=== PATIENT | female | born 1950 | race Two or more races ===

== ENCOUNTER 2020-02-16 11:05 | Outpatient (REF) | payer MEDICARE, OTHER, SELFPAY ==
[2020-02-16 12:22] LABS: Cholesterol 129 mg/dL; HDL Cholesterol 44 mg/dL; LDL Cholesterol Calculated 75 mg/dl; Triglycerides 51 mg/dL
[2020-02-16 18:19] LABS: Anion Gap 14 (12-20); Blood Urea Nitrogen 13 mg/dL (9-16); Calcium 8.8 mg/dL (8.4-10.2); Carbon Dioxide 26 mmol/L (22-29); Chloride 103 mmol/L (96-108); Estimated Glomerular Filt Rate > 60; Glucose Fasting 101 mg/dL (60-99); Potassium 4.7 mmol/l (3.3-5.1); Sodium 138 mmol/L (135-145)
[2020-02-21 11:37] LABS: Vitamin D 25-OH, D2 <4 ng/mL; Vitamin D 25-OH, D3 38 ng/mL; Vitamin D 25-OH, Total 38 ng/mL (30-100)
== END 2020-02-16 11:06 | disposition home or self-care (01) ==
LOC: HO.LAB 11:05
PROVIDERS: PCP Internal Medicine; Visit Provider Nurse Practitioner Family
DX: E78.00 Pure hypercholesterolemia, unspecified (principal); Z00.00 Encounter for general adult medical examination without abnormal findings
CPT/HCPCS: 80048; 80061; 82306

== ENCOUNTER 2020-05-14 16:14 | Outpatient (REF) | payer MEDICARE, OTHER, SELFPAY ==
[2020-05-14 16:40] LABS: MANUAL DIFF FLAG NO
[2020-05-14 16:53] LABS: Basophils Percent Auto 0.5 % (0-2); Eosinophils Percent Auto 0.6 % (0-4); Hematocrit 40.8 % (37-47); Hemoglobin 12.7 g/dl (12.0-16.0); Imm Gran Abs Auto 0.02 X10*3/uL (0.00-0.03); Imm Gran Pct Auto 0.3 % (0.0-0.4); Lymphocytes Absolute Auto 1.6 X10*3/uL (1.2-4.9); Lymphocytes Percent Auto 25.7 % (20-40); Mean Corpuscular HGB Conc 31.1 g/dl (31.0-35.0); Mean Corpuscular Hemoglobin 22.5 pg (27.0-33.0); Mean Corpuscular Volume 72.2 fL (80-98); Monocytes Absolute Auto 0.4 X10*3/uL (0.1-1.2); Monocytes Percent Auto 6.2 % (2-11); Neutrophils Absolute Auto 4.2 X10*3/uL (2.0-8.3); Neutrophils Percent Auto 66.7 % (45-73); Platelet Count 287 X10*3/uL (160-400); Red Blood Count 5.65 X10*6/uL (4.20-5.50); Red Cell Distribution Width 15.8 % (11.0-16.0); White Blood Count 6.3 X10*3/uL (4.8-10.8)
[2020-05-14 17:11] LABS: Anion Gap 14 (12-20); Blood Urea Nitrogen 20 mg/dL (9-16); Calcium 9.3 mg/dL (8.4-10.2); Carbon Dioxide 26 mmol/L (22-29); Chloride 107 mmol/L (96-108); Estimated Glomerular Filt Rate > 60; Glucose Fasting 87 mg/dL (60-99); Potassium 4.7 mmol/l (3.3-5.1); Sodium 142 mmol/L (135-145)
== END 2020-05-14 16:15 | disposition home or self-care (01) ==
LOC: HO.LAB 16:14
PROVIDERS: Nurse Practitioner Family; PCP Internal Medicine; Visit Provider Internal Medicine
DX: Z00.00 Encounter for general adult medical examination without abnormal findings (principal); R04.0 Epistaxis
CPT/HCPCS: 36415; 80048; 85025

== ENCOUNTER 2020-09-26 08:02 | Outpatient (REF) | payer MEDICARE, OTHER, SELFPAY ==
--- NOTE | 2020-09-26 08:27 | ECG_ITS ---
Test Reason : HYPERLIPIDEMIA Blood Pressure : / mmHG Vent. Rate : 063 BPM Atrial Rate : 063 BPM P-R Int : 134 ms QRS Dur : 076 ms QT Int : 408 ms P-R-T Axes : 059 010 048 degrees QTc Int : 417 ms Normal sinus rhythm Normal ECG When compared with ECG of 30-DEC-2019 10:43, No significant change was found Referred By: Melania Reynoso Electronically Signed By:NHI POLO MD
[2020-09-26 08:46] LABS: MANUAL DIFF FLAG NO
[2020-09-26 08:50] LABS: Basophils Percent Auto 0.5 % (0-2); Eosinophils Percent Auto 0.5 % (0-4); Hematocrit 43.2 % (37-47); Hemoglobin 13.5 g/dl (12.0-16.0); Imm Gran Abs Auto 0.01 X10*3/uL (0.00-0.03); Imm Gran Pct Auto 0.2 % (0.0-0.4); Lymphocytes Absolute Auto 1.6 X10*3/uL (1.2-4.9); Lymphocytes Percent Auto 36.9 % (20-40); Mean Corpuscular HGB Conc 31.3 g/dl (31.0-35.0); Mean Corpuscular Hemoglobin 22.5 pg (27.0-33.0); Monocytes Absolute Auto 0.4 X10*3/uL (0.1-1.2); Monocytes Percent Auto 8.1 % (2-11); Neutrophils Absolute Auto 2.3 X10*3/uL (2.0-8.3); Neutrophils Percent Auto 53.8 % (45-73); Platelet Count 276 X10*3/uL (160-400); Red Cell Distribution Width 18.1 % (11.0-16.0); White Blood Count 4.3 X10*3/uL (4.8-10.8)
[2020-09-26 09:12] LABS: Alanine Aminotransferase 36 U/L (0-31); Albumin Level 4.3 g/dL (3.5-5.0); Alkaline Phosphatase 84 U/L (39-117); Anion Gap 12 (12-20); Aspartate Amino Transferase 24 U/L (5-31); Bilirubin Total 1.3 mg/dL (0.0-1.0); Blood Urea Nitrogen 17 mg/dL (9-16); Calcium 9.4 mg/dL (8.4-10.2); Carbon Dioxide 25 mmol/L (22-29); Chloride 110 mmol/L (96-108); Cholesterol 140 mg/dL; Estimated Glomerular Filt Rate > 60; Glucose Fasting 103 mg/dL (60-99); HDL Cholesterol 52 mg/dL; LDL Cholesterol Calculated 75 mg/dl; Potassium 4.4 mmol/L (3.3-5.1); Sodium 143 mmol/L (135-145); Triglycerides 66 mg/dL
[2020-09-30 14:17] LABS: Vitamin D 25-OH, D2 <4 ng/mL; Vitamin D 25-OH, D3 46 ng/mL; Vitamin D 25-OH, Total 46 ng/mL (30-100)
== END 2020-09-26 08:03 | disposition home or self-care (01) ==
LOC: HO.LAB 08:02
PROVIDERS: PCP Internal Medicine; Visit Provider Internal Medicine
DX: E78.5 Hyperlipidemia, unspecified (principal); R07.9 Chest pain, unspecified; R04.0 Epistaxis; D64.9 Anemia, unspecified; E55.9 Vitamin D deficiency, unspecified; M81.0 Age-related osteoporosis without current pathological fracture
CPT/HCPCS: 36415; 80053; 80061; 82306; 85025; 93005

== ENCOUNTER 2020-11-15 09:52 | Outpatient (REF) | payer MEDICARE, OTHER, SELFPAY ==
--- NOTE | ~2020-11-15 | MM_ITS ---
EXAMINATION: MM SCREENING DIGITAL BREAST TOMOSYNTHESIS, BILATERAL CLINICAL INFORMATION: Screening. Asymptomatic. History reduction mammoplasty 2010. The lifetime risk of breast cancer based on the Tyrer-Cuzick Model is 7%. COMPARISON: Mammography: 11/09/2019, 01/16/2019, 01/12/2018 TECHNIQUE: Digital breast tomosynthesis is performed in both the craniocaudal and mediolateral oblique views along with computer-aided detection (CAD). Synthesized 2D images are generated from the tomosynthesis. FINDINGS: There are scattered areas of fibroglandular density (ACR BI-RADS breast composition Category b). Parenchymal pattern is similar to prior studies. There is stable scarring and scattered clips consistent with the reduction mammoplasty. Biopsy clip marker again noted posterior 12:00 left breast. Neither breast shows interval mass or developing density or interval architectural abnormality. There are no abnormal calcifications. The axilla and skin contours are unremarkable. No significant changes. MM/MM tomosynthesis screening BI IMPRESSION: No mammographic evidence of malignancy. ASSESSMENT: BI-RADS 2: Benign RECOMMENDATION: Routine annual mammography screening. This patient's information was entered into a reminder system with a target due date for their next mammogram.
== END 2020-11-15 09:53 | disposition home or self-care (01) ==
LOC: HO.MAMMO 09:52
PROVIDERS: Visit Provider Obstetrics & Gynecology Gynecology
DX: Z12.31 Encounter for screening mammogram for malignant neoplasm of breast (principal)
CPT/HCPCS: 77063; 77067

== ENCOUNTER 2021-04-23 09:54 | Outpatient (REF) | payer MEDICARE, OTHER, SELFPAY ==
--- NOTE | ~2021-04-23 | MM_ITS ---
EXAMINATION: BONE DENSITOMETRY CLINICAL INDICATION: Osteoporosis. COMPARISON: Previous BD dated 04/18/2019 and baseline BD dated 11/17/2006. TECHNIQUE: Using a Bondsy DXA System (software version: 13.1) manufactured by [employer], dual-energy x-ray absorptiometry was performed of the lumbar spine and left hip. The images are of good technical quality. Summary results are attached. FINDINGS: AP SPINE L1-L4: Current: BMD 0.805 g/cm2, Z-score -1.0, T-score -3.1, osteoporosis, 9.2% decrease from previous, 9.6% decrease from baseline (<5% change is not significant). Prior: BMD 0.887 g/cm2. Baseline: BMD 0.890 g/cm2. LEFT FEMUR, NECK: Current: BMD 0.800 g/cm2, Z-score 0.3, T-score -1.7, osteopenia. Prior: BMD 0.759 g/cm2. Baseline: BMD 0.854 g/cm2. LEFT FEMUR, TOTAL: Current: BMD 0.826 g/cm2, Z-score 0.4, T-score -1.4, osteopenia, 1.1% increase from previous, 10.8% decrease from baseline (<5% change is not significant). Prior: BMD 0.817 g/cm2. Baseline: BMD 0.926 g/cm2. IDENTIFIED RISK FACTORS: Early menopause, height loss, low calcium intake, osteoporosis, secondary osteoporosis. HISTORY OF FRACTURE: None listed. MEDICATIONS: Calcium, vitamin D. MM/XR DEXA axial skeleton IMPRESSION: 1. DIAGNOSIS: Osteoporosis based on the lowest T-score value of -3.1 in the lumbar spine applying World Health Organization criteria. 2. 10-YEAR FRACTURE RISK PREDICTION, FRAX: According to the guidelines, FRAX calculation should only be performed on patients in the osteopenia bone density category. 3. Treatment Recommendations: NOF guidelines recommend consideration for treatment in postmenopausal women and men age 50 and older presenting with the following: -A hip or vertebral (clinical or morphometric) fracture. -T-score less than or equal to -2.5 at the femoral neck or spine after appropriate evaluation to exclude secondary causes. -Low bone mass at the hip or spine and a 10-year fracture probability by FRAX of greater than or equal to 3% for hip fracture or greater than or equal to 20% for major osteoporotic fracture based on the [place] adapted WHO algorithm. 4. Other Recommendations: All treatment decisions require clinical judgment and consideration of individual patient factors, including patient preferences, comorbidities, previous drug use, risk factors not captured in the FRAX model (e.g. frailty, falls, vitamin D deficiency, increased bone turnover, interval significant decline in bone density) and possible under or overestimation of fracture risk by FRAX. Additional medical evaluation for secondary cause of low bone mineral density may be appropriate. FUTURE SCAN RECOMMENDATION: People with diagnosed cases of osteoporosis or at high risk for fracture should have regular bone mineral density tests. For patients eligible for Medicare, routine testing is allowed once every 2 years. The testing frequency can be increased to one year for patients who have rapidly progressing disease, those who are receiving or discontinuing medical therapy to restore bone mass, or have additional risk factors.
== END 2021-04-23 09:55 | disposition home or self-care (01) ==
LOC: HO.MAMMO 09:54
PROVIDERS: PCP Internal Medicine; Visit Provider Obstetrics & Gynecology Gynecology
DX: M81.0 Age-related osteoporosis without current pathological fracture (principal); E83.51 Hypocalcemia; Z78.0 Asymptomatic menopausal state
CPT/HCPCS: 77080

== ENCOUNTER → 2021-05-08 08:58 | Outpatient (BNVA) | payer MEDICARE, OTHER, SELFPAY | PROVIDERS: PCP Internal Medicine; Visit Provider Physician Assistant | DX: R19.4 Change in bowel habit (principal) | CPT/HCPCS: 99202 ==

== ENCOUNTER 2021-06-03 10:25 | Day surgery (SDC) | payer MEDICARE, OTHER, SELFPAY ==
[2021-06-03 09:03] VITALS: BMI 22.1
--- NOTE | 2021-06-03 12:32 | MHC.SHP ---
Pre-Procedural Eval Section A Date of Service: 06/03/21 Section B Chief Complaint: melena Details of Present Illness: altered bowel habits Relevant Family History (Specify if Yes): No Relevant Social History: None Present Medications: see Short Stay Collaborative assessment Medical History: Significant History (Aphasia Dyslipidemia Epistaxis Osteoporosis) History of Previous Operations: Relevant previous surgery/procedure and date(s) (H/O bilateral breast reduction surgery History of esophagogastroduodenoscopy (EGD) Hx of colonoscopy) Allergies: Allergies Allergy/AdvReac Type Severity Reaction Status Date / Time peanut [PEANUT] Allergy Severe ANAPHYLAXIS Verified 05/08/21 09:05 Review of Systems Sugical H&P ROS: Negative: Constitution, Cardiovascular, Respiratory, Neurological, Psychiatric, Hem-Onc, Allergic/Immunologic, Gastrointestinal, Genitourinary, Musculoskeletal, Integumentary, Endocrine and Eyes/Ears/Nose/Throat Exam Surgical H&P Exam: Normal: HEENT, Normal: Heart, Normal: Lungs, Normal: Extremities, Normal: Abdomen, Normal: Skin and Normal: Neurological Plan Diagnosis/Plan: Unchanged I have reviewed the history and physical and performed a pertinent physical examination on my patient. No changes have occurred unless specified. EGD being done due to description of melenic stools.
--- NOTE | 2021-06-03 12:38 | P.CONAN_ITS ---
[facility] Active Problems Active Problems: All Active Problems (Updated 05/08/21 @ 09:53 by Lillie Lockett PA-C) Change in bowel habits (Acute) Pre-op evaluation (Acute) Epistaxis (Acute) Aphasia (Acute) Dyslipidemia (Acute) Osteoporosis (Acute) Tingling of left upper extremity (Acute) Physical exam (Acute) Past Medical History Medical History (Updated 05/08/21 @ 09:53 by Lillie Lockett PA-C) Aphasia Dyslipidemia Epistaxis Osteoporosis Physical exam Pre-op evaluation Family History Family History Father CVD (cardiovascular disease) Mother Cancer Daughter No problems noted. Family history of problems with anesthesia: No Surgical History Surgical History H/O bilateral breast reduction surgery History of esophagogastroduodenoscopy (EGD) Hx of colonoscopy History of Problems with Anesthesia: No Social History Social History Housing: Apartment Alcohol intake: never Patient Tobacco Use Status: Never used Tobacco e-Cigarette/Vaping Use: Never Used Second Hand Smoke Exposure: No Advance Directives: No Advance Directives Information Provided: Yes service: No Current occupational status: unemployed and disabled Meds Allergies Allergy/AdvReac Type Severity Reaction Status Date / Time peanut [PEANUT] Allergy Severe ANAPHYLAXIS Verified 05/08/21 09:05 Home Medications Medication Instructions Recorded Confirmed Last Taken Type ascorbic acid (vitamin C) 100 mg 100 mg PO DAILY 02/16/20 05/08/21 Unknown History chewable tablet cholecalciferol (vitamin D3) 50 50 mcg PO DAILY 02/16/20 05/08/21 Unknown History mcg (2,000 unit) capsule Exam Exam Date and Time: June 03, 2021 1238 Height,Weight and Vital Signs: Height 5 ft 1 in Weight 53.07 kg Airway Mallampati Class: I TM Dist: >3cm Neck ROM: Full Assessment and Plan Assessment Anesthesia Assessment: Anesthesia Plan Discussed Final Anesthetic Review Family History of Problems with Anesthesia: No History of Problems with Anesthesia: No NPO: Yes ASA Class: II Final Preanesthetic Review: No Changes in Pt Med Stat, Meds/Allgs Chart Reviewed, Consent Obtained/Reviewed and Anes Risks/Benef Reviewed Patient Risk: Intermediate Procedure Risk: Low Anesthetic Plan Anesthetic Plan: MAC: Disposition: Standard PACU
[2021-06-03 12:41] VITALS: BMI 21.7
[2021-06-03 12:53] VITALS: BP 132/76; PULSE 78; RESP 16; TEMP 37.2; O2SAT 98
[2021-06-03] MEDS: Lactated Ringers 1,000 ML 100 ML IVCONT (13:08)
--- NOTE | 2021-06-03 13:14 | P.BOP_ITS ---
Brief Operative Note Date of Service: 06/03/21 Pre-op diagnosis: altered bowel habit, melena Post-op diagnosis: same Procedure: see op note Surgeon: Liza Love MD Anesthesia: MAC Was an Outdoor Power Equipment Mechanic used for this Procedure?: No Estimated blood loss (mL): 0 Condition: stable Disposition: PACU
--- NOTE | 2021-06-03 13:15 | P.OP_ITS ---
Operative Note Operative Note Date of Service: 06/03/21 Narrative: Operative Information Procedure Description: EGD, Colonoscopy FLEXIBLE TRANSORAL UPPER GASTROINTESTINAL ENDOSCOPY AND COLONOSCOPY PROCEDURE NOTE UPPER ENDOSCOPY Consent: Indications for the procedure and potential complications of bleeding, perforation, reaction to medications and missed diagnosis were discussed with the patient and informed consent was obtained. Instrument: Olympus GIF H 190 J mid size upper endoscope Monitoring: Vital signs and clinical assessment, continuous EKG monitoring, Pulse oximetry, Carbon Dioxide monitoring and blood pressure monitoring were done throughout the procedure. Procedure: The patient was placed in the left lateral decubitis position and pre-procedure medications were administered and a bite block was placed. The endoscope was inserted into the mouth and advanced under direct vision to the third part of duodenum. A careful inspection was made as the upper endoscope was withdrawn including a retroflexed examination of the proximal stomach; Findings and interventions are described below. Findings: Larynx:normal Esophagus: GE junction at 37 cm, diaphragm hiatus at 37 cm, erythema and inflammation at GEJ, bx taken Stomach: Patchy erythema and scarring. Biopsies were obtained. Grade 2 flap valve on retroflexed examination of the cardia. Duodenum: Erythema of bulb, bx taken Intervention: Biopsies as noted above COLONOSCOPY Instrument: Olympus variable stiffness pediatric scope 190L Colonoscopy Monitoring: Vital signs and clinical assessment, continuous EKG monitoring, Pulse oximetry, Carbon Dioxide monitoring and blood pressure monitoring were done throughout the procedure. Colon withdrawal time was 11 minutes. Procedure: The patient was placed in the left lateral decubitis position and pre-procedure medications were administered. After a digital rectal examination of the ano-rectum, the video colonoscope was inserted into the rectum and advanced through the colon to the cecum/TI. The colonoscope was slowly withdrawn in a retrograde panoramic fashion and the colon mucosa was carefully examined including a retroflexed view of the rectum. Findings and interventions are described below. Procedure Difficulty: easy Findings: Terminal Ileum-normal Cecum:normal, tattoo leida noted Ascending Colon: 10 mm sessile polyp removed with cold snare, not retrieved Transverse Colon -normal Descending Colon:normal Sigmoid Colon: normal Rectum: Retroflexion with small internal hemorrhoids, grade I Anorectum - normal Colon preparation: Mcclelland Bowel Preparation Scale Right colon; 2 Transverse colon: 2 Left colon; 2 (0 = Unprepared colon segment with mucosa not seen due to solid stool that cannot be cleared. 1 = Portion of mucosa of the colon segment seen, but other areas of the colon segment not well seen due to staining, residual stool and/or opaque liquid. 2 = Minor amount of residual staining, small fragments of stool and/or opaque liquid, but mucosa of colon segment seen well. 3 = Entire mucosa of colon segment seen well with no residual staining, small fragments of stool or opaque liquid) Impression and Post Procedure Diagnosis: Endoscopy Findings: gastritis esophagitis duodenitis Colonoscopy Findings: polyp internal hemorrhoids Plan: Await Pathology results Repeat Colonoscopy in 5 years due to polyp or earlier if clinically indicated High fiber diet leaflet avoid straining at stool, epsom salts and sitz bath, anusol supps or cream await upper GI bx, may benefit from PPI Above findings were reviewed with the patient and relevant handouts were provided if indicated.
[2021-06-03 14:16] VITALS: BP 115/71; PULSE 77; RESP 16; TEMP 36.1; O2SAT 99
[2021-06-03 14:31] VITALS: BP 126/75; PULSE 77; RESP 18; TEMP 36.2; O2SAT 100
== END 2021-06-03 15:03 | disposition home or self-care (01) ==
PROVIDERS: PCP Internal Medicine; Visit Provider Internal Medicine Gastroenterology
PROC: (CPT 45385; principal; 2021-06-03 12:50)
DX: K92.1 Melena (principal); K63.5 Polyp of colon; K64.0 First degree hemorrhoids; K59.00 Constipation, unspecified; K29.50 Unspecified chronic gastritis without bleeding; B96.81 Helicobacter pylori [H. pylori] as the cause of diseases classified elsewhere; K29.80 Duodenitis without bleeding; K20.80 Other esophagitis without bleeding; K44.9 Diaphragmatic hernia without obstruction or gangrene; E78.5 Hyperlipidemia, unspecified; R47.01 Aphasia; R04.0 Epistaxis; M81.0 Age-related osteoporosis without current pathological fracture; Z79.82 Long term (current) use of aspirin; Z79.899 Other long term (current) drug therapy; Z91.010 Allergy to peanuts
CPT/HCPCS: 45385; 43239; 88305; 88342

== ENCOUNTER 2021-07-17 11:11 | Outpatient (REF) | payer MEDICARE, OTHER, SELFPAY ==
[2021-07-19 15:25] LABS: H Pylori Breath Test Negative (Negative)
== END 2021-07-17 11:12 | disposition home or self-care (01) ==
LOC: HO.LNP 11:11
PROVIDERS: PCP Internal Medicine; Visit Provider Physician Assistant
DX: A04.8 Other specified bacterial intestinal infections (principal); K63.5 Polyp of colon
CPT/HCPCS: 83013; 99212

== ENCOUNTER 2021-07-18 08:49 | Outpatient (REF) | payer MEDICARE, OTHER, SELFPAY ==
[2021-07-18 09:49] LABS: Basophils Percent Auto 0.8 % (0-2); Eosinophils Absolute Auto 0.1 X10*3/uL (0.0-0.4); Eosinophils Percent Auto 1.6 % (0-4); Hematocrit 42.3 % (37.0-47.0); Hemoglobin 13.1 g/dl (12.0-16.0); Imm Gran Abs Auto 0.01 X10*3/uL (0.00-0.03); Imm Gran Pct Auto 0.3 % (0.0-0.4); Lymphocytes Absolute Auto 1.5 X10*3/uL (1.2-4.9); Lymphocytes Percent Auto 40.2 % (20-40); MANUAL DIFF FLAG SCAN; Mean Corpuscular Hemoglobin 22.4 pg (27.0-33.0); Mean Corpuscular Volume 72.3 fL (80.0-98.0); Mean Platelet Volume 11.7 fL (9.4-12.3); Monocytes Absolute Auto 0.3 X10*3/uL (0.1-1.2); Monocytes Percent Auto 8.1 % (2-11); Neutrophils Absolute Auto 1.8 x10*3/uL (2.0-8.3); Platelet Count 311 X10*3/uL (160-400); Red Blood Count 5.85 X10*6/uL (4.20-5.50); Red Cell Distribution Width 17.1 % (11.0-16.0); SCAN SMEAR FLAG 1; White Blood Count 3.7 X10*3/uL (4.8-10.8)
[2021-07-18 10:19] LABS: Alanine Aminotransferase 68 U/L (0-31); Alkaline Phosphatase 82 U/L (39-117); Anion Gap 10 (12-20); Aspartate Amino Transferase 48 U/L (5-31); Bilirubin Direct 0.4 mg/dL (0.0-0.5); Bilirubin Total 0.9 mg/dL (0.0-1.0); Blood Urea Nitrogen 12 mg/dL (9-16); Calcium 9.3 mg/dL (8.4-10.2); Carbon Dioxide 28 mmol/L (22-29); Chloride 108 mmol/L (96-108); Cholesterol 166 mg/dL; Estimated Glomerular Filt Rate > 60; Glucose Random 91 mg/dL (60-115); HDL Cholesterol 53 mg/dL; LDL Cholesterol Calculated 104 mg/dl; Potassium 5.1 mmol/L (3.3-5.1); SLIDE REVIEW VERIFIED; Sodium 141 mmol/L (135-145); Total Protein 6.8 g/dL (6.5-8.0); Triglycerides 47 mg/dL
== END 2021-07-18 08:50 | disposition home or self-care (01) ==
LOC: HO.LAB 08:49
PROVIDERS: PCP Internal Medicine; Visit Provider Physician Assistant
DX: R79.89 Other specified abnormal findings of blood chemistry (principal); A04.8 Other specified bacterial intestinal infections; K76.0 Fatty (change of) liver, not elsewhere classified
CPT/HCPCS: 36415; 80053; 80061; 82248; 85025

== ENCOUNTER → 2021-08-06 11:52 | Outpatient (BNVA) | payer MEDICARE, OTHER, SELFPAY | PROVIDERS: Visit Provider Physician Assistant | DX: R74.8 Abnormal levels of other serum enzymes (principal); A04.8 Other specified bacterial intestinal infections | CPT/HCPCS: Q3014 ==

== ENCOUNTER 2021-08-08 11:51 | Outpatient (REF) | payer MEDICARE, OTHER, SELFPAY ==
[2021-08-08 14:20] LABS: Thyroid Stimulating Hormone 0.86 uIU/mL (0.32-4.0)
[2021-08-11 04:15] LABS: ~HepC Num1 0.08 S/CO (0.00-0.79); ~Hepatitis C Antibody Nonreactive (Nonreactive)
[2021-08-11 04:34] LABS: HBS Num1 5.24 mIU/mL (0-7.99); HBc Num1 0.08 S/CO (0.00-0.79); HBsAGNum1 0.27 S/CO (0.00-0.99); Hepatitis B Core Antibody Nonreactive (Nonreactive); Hepatitis B Surface Antigen Negative (Negative); ~Hepatitis B Surface Antibody NONREACTIVE (Nonreactive)
[2021-08-11 14:26] LABS: Alpha 1 Anti-trypsin 159 mg/dL (83-199)
[2021-08-11 19:32] LABS: Anti Nuclear Antibody Screen POSITIVE (NEGATIVE)
[2021-08-13 03:56] LABS: Hepatitis A Antibody IgM 0.23 Index (0-0.79); ~Hepatitis A Antibody IgM Nonreactive (Nonreactive)
[2021-08-14 12:32] LABS: Mitochondrial Antibodies NEGATIVE (NEGATIVE)
== END 2021-08-08 11:52 | disposition home or self-care (01) ==
LOC: HO.LAB 11:51
PROVIDERS: PCP Internal Medicine; Visit Provider Physician Assistant
DX: Z01.84 Encounter for antibody response examination (principal); R74.01 Elevation of levels of liver transaminase levels; K59.09 Other constipation; R79.89 Other specified abnormal findings of blood chemistry
CPT/HCPCS: 36415; 82103; 84443; 86038; 86039; 86255; 86256; 86704; 86706; 86709; 86803; 87340

== ENCOUNTER 2021-09-08 08:56 | Outpatient (REF) | payer MEDICARE, OTHER, SELFPAY ==
--- NOTE | ~2021-09-08 | US_ITS ---
EXAMINATION: US COMPLETE ABDOMEN WITH LIVER ELASTOGRAPHY CLINICAL INFORMATION: Elevated liver function tests. Abnormal bilirubin. COMPARISON: None. TECHNIQUE: Real-time imaging of the abdominal viscera. Noninvasive ultrasound liver fibrosis assessment is performed using Guevara ElastPQ point quantification shear wave elastography (2D-SWE) with a C5-2 MHz transducer. Multiple elastography samples are obtained. FINDINGS: PANCREAS: Normal. ABDOMINAL AORTA: The proximal, middle, and distal aortic segments are normal in caliber. INFERIOR VENA CAVA: Visualized portions are normal. LIVER: Normal. The liver demonstrates normal size, contour and echogenicity. No focal lesion or intrahepatic biliary duct dilatation. The right lobe measures 13 cm in length. The left lobe measures 6 cm in length. Portal flow is normal/hepatopedal Shear wave liver elastography median stiffness is 1.6 m/s (reference: normal median stiffness is 1.3 m/s or less). IQR/median stiffness to assess sampling precision is 0.17 (reference: good quality data set is IQR/median stiffness of 0.15 or less). GALLBLADDER: Normal. The gallbladder is physiologically distended without evidence of stones, sludge, polyps, wall thickening or pericholecystic fluid. COMMON BILE DUCT: Normal in caliber measuring 0.3 cm in diameter. RIGHT KIDNEY: Normal. No hydronephrosis. No renal calculi or focal parenchymal lesions. The kidney measures 10 cm in maximum dimension. LEFT KIDNEY: Normal. No hydronephrosis. No renal calculi or focal parenchymal lesions. The kidney measures 9 cm in maximum dimension. SPLEEN: Normal. The spleen measures 8 cm in maximum dimension. FREE FLUID: None. US/US abdomen comp w elastography IMPRESSION: 1. Impression: Unremarkable exam 2. Liver elastography: Slightly limited due to sampling error. In the absence of other known clinical signs, rules out compensated advanced chronic liver disease. REFERENCE: Society of Radiologists in Ultrasound Liver Stiffness Thresholds (2020): LIVER STIFFNESS THRESHOLDS: *Liver Stiffness equal or less than 1.3 m/s: High probability of being normal. *Liver Stiffness less than 1.7 m/s: In the absence of other known clinical signs, rules out compensated advanced chronic liver disease. *Liver Stiffness 1.7-2.1 m/s: Suggestive of compensated advanced chronic liver disease but need further test for confirmation. *Liver Stiffness over 2.1 m/s: Rules in compensated advanced chronic liver disease. *Liver Stiffness over 2.4 m/s: Suggestive of clinically significant portal hypertension. QUALITY OF DATA SET: *IQR/Median value equal or less than 0.15 implies a quality data set. *IQR/Median value over 0.15 implies a poor quality data set. SIGNIFICANT CHANGE FROM PRIOR EXAM: Significant change if liver stiffness measurement is 10% or greater from prior exam. OTHER CONSIDERATIONS: The stage of liver fibrosis may be overestimated in the setting of acute hepatitis, liver inflammation, elevated liver function tests, hepatic vascular congestion, obstructive cholestasis, non-fasting state, and infiltrative diseases such as amyloidosis and lymphoma. In some patients with NAFLD, the liver stiffness thresholds for compensated advanced chronic liver disease may be lower. In causes other than viral hepatitis and NAFLD, liver stiffness thresholds are not well established.
== END 2021-09-08 08:57 | disposition home or self-care (01) ==
LOC: HO.US 08:56
PROVIDERS: Visit Provider Physician Assistant
DX: R74.8 Abnormal levels of other serum enzymes (principal); R79.89 Other specified abnormal findings of blood chemistry
CPT/HCPCS: 76705; 76981

== ENCOUNTER 2021-11-18 09:32 | Outpatient (REF) | payer MEDICARE, OTHER, SELFPAY ==
--- NOTE | ~2021-11-18 | MM_ITS ---
EXAMINATION: MM SCREENING DIGITAL BREAST TOMOSYNTHESIS, BILATERAL CLINICAL INFORMATION: Screening. Asymptomatic. Prior reduction mammoplasty, 2010. The lifetime risk of breast cancer based on the Tyrer-Cuzick Model is 2%. COMPARISON: Mammography: 11/15/2020, 11/09/2019, 01/16/2019 TECHNIQUE: Digital breast tomosynthesis is performed in both the craniocaudal and mediolateral oblique views along with computer-aided detection (CAD). Synthesized 2D images are generated from the tomosynthesis. FINDINGS: There are scattered areas of fibroglandular density (ACR BI-RADS breast composition Category b). There is bilateral stable scarring and surgical clips consistent with the prior reduction mammoplasty. Biopsy clip marker present left posterior 12:00 position. Neither breast shows interval mass or architectural abnormality or developing density. No abnormal calcifications. No significant changes. MM/MM tomosynthesis screening BI IMPRESSION: No mammographic evidence of malignancy. ASSESSMENT: BI-RADS 2: Benign RECOMMENDATION: Routine annual mammography screening. This patient's information was entered into a reminder system with a target due date for their next mammogram.
== END 2021-11-18 09:33 | disposition home or self-care (01) ==
LOC: HO.MAMMO 09:32
PROVIDERS: Visit Provider Obstetrics & Gynecology Gynecology
DX: Z12.31 Encounter for screening mammogram for malignant neoplasm of breast (principal)
CPT/HCPCS: 77063; 77067

== ENCOUNTER 2022-03-24 13:19 | Emergency (ER) | payer MEDICARE, OTHER, SELFPAY ==
--- NOTE | ~2022-03-24 | CT_ITS ---
EXAMINATION: CT HEAD WITHOUT CONTRAST CLINICAL INFORMATION: Dizziness. Facial tingling. COMPARISON: Head CT 10/22/2019. TECHNIQUE: Contiguous axial imaging was performed from the skull base to vertex without intravenous administration of contrast. This CT examination was performed using dose optimization techniques as appropriate, variously including the following: *Automated exposure control *Adjustment of mA and/or kV according to patient size (this includes techniques or standardized protocols for targeted exams where dose is matched to indication/reason for exam; i.e. extremities or head) *Use of iterative reconstruction technique DLP: 593 mGy-cm. FINDINGS: There is no intracranial hemorrhage, extra-axial collection, or CT evidence of acute large territorial infarction. There is a chronic infarct in left middle cerebral artery vascular territory involving the parietal lobe and temporal lobe. There is mild ex vacuo dilatation of the left lateral ventricular atrium. No hydrocephalus is seen. Mild hypoattenuation is noted within the cerebral white matter, typical of chronic microangiopathy. The extracranial structures are within normal limits. CT/CT head/brain wo IV con IMPRESSION: No acute intracranial abnormality. Chronic infarct in the left middle cerebral artery vascular territory.
[2022-03-24 13:24] VITALS: BP 143/84; PULSE 69; RESP 14; TEMP 36.4; O2SAT 97; BMI 21.5
--- NOTE | 2022-03-24 13:29 | ED.DIZZY ---
HPI - Dizziness General Chief Complaint: Dizziness Stated Complaint: Stroke symptoms Time Seen by Provider: 03/24/22 13:51 Related Data Home Medications Medication Instructions Recorded Confirmed ascorbic acid (vitamin C) 100 mg 100 mg PO DAILY 02/16/20 05/08/21 chewable tablet cholecalciferol (vitamin D3) 50 50 mcg PO DAILY 02/16/20 05/08/21 mcg (2,000 unit) capsule Previous Rx's Medication Instructions Recorded methylcellulose (laxative) 500 mg 500 mg PO BID #60 tabs 05/08/21 tablet (Citrucel) polyethylene glycol 3350 17 gram 17 g PO DAILY #30 ea 05/08/21 oral powder packet (Miralax) aspirin 81 mg tablet,delayed 81 mg PO DAILY #90 tabs 12/06/21 release atorvastatin 20 mg tablet 20 mg PO DAILY 90 days #90 tabs 12/13/21 Allergies Allergy/AdvReac Type Severity Reaction Status Date / Time peanut [PEANUT] Allergy Severe ANAPHYLAXIS Verified 08/06/21 11:53 PMFSH Past Medical History Medical History Aphasia Dyslipidemia Epistaxis Osteoporosis Physical exam Pre-op evaluation Surgical History H/O bilateral breast reduction surgery History of esophagogastroduodenoscopy (EGD) Hx of colonoscopy Family History Family History Father CVD (cardiovascular disease) Mother Cancer Daughter No problems noted. Social History Social History Housing: Apartment Alcohol intake: never Patient Tobacco Use Status: Never used Tobacco e-Cigarette/Vaping Use: Never Used Second Hand Smoke Exposure: No Advance Directives: No Advance Directives Information Provided: No service: No Current occupational status: unemployed and disabled Physical Exam Vital Signs: Vital Signs: Last Vital Signs Temp 97.5 F 03/24/22 13:24 Pulse 69 03/24/22 13:24 Resp 14 03/24/22 13:24 BP 143/84 H 03/24/22 13:24 Pulse Ox 97 03/24/22 13:24 O2 Del Method 03/24/22 13:24 BMI result Body Mass Index 21.5 Course Course Course Narrative: 71F with 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 She denies any falls and drove herself to her Speech and Hearing appt this morning. Staff from clinic unavailable for further information at this time. VS Reviewed GEN: NAD EARS: wnl THROAT: wnl LUNGS: CTAB CVS: RRR ABD: NT/ND Neuro: no pronator drift, facial asymmetry+, word finding, CN2-12 otherwise grossly intact, strength 5/5 symmetrical *SUBACUTE, and being taken to main ER now* Medications Administered Discontinued Medications Generic Name Dose Route Start Last Admin Trade Name Freq PRN Reason Stop Dose Admin Metoclopramide HCl 10 mg 03/24/22 15:20 03/24/22 16:35 Metoclopramide Hcl 10 Mg/2 Ml Vial IVPUSH 03/24/22 15:21 Not Given ONCE ONE Discharge Plan Discharge Clinical Impression: Headache, Dizziness Patient Disposition: Home, Self-Care Instructions: Acute Headache (ED), Dizziness (ED) Prescriptions: No Action aspirin 81 mg tablet,delayed release (DR/EC) 81 mg PO DAILY Qty: 90 3RF atorvastatin 20 mg tablet 20 mg PO DAILY 90 Days Qty: 90 1RF cholecalciferol (vitamin D3) 50 mcg (2,000 unit) capsule 50 mcg PO DAILY ascorbic acid (vitamin C) 100 mg tablet,chewable 100 mg PO DAILY polyethylene glycol 3350 [Miralax] 17 gram powder in packet 17 g PO DAILY Qty: 30 5RF Citrucel 500 mg tablet 500 mg PO BID Qty: 60 5RF Interventions: ED Discharge Assessment Last Done: 03/24/22 17:05 Discharge Date/Time: 03/24/22 17:05 Print Language: Faroese
--- NOTE | 2022-03-24 13:30 | ECG_ITS ---
Test Reason : DIZZINESS Blood Pressure : / mmHG Vent. Rate : 062 BPM Atrial Rate : 062 BPM P-R Int : 132 ms QRS Dur : 088 ms QT Int : 394 ms P-R-T Axes : 037 004 045 degrees QTc Int : 399 ms Normal sinus rhythm Nonspecific T wave abnormality Abnormal ECG When compared with ECG of 26-SEP-2020 08:35, No significant change was found Referred By: Rosario Paula Electronically Signed By:NHI POLO MD
--- OUTSIDE RECORDS SUMMARY | 2022-03-24 13:47 | XMS_ITS | Continuity of Care Document ---
:1950 Author Organization [facility] Address [address] [place] [address]- Care Team Providers Name Role Phone Preston Odom MD Primary Care Physician Encounter [facility] Date(s): 05/14/20 - 06/13/20 [facility] [address] [place] [id number] Allergies, Adverse Reactions, Alerts Substance Reaction Severity Status Nuts Active statins Active Medications alendronate 70 mg oral tablet 1 tablet = 70 mg, By Mouth, Every week, with 6-8 oz plain water, at least 30 minutes before first food, beverage, or medication of the day, # 12 tablet, 3 Refills, Maintenance, 03/24/18 14:28:55 EST, Tablet Start Date: 03/24/18 Status: OrderedAspirin Enteric Coated 81 mg oral delayed release tablet 0 Refills, Maintenance, 06/06/19 9:07:00 EST Start Date: 06/06/19 Status: Orderedatorvastatin 20 mg oral tablet 0 Refills, Maintenance, 06/06/19 9:06:00 EST Start Date: 06/06/19 Status: OrderedBone Solid Bone Solid, Refills 0, Maintenance, 1000 i.u Vitamin d and 1011 mg Calcium, 04/27/17 11:09:10, Compound Start Date: 04/27/17 Status: OrderedCalcium 500+D 1 tablet, 2 times a day, 0 Refills, Maintenance, 07/16/16 14:50:55 Start Date: 07/16/16 Status: Orderedgarlic oral tablet 0 Refills, Maintenance, 04/27/17 11:10:34 Start Date: 04/27/17 Status: Orderedmagnesium citrate - oral tablet 0 Refills, Maintenance, 07/16/16 14:51:21 Start Date: 07/16/16 Status: OrderedMultivitamin Daily, 0 Refills, Maintenance, 04/27/17 11:08:52 Start Date: 04/27/17 Status: OrderedVitamin D3 1000 intl units oral tablet 1 tablet = 1,000 International_Units, By Mouth, Daily, # 30 tablet, 0 Refills, Maintenance, 07/16/1713:51:31, Tablet Start Date: 07/16/16 Status: Ordered Problem List Condition Effective Dates Status Health Status Informant Osteoporosis, Active postmenopausal(Confirmed)
--- OUTSIDE RECORDS SUMMARY | 2022-03-24 13:47 | XMS_ITS | Continuity of Care Document ---
:1950 Author Organization [facility] Address [address] [place] [address]- Care Team Providers Name Role Phone Bunny Rhodes MD, Nikos Primary Care Physician Encounter [facility] Date(s): 07/01/21 - 07/31/[address] [address]- Allergies, Adverse Reactions, Alerts Substance Reaction Severity Status Nuts Active Peanuts THROAT CLOSES,ITCHING Active statins Active Immunizations Given and Recorded Vaccine Date Status Refusal Reason SARS-CoV-2 (COVID-19) mRNA-1273 vaccine 02/12/21 Recorded SARS-CoV-2 (COVID-19) mRNA-1273 vaccine 07/23/20 Recorded SARS-CoV-2 (COVID-19) mRNA-1273 vaccine 06/25/20 Recorded zoster vaccine, inactivated 02/05/21 Recorded influenza virus vaccine, inactivated 02/05/21 Recorded influenza virus vaccine, inactivated 03/11/20 Recorded pneumococcal 23-valent vaccine1 01/20/21 Given Hepatitis A-Hepatitis B Vaccine2 06/25/10 Given Hepatitis A-Hepatitis B Vaccine3 11/28/09 Given Hepatitis A-Hepatitis B Vaccine4 10/29/09 Given Meningococcal Conjugate Vaccine5 11/28/09 Given Typhoid Vaccine, Inactivated 11/28/09 Given Yellow Fever Vaccine 10/29/09 Given Poliovirus Vaccine, Inactivated 10/29/09 Given 1Result Comment: [facility]# [id number] Note: twinrix #33Admin Note: twiinrix #24Admin Note: TWINRIX #15Admin Note: menactra Medications aspirin 81 mg oral tablet, chewable 81 mg, By Mouth, Daily, Refills 0, Maintenance, 09/22/18 16:15:52 EDT Start Date: 09/22/18 Status: OrderedAspirin Enteric Coated 81 mg oral [...] Maintenance, 07/16/16 14:50:55 Start Date: 07/16/16 Status: OrderedClaritin 24 Hour Allergy = 10 mg, By Mouth, Daily, 0 Refills, Maintenance, 09/20/18 8:57:35 EDT Start Date: 09/20/18 Status: Orderedgarlic oral tablet 0 Refills, Maintenance, 04/27/17 11:10:34 Start Date: 04/27/17 Status: Orderedmagnesium citrate - oral tablet 0 Refills, Maintenance, 07/16/16 14:51:21 Start Date: 07/16/16 Status: OrderedMisc Rx Refills 0, Maintenance, Iron daily 25 mg, 06/12/21 9:03:00 EST, Supply Start Date: 06/12/21 Status: OrderedMultivitamin Daily, 0 Refills, Maintenance, 04/27/17 11:08:52 Start Date: 04/27/17 Status: OrderedVitamin D3 1000 intl units oral tablet 1 tablet = 1,000 International_Units, By Mouth, Daily, # 30 tablet, 0 Refills, Maintenance, 07/16/1713:51:31, Tablet Start Date: 07/16/16 Status: Ordered Problem List Condition Effective Dates Status Health Status Informant Constipation(Confirmed) Active Duodenitis(Confirmed) Active Expressive aphasia(Confirmed) Active Gastritis(Confirmed) Active History of CVA with residual Active deficit(Confirmed) Hyperlipidemia(Confirmed) Active Macromastia(Confirmed) Active Osteoporosis(Confirmed) Active Colon polyp(Confirmed) Active Osteoporosis, Active postmenopausal(Confirmed) Retinal detachment(Confirmed) Active Social History Social History Type Response Smoking Status Never (less than 100 in life time) entered on: 10/25/20 Sex
--- OUTSIDE RECORDS SUMMARY | 2022-03-24 13:47 | XMS_ITS | Continuity of Care Document ---
:1950 Author Organization [facility] Address [address] [place] [address]- Care Team Providers Name Role Phone Bunny Rhodes MD, Nikos Primary Care Physician [phone] Encounter [facility] Date(s): 06/20/21 - 07/20/21 [facility] [address] [place] [address] Allergies, Adverse Reactions, Alerts Substance Reaction [...] Poliovirus Vaccine, Inactivated 10/29/09 Given 1Result Comment: [facility]# [id number] Note: twinrix #33Admin Note: twiinrix #24Admin Note: [...]
--- OUTSIDE RECORDS SUMMARY | 2022-03-24 13:47 | XMS_ITS | Continuity of Care Document ---
:1950 Author Organization [facility] Address [address] [place] [address]- Care Team Providers Name Role Phone Bunny Rhodes MD, Nikos Primary Care Physician [phone] Encounter [facility] [place] Date(s): 08/13/21 - 09/12/21 [facility]ocrin[facility] Diabetes [address] [place] [address] Allergies, Adverse Reactions, Alerts Substance Reaction Severity [...] Poliovirus Vaccine, Inactivated 10/29/09 Given 1Result Comment: [facility]# [id number] Note: twinrix #33Admin Note: twiinrix #24Admin Note: TWINRIX #15Admin Note: menactra Medications aspirin 81 mg oral tablet, chewable 81 mg, By Mouth, Daily, Refills 0, Maintenance, 09/22/18 16:15:52 EDT Start Date: 09/22/18 Status: OrderedCalcium 500+D 1 tablet, 2 times [...] Maintenance, 04/27/17 11:08:52 Start Date: 04/27/17 Status: Ordered Problem List Condition Effective Dates [...]
--- OUTSIDE RECORDS SUMMARY | 2022-03-24 13:47 | XMS_ITS | Continuity of Care Document ---
:1950 Author Organization [facility] Address [address] [place] [address]- Care Team Providers Name Role Phone Bunny Rhodes MD, Nikos Primary Care Physician [phone] Encounter [facility] Date(s): 07/29/21 - 08/28/[address] [address] Allergies, Adverse Reactions, Alerts Substance Reaction [...] Poliovirus Vaccine, Inactivated 10/29/09 Given 1Result Comment: [facility]# [id number] Note: twinrix #33Admin Note: twiinrix #24Admin Note: [...]
--- OUTSIDE RECORDS SUMMARY | 2022-03-24 13:47 | XMS_ITS | Continuity of Care Document ---
:1950 Author Organization [facility] Address [address] [place] [address]- Care Team Providers Name Role Phone Bunny Rhodes MD, Nikos Primary Care Physician [phone] Encounter [facility] Date(s): 01/29/22 - 02/28/[address] [address]- Allergies, Adverse Reactions, Alerts Substance Reaction Severity Status Nuts Active Peanuts THROAT CLOSES,ITCHING Active statins Active Immunizations Given and Recorded Vaccine Date Status Refusal Reason influenza virus vaccine, inactivated 02/23/22 Recorded influenza virus vaccine, inactivated 02/05/21 Recorded influenza virus vaccine, inactivated 03/11/20 Recorded zoster vaccine, inactivated 09/02/21 Recorded zoster vaccine, inactivated 02/05/21 Recorded SARS-CoV-2 (COVID-19) mRNA-1273 vaccine 07/29/21 Recorded SARS-CoV-2 (COVID-19) mRNA-1273 vaccine 02/12/21 Recorded SARS-CoV-2 (COVID-19) mRNA-1273 vaccine 07/23/20 Recorded SARS-CoV-2 (COVID-19) mRNA-1273 vaccine 06/25/20 Recorded pneumococcal 23-valent vaccine1 01/20/21 Given Hepatitis A-Hepatitis B Vaccine2 06/25/10 Given Hepatitis A-Hepatitis B Vaccine3 11/28/09 Given Hepatitis A-Hepatitis B Vaccine4 10/29/09 Given Meningococcal Conjugate Vaccine5 11/28/09 Given Typhoid Vaccine, Inactivated 11/28/09 Given Yellow Fever Vaccine 10/29/09 Given Poliovirus Vaccine, Inactivated 10/29/09 Given 1Result Comment: [facility]# [id number] Note: twinrix #33Admin Note: twiinrix #24Admin Note: TWINRIX #15Admin Note: menactra Medications aspirin 81 mg oral tablet, chewable 81 mg, By Mouth, Daily, Refills 0, Maintenance, 09/22/18 16:15:52 EDT Start Date: 09/22/18 Status: Orderedatorvastatin 20 mg oral tablet 1 tablet = 20 mg, By Mouth, Daily, # 90 tablet, 3 Refills, Maintenance, 01/19/22 9:25:00 EDT, Tablet, Partial fill upon patient request if the prescription is for a schedule II opioid drug., 155, cm, 01/19/22 9:22:00 EDT, Height, 51.8, kg, 10/23/21 15... Start Date: 01/19/22 Stop Date: 01/14/23 Status: OrderedBoostrix (Tdap) intramuscular suspension 0.5 mL, Intramuscular, Once, # 5 mL, 0 Refills, Soft Stop, 01/19/22 9:30:00 EDT, Suspension, Partialfill upon patient request if the prescription is for a schedule II opioid drug. Start Date: 01/19/22 Status: OrderedCalcium 500+D 1 tablet, 2 times a day, 0 Refills, Maintenance, 07/16/16 14:50:55 Start Date: 07/16/16 Status: Ordered Problem List Condition Confirmation Course Effective Dates Status Health I nformant Status Constipation Confirmed Active Duodenitis Confirmed Active Expressive aphasia Confirmed Active Gastritis Confirmed Active History of CVA with Confirmed Active residual deficit Hyperlipidemia Confirmed Active Macromastia Confirmed Active Osteoporosis Confirmed Active Colon polyp Confirmed Active Osteoporosis, Confirmed Active postmenopausal Retinal detachment Confirmed Active Social History Social History Type Response Smoking Status Never (less than 100 in life time) entered on: 10/25/20 Sex Female Patient Care team information Care Team PersonnelName: Gayle Erickson RN Position: [facility] RN Member Role: Primary Care Nurse Name: Nikos Dinh MD Position: [facility] Primary Care Physician Member Role: PCP Address: Address: [address] [place] [address]- Name: Marlene Roman RN Position: S RN Member Role: Primary Care Nurse Name: Ashley Palacio RN Position: S RN Member Role: Primary Care Nurse Care Team Related PersonsName: LYNETTE LUCAS Name: NICOLLE CAMPOS Address: home [address] [place] [address] Name: BONITA GRAHAM
--- OUTSIDE RECORDS SUMMARY | 2022-03-24 13:47 | XMS_ITS | Continuity of Care Document ---
:1950 Author Organization [facility] Address [address] [place] [address]- Care Team Providers Name Role Phone Bunny Rhodes MD, Nikos Primary Care Physician [phone] Encounter [facility] Date(s): 06/27/21 - 07/27/[address] [address]- Allergies, Adverse Reactions, Alerts Substance Reaction Severity [...] Poliovirus Vaccine, Inactivated 10/29/09 Given 1Result Comment: [facility]# [id number] Note: twinrix #33Admin Note: twiinrix #24Admin Note: [...]
--- OUTSIDE RECORDS SUMMARY | 2022-03-24 13:47 | XMS_ITS | Continuity of Care Document ---
:1950 Author Organization [facility] Address [address] [place] [address]- Care Team Providers Name Role Phone Preston Odom MD Primary Care Physician [place] [facility] [place](s): 06/12/20 - 07/12/20 [facility] Endocrinology and Diabetes [address] [place] [address] Allergies, Adverse Reactions, Alerts Substance Reaction Severity [...]
--- OUTSIDE RECORDS SUMMARY | 2022-03-24 13:47 | XMS_ITS | Continuity of Care Document ---
:1950 Author Organization [facility] Address [address] [place] [address]- Care Team Providers Name Role Phone Bunny Rhodes MD, Nikos Primary Care Physician [phone] Encounter [facility] Date(s): 05/28/21 - 06/27/[address] [address]- Allergies, Adverse Reactions, Alerts Substance Reaction Severity Status Peanuts THROAT CLOSES,ITCHING Active Immunizations Given and Recorded Vaccine Date [...] Poliovirus Vaccine, Inactivated 10/29/09 Given 1Result Comment: [facility]# [id number] Note: twinrix #33Admin Note: twiinrix #24Admin Note: TWINRIX #15Admin Note: menactra Medications aspirin 81 mg oral tablet, chewable 81 mg, By Mouth, Daily, Refills 0, Maintenance, 09/22/18 16:15:52 EDT Start Date: 09/22/18 Status: OrderedClaritin 24 Hour Allergy = 10 mg, By Mouth, Daily, 0 Refills, Maintenance, 09/20/18 8:57:35 EDT Start Date: 09/20/18 Status: Ordered Problem List Condition Effective Dates Status Health Status Informant Constipation(Confirmed) Active Expressive aphasia(Confirmed) Active History of CVA with residual Active deficit(Confirmed) Hyperlipidemia(Confirmed) Active Macromastia(Confirmed) Active Osteoporosis(Confirmed) Active Retinal detachment(Confirmed) Active Social History Social History Type Response Smoking Status Never (less than 100 in life time) entered on: 10/25/20 Sex
--- OUTSIDE RECORDS SUMMARY | 2022-03-24 13:47 | XMS_ITS | Continuity of Care Document ---
:1950 Author Organization [facility] Address [address] [place] [address]- Care Team Providers Name Role Phone Bunny Rhodes MD, Nikos Primary Care Physician Encounter [facility] Date(s): 01/20/22 - 02/19/22 [facility] Endocrinology and Diabetes [address] [place] [address] Attending Physician: Arlette Garcia Admitting Physician: AdmArlette rose Referring Physician: AdmtrArlette Allergies, Adverse Reactions, Alerts Substance Reaction Severity Status Nuts Active Peanuts THROAT CLOSES,ITCHING Active statins Active Immunizations Given and Recorded Vaccine Date Status Refusal Reason zoster vaccine, inactivated 09/02/21 Recorded zoster vaccine, inactivated 02/05/21 Recorded SARS-CoV-2 (COVID-19) mRNA-1273 vaccine 07/29/21 Recorded SARS-CoV-2 (COVID-19) mRNA-1273 vaccine 02/12/21 Recorded SARS-CoV-2 (COVID-19) mRNA-1273 vaccine 07/23/20 Recorded SARS-CoV-2 (COVID-19) mRNA-1273 vaccine 06/25/20 Recorded influenza virus vaccine, inactivated 02/05/21 Recorded influenza virus vaccine, inactivated 03/11/20 Recorded pneumococcal 23-valent vaccine1 01/20/21 Given Hepatitis A-Hepatitis B Vaccine2 06/25/10 Given Hepatitis A-Hepatitis B Vaccine3 11/28/09 Given Hepatitis A-Hepatitis B Vaccine4 10/29/09 Given Meningococcal Conjugate Vaccine5 11/28/09 Given Typhoid Vaccine, Inactivated 11/28/09 Given Yellow Fever Vaccine 10/29/09 Given Poliovirus Vaccine, Inactivated 10/29/09 Given 1Result Comment: [facility]# [id number] Note: twinrix #33Admin Note: twiinrix #24Admin Note: [...] 10/25/20 Sex Female Patient Care team information PersonnelName: Nikos Dinh MD Address: Address: [address] [place] [address]
--- OUTSIDE RECORDS SUMMARY | 2022-03-24 13:47 | XMS_ITS | Continuity of Care Document ---
:1950 Author Organization [facility] Address [address] [place] [address]- Care Team Providers Name Role Phone Bunny Rhodes MD, Nikos Primary Care Physician [phone] Encounter [facility] Date(s): 04/29/21 - 05/29/[address] [address] Allergies, Adverse Reactions, Alerts Substance Reaction Severity Status Peanuts THROAT CLOSES,ITCHING Active Immunizations Given and Recorded Vaccine Date Status Refusal Reason pneumococcal 23-valent vaccine1 01/20/21 Given SARS-CoV-2 (COVID-19) mRNA-1273 vaccine 07/23/20 Recorded SARS-CoV-2 (COVID-19) mRNA-1273 vaccine 06/25/20 Recorded influenza virus vaccine, inactivated 03/11/20 Recorded Hepatitis A-Hepatitis B Vaccine2 06/25/10 Given Hepatitis A-Hepatitis B Vaccine3 11/28/09 Given Hepatitis A-Hepatitis B Vaccine4 10/29/09 Given Meningococcal Conjugate Vaccine5 11/28/09 Given Typhoid Vaccine, Inactivated 11/28/09 Given Yellow Fever Vaccine 10/29/09 Given Poliovirus Vaccine, Inactivated 10/29/09 Given 1Result Comment: [facility]# [id number] Note: twinrix #33Admin Note: twiinrix #24Admin Note: [...]
--- OUTSIDE RECORDS SUMMARY | 2022-03-24 13:47 | XMS_ITS | Continuity of Care Document ---
:1950 Author Organization [facility] Address [address] [place] [address]- Care Team Providers Name Role Phone Bunny Rhodes MD, Nikos Primary Care Physician [phone] Encounter [facility] Date(s): 04/15/21 - 05/15/[address] [address]- Allergies, Adverse Reactions, Alerts Substance Reaction Severity [...] Inactivated 10/29/09 Given 1Result Comment: [facility]# [id number] Note: twinrix #33Admin Note: twiinrix #24Admin Note: TWINRIX #15Admin Note: menactra Medications aspirin 81 mg oral tablet, chewable 81 mg, By Mouth, Daily, Refills 0, Maintenance, 09/22/18 16:15:52 EDT Start Date: 09/22/18 Status: OrderedClaritin 24 Hour Allergy = 10 mg, By Mouth, Daily, 0 Refills, Maintenance, 09/20/18 8:57:35 EDT Start Date: 09/20/18 Status: Ordered Problem List Condition Effective Dates Status Health Status Informant Expressive aphasia(Confirmed) Active History of CVA with residual Active deficit(Confirmed) Hyperlipidemia(Confirmed) Active Macromastia(Confirmed) Active Osteoporosis(Confirmed) Active Retinal detachment(Confirmed) Active Social History Social History Type Response Smoking Status Never (less than 100 in life time) entered on: 10/25/20 Sex
--- OUTSIDE RECORDS SUMMARY | 2022-03-24 13:47 | XMS_ITS | Continuity of Care Document ---
:1950 Author Organization [facility] Address [address] [place] [address]- Care Team Providers Name Role Phone Bunny Rhodes MD, Nikos Primary Care Physician Encounter [facility] Date(s): 06/25/21 - 07/25/21 [facility] Endocrinology and Diabetes [address] [place] [address] Allergies, Adverse Reactions, Alerts [...] Given 1Result Comment: [facility]# [id number] Note: twinrix #33Admin Note: twiinrix #24Admin Note: [...]
--- OUTSIDE RECORDS SUMMARY | 2022-03-24 13:47 | XMS_ITS | Continuity of Care Document ---
:1950 Author Organization [facility] Address [address] [place] [address]- Care Team Providers Name Role Phone Bunny Rhodes MD, Nikos Primary Care Physician Encounter [facility] Date(s): 08/08/21 - 09/07/[address] [address] Allergies, Adverse Reactions, Alerts Substance Reaction [...] Poliovirus Vaccine, Inactivated 10/29/09 Given 1Result Comment: [facility]# [id number] Note: twinrix #33Admin Note: twiinrix #24Admin Note: [...]
--- OUTSIDE RECORDS SUMMARY | 2022-03-24 13:47 | XMS_ITS | Continuity of Care Document ---
:1950 Author Organization [facility] Address [address] [place] [address]- Care Team Providers Name Role Phone Bunny Rhodes MD, Nikos Primary Care Physician Encounter [facility] Date(s): 02/13/21 - 03/15/21 [facility] [address] [place], [place] [address] Allergies, Adverse Reactions, Alerts Substance Reaction [...] Poliovirus Vaccine, Inactivated 10/29/09 Given 1Result Comment: [facility]# [id number] Note: twinrix #33Admin Note: twiinrix #24Admin Note: [...]
--- OUTSIDE RECORDS SUMMARY | 2022-03-24 13:47 | XMS_ITS | Continuity of Care Document ---
:1950 Author Organization [facility] Address [address] [place] [address]- Care Team Providers Name Role Phone Carlos Reynoso MD, Sierra Primary Care Physician Encounter [facility] Date(s): 09/30/20 - 09/30/[address] [address]- Discharge Disposition: A-D/C Home Attending Physician: Ron Alcantara MD Admitting Physician: Ron Alcantara MD Referring Physician: Ron Alcantara MD Allergies, Adverse Reactions, Alerts Substance Reaction Severity [...] Status Health Status Informant Osteoporosis, Active postmenopausal(Confirmed) Vital Signs Most recent to oldest 1 2 3 [Reference Range]: Weight 51.5 kg (09/30/20 7:35 AM) Oxygen Saturation [94-100 %] 98 % 100 % 98 % (09/30/20 9:45 AM) (09/30/20 9:30 AM) (09/30/20 9:1 5 AM) Pulse Rate [55-90 bpm] 66 bpm (09/30/20 7:35 AM) Blood Pressure [90-138/55-84 mm 132/76 mm Hg 133/69 mm Hg 133/76 mm Hg Hg] (09/30/20 9:45 AM) (09/30/20 9:30 AM) (09/30/20 9:1 7 AM) Respiratory Rate [16-30 br/min] 18 br/min 21 br/min 19 br/min (09/30/20 9:45 AM) (09/30/20 9:30 AM) (09/30/20 9:1 5 AM) Temperature [96.8-100.4 DegF] 96.6 DegF 98.4 DegF *L* (09/30/20 7:35 AM) (09/30/20 8:45 AM) Liters per Minute 5 L/min 5 L/min (09/30/20 9:00 AM) (09/30/20 8:45 AM) Mode of Delivery (Oxygen) Room air Room air Room a ir (09/30/20 9:45 AM) (09/30/20 9:30 AM) (09/30/20 9:1 5 AM) Blood pressure sites Arm, left (09/30/20 7:35 AM) Temperature Route Temporal Temporal (09/30/20 8:45 AM) (09/30/20 7:35 AM)
--- OUTSIDE RECORDS SUMMARY | 2022-03-24 13:48 | XMS_ITS | Continuity of Care Document ---
:1950 Author Organization [facility] Address [address] [place] [address]- Care Team Providers Name Role Phone Bunny Rhodes MD, Nikos Primary Care Physician Encounter [facility] Date(s): 08/18/21 - 09/17/21 [facility] [address] [place] [id number] Allergies, Adverse Reactions, Alerts Substance Reaction [...] Poliovirus Vaccine, Inactivated 10/29/09 Given 1Result Comment: [facility]# [id number] Note: twinrix #33Admin Note: twiinrix #24Admin Note: [...]
--- OUTSIDE RECORDS SUMMARY | 2022-03-24 13:48 | XMS_ITS | Continuity of Care Document ---
:1950 Author Organization [facility] Address [address] [place] [address]- Care Team Providers Name Role Phone Bunny Rhodes MD, Nikos Primary Care Physician [phone] Encounter [facility] Date(s): 06/01/21 - 07/01/[address] [address]- Allergies, Adverse Reactions, Alerts Substance Reaction Severity [...] 10/29/09 Given 1Result Comment: [facility]# [id number] Note: twinrix #33Admin Note: twiinrix #24Admin Note: [...] Macromastia(Confirmed) Active Osteoporosis(Confirmed) Active Colon polyp(Confirmed) Active Retinal detachment(Confirmed) Active Social History Social History Type Response Smoking Status Never (less than 100 in life time) entered on: 10/25/20 Sex
--- OUTSIDE RECORDS SUMMARY | 2022-03-24 13:48 | XMS_ITS | Continuity of Care Document ---
:1950 Author Organization [facility] Address [address] [place] [address]- Care Team Providers Name Role Phone Bunny Rhodes MD, Nikos Primary Care Physician [phone] Encounter [facility] Date(s): 06/27/21 - 07/27/21 [facility] Diabetes [address] [place] [id number] Allergies, Adverse Reactions, Alerts [...] Vaccine, Inactivated 10/29/09 Given 1Result Comment: [facility]# [id number] Note: twinrix #33Admin Note: twiinrix #24Admin Note: [...]
--- OUTSIDE RECORDS SUMMARY | 2022-03-24 13:48 | XMS_ITS | Continuity of Care Document ---
:1950 Author Organization [facility] Address [address] [place] [address]- Care Team Providers Name Role Phone Bunny Rhodes MD, Nikos Primary Care Physician Encounter [facility] Date(s): 06/25/21 - 07/25/21 [facility]ology [facility] Diabetes [address] [place] [id number] Allergies, Adverse Reactions, Alerts Substance Reaction [...] Poliovirus Vaccine, Inactivated 10/29/09 Given 1Result Comment: [facility]# [id number] Note: twinrix #33Admin Note: twiinrix #24Admin Note: [...]
--- OUTSIDE RECORDS SUMMARY | 2022-03-24 13:48 | XMS_ITS | Continuity of Care Document ---
:1950 Author Organization [facility] Address [address] [place] [address]- Care Team Providers Name Role Phone Bunny Rhodes MD, Nikos Primary Care Physician [phone] Encounter [facility] Date(s): 05/16/21 - 06/15/[address] [address]- Allergies, Adverse Reactions, Alerts Substance Reaction Severity [...] Vaccine, Inactivated 10/29/09 Given 1Result Comment: [facility]# [id number] Note: twinrix #33Admin Note: twiinrix #24Admin Note: [...]
--- OUTSIDE RECORDS SUMMARY | 2022-03-24 13:48 | XMS_ITS | Continuity of Care Document ---
:1950 Author Organization [facility] Address [address] [place] [address]- Care Team Providers Name Role Phone Bunny Rhodes MD, Nikos Primary Care Physician [phone] Encounter [facility] Date(s): 09/03/21 - 10/03/21 [facility] Diabetes [address] [place] [address] Allergies, Adverse Reactions, Alerts Substance Reaction [...] Poliovirus Vaccine, Inactivated 10/29/09 Given 1Result Comment: [facility]# [id number] Note: twinrix #33Admin Note: twiinrix #24Admin Note: [...]
--- OUTSIDE RECORDS SUMMARY | 2022-03-24 13:48 | XMS_ITS | Continuity of Care Document ---
:1950 Author Organization [facility] Address [address] [place] [address]- Care Team Providers Name Role Phone Bunny Rhodes MD, Nikos Primary Care Physician [phone] Encounter [facility] Date(s): 01/20/21 - 02/19/21 [facility] [address] [place] [address]- Attending Physician: AdmArlette rose Admitting Physician: Admtr, Arlette Referring Physician: Admtr, Ar8 Allergies, Adverse Reactions, Alerts Substance Reaction Severity [...] Given 1Result Comment: [facility]# [id number] Note: twinrix #33Admin Note: twiinrix #24Admin Note: [...]
--- OUTSIDE RECORDS SUMMARY | 2022-03-24 13:48 | XMS_ITS | Continuity of Care Document ---
:1950 Author Organization [facility] Address [address] [place] [address]- Care Team Providers Name Role Phone Bunny Rhodes MD, Nikos Primary Care Physician Encounter [facility] Date(s): 06/06/21 - 07/06/[address] [address]- Allergies, Adverse Reactions, Alerts Substance Reaction Severity [...] Poliovirus Vaccine, Inactivated 10/29/09 Given 1Result Comment: [facility]# [id number] Note: twinrix #33Admin Note: twiinrix #24Admin Note: [...]
--- OUTSIDE RECORDS SUMMARY | 2022-03-24 13:48 | XMS_ITS | Continuity of Care Document ---
:1950 Author Organization [facility] Address [address] [place] [address]- Care Team Providers Name Role Phone Bunny Rhodes MD, Nikos Primary Care Physician [phone] Encounter [facility] Date(s): 07/01/21 - 07/31/[address] [address]- Allergies, Adverse Reactions, Alerts Substance Reaction Severity [...] Poliovirus Vaccine, Inactivated 10/29/09 Given 1Result Comment: [facility]# [id number] Note: twinrix #33Admin Note: twiinrix #24Admin Note: [...]
--- OUTSIDE RECORDS SUMMARY | 2022-03-24 13:48 | XMS_ITS | Continuity of Care Document ---
:1950 Author Organization [facility] Address [address] [place] [address]- Care Team Providers Name Role Phone Bunny Rhodes MD, Nikos Primary Care Physician Encounter [facility] Date(s): 05/22/21 - 06/21/[address] [address]- Allergies, Adverse Reactions, Alerts Substance Reaction Severity [...] Poliovirus Vaccine, Inactivated 10/29/09 Given 1Result Comment: [facility]# [id number] Note: twinrix #33Admin Note: twiinrix #24Admin Note: [...]
--- OUTSIDE RECORDS SUMMARY | 2022-03-24 13:48 | XMS_ITS | Continuity of Care Document ---
:1950 Author Organization [facility] Address [address] [place] [address]- Care Team Providers Name Role Phone Preston Odom MD Primary Care Physician Encounter [facility] Date(s): 06/07/19 - 06/07/[address] [address] [facility] Attending Physician: Brianne Finch MD Allergies, Adverse Reactions, Alerts Substance Reaction [...]
--- OUTSIDE RECORDS SUMMARY | 2022-03-24 13:48 | XMS_ITS | Continuity of Care Document ---
:1950 Author Organization [facility] Address [address] [place] [address]- Care Team Providers Name Role Phone Bunny Rhodes MD, Nikos Primary Care Physician [phone] Encounter [facility] Date(s): 08/11/21 - 09/10/21 [facility]ology [facility] Diabetes [address] [place] [address] Allergies, Adverse Reactions, Alerts Substance [...] 10/29/09 Given 1Result Comment: [facility]# [id number] Note: twinrix #33Admin Note: twiinrix #24Admin Note: [...]
--- OUTSIDE RECORDS SUMMARY | 2022-03-24 13:48 | XMS_ITS | Continuity of Care Document ---
:1950 Author Organization [facility] Address [address] [place] [address]- Care Team Providers Name Role Phone Bunny Rhodes MD, Nikos Primary Care Physician Encounter [facility] Date(s): 05/06/21 - 06/05/[address] [address]- Allergies, Adverse Reactions, Alerts Substance Reaction Severity [...] 10/29/09 Given 1Result Comment: [facility]# [id number] Note: twinrix #33Admin Note: twiinrix #24Admin Note: [...]
--- OUTSIDE RECORDS SUMMARY | 2022-03-24 13:48 | XMS_ITS | Continuity of Care Document ---
:1950 Author Organization [facility] Address [address] [place] [address]- Care Team Providers Name Role Phone Nikos Dinh MD Primary Care Physician [phone] [facility] Date(s): 04/28/21 - 06/29/[address] [address]- Attending Physician: Nikos Dinh MD Allergies, Adverse Reactions, Alerts Substance Reaction [...] Poliovirus Vaccine, Inactivated 10/29/09 Given 1Result Comment: [facility]# [id number] Note: twinrix #33Admin Note: twiinrix #24Admin Note: [...]
--- OUTSIDE RECORDS SUMMARY | 2022-03-24 13:48 | XMS_ITS | Continuity of Care Document ---
:1950 Author Organization [facility] Address [address] [place] [address]- Care Team Providers Name Role Phone Bunny Rhodes MD, Nikos Primary Care Physician Encounter [facility] Date(s): 06/18/21 - 07/18/[address] [address]- Allergies, Adverse Reactions, Alerts Substance Reaction Severity [...] Vaccine, Inactivated 10/29/09 Given 1Result Comment: [facility]# [id number] Note: twinrix #33Admin Note: twiinrix #24Admin Note: [...]
--- OUTSIDE RECORDS SUMMARY | 2022-03-24 13:48 | XMS_ITS | Continuity of Care Document ---
:1950 Author Organization [facility] Address [address] [place] [address]- Care Team Providers Name Role Phone Bunny Rhoeds MD, Nikos Primary Care Physician Encounter [facility] Date(s): 10/23/21 - 11/22/[address] [address]- Allergies, Adverse Reactions, Alerts Substance Reaction Severity [...] Poliovirus Vaccine, Inactivated 10/29/09 Given 1Result Comment: [facility]# [id number] Note: twinrix #33Admin Note: twiinrix #24Admin Note: [...] Maintenance, 04/27/17 11:10:34 Start Date: 04/27/17 Status: OrderedLidocaine-Nifedipine topical Lidocaine-Nifedipine topical, See Instructions, # 15 Gm, Refills 0, Tot. Refills 0, Maintenance, 0.5% Lidocaine applied topically to anus 3-4 times/day, 10/23/21 17:17:00 EDT, Supply, 155, cm, 10/23/2214:22:00 EDT, Height, 51.8, kg, 10/23/21 15:22:00... Start Date: 10/23/21 Status: Orderedmagnesium citrate - oral tablet 0 [...]
--- OUTSIDE RECORDS SUMMARY | 2022-03-24 13:48 | XMS_ITS | Continuity of Care Document ---
:1950 Author Organization [facility] Endocrinology and [facility] Address [address] [place] [address]- Care Team Providers Name Role Phone Preston Odom MD Primary Care Physician [place] [facility] [place](s[place] 06/11/20 - 07/11/20 [facility] [address] [place] [address] Attending Physician: Arlette Garcia Admitting Physician: AdmArlette rose Referring Physician: Admtr, Ar8 Allergies, Adverse Reactions, [...]
--- OUTSIDE RECORDS SUMMARY | 2022-03-24 13:48 | XMS_ITS | Continuity of Care Document ---
:1950 Author Organization [facility] Address [address] [place] [address]- Care Team Providers Name Role Phone Nikos Dinh MD Primary Care Physician [phone] Encounter [facility] Date(s): 04/29/21 - 06/12/21 [facility] [place] [address] [place] [address]- Attending Physician: Lázaro Marshall MD Referring Physician: Nikos Dinh MD Allergies, Adverse Reactions, [...] Poliovirus Vaccine, Inactivated 10/29/09 Given 1Result Comment: [facility]# [id number] Note: twinrix #33Admin Note: twiinrix #24Admin Note: [...]
--- OUTSIDE RECORDS SUMMARY | 2022-03-24 13:48 | XMS_ITS | Continuity of Care Document ---
:1950 Author Organization [facility] Address [address] [place] [address]- Care Team Providers Name Role Phone Bunny Rhodes MD, Nikos Primary Care Physician [phone] Encounter [facility] Date(s): 05/28/21 - 06/27/[address] [address]- Allergies, Adverse Reactions, Alerts Substance Reaction Severity [...] Poliovirus Vaccine, Inactivated 10/29/09 Given 1Result Comment: [facility]# [id number] Note: twinrix #33Admin Note: twiinrix #24Admin Note: [...]
--- OUTSIDE RECORDS SUMMARY | 2022-03-24 13:48 | XMS_ITS | Continuity of Care Document ---
:1950 Author Organization [facility] Address [address] [place] [address]- Care Team Providers Name Role Phone Michael QUIROZ, Frank Primary Care Physician Encounter [facility] Date(s): 06/06/19 - 06/16/19 [facility] Endocrinology and Diabetes [address] [place] [address] [facility] Attending Physician: Arlette Garcia Admitting Physician: Arlette Garcia Referring Physician: AdmArlette rose Allergies, Adverse Reactions, Alerts Substance Reaction Severity [...]
--- OUTSIDE RECORDS SUMMARY | 2022-03-24 13:48 | XMS_ITS | Continuity of Care Document ---
:1950 Author Organization [facility] Address [address] [place] [address]- Care Team Providers Name Role Phone Michael QUIROZ, Frank Primary Care Physician En[place] [facility] Date(s): 01/11/20 - 02/10/20 [facility] Endocrinology and Diabetes [address] [place] [address] [facility] Allergies, Adverse Reactions, Alerts Substance Reaction Severity [...]
--- OUTSIDE RECORDS SUMMARY | 2022-03-24 13:48 | XMS_ITS | Continuity of Care Document ---
:1950 Author Organization [facility] Address [address] [place] [address]- Care Team Providers Name Role Phone Bunny Rhodes MD, Nikos Primary Care Physician [phone] Encounter [facility] Date(s): 02/07/21 - 03/09/21 [facility] [address] [place], [place] [address] Allergies, Adverse Reactions, Alerts Substance Reaction Severity [...] Poliovirus Vaccine, Inactivated 10/29/09 Given 1Result Comment: [facility]# [id number] Note: twinrix #33Admin Note: twiinrix #24Admin Note: [...]
--- OUTSIDE RECORDS SUMMARY | 2022-03-24 13:48 | XMS_ITS | Continuity of Care Document ---
:1950 Author Organization [facility] Address [address] [place] [address]- Care Team Providers Name Role Phone Bunny Rhodes MD, Nikos Primary Care Physician [phone] Encounter [facility] Date(s): 05/13/21 - 06/12/21 [facility] [address] [place], [place] [address] Attending Physician: Arlette Garcia Admitting Physician: Admtr, Arlette Referring Physician: Admtr, [...] Poliovirus Vaccine, Inactivated 10/29/09 Given 1Result Comment: [facility]# [id number] Note: twinrix #33Admin Note: twiinrix #24Admin Note: [...]
[2022-03-24 14:33] LABS: MANUAL DIFF FLAG NO
[2022-03-24 14:35] LABS: Basophils Percent Auto 0.5 % (0-2); Eosinophils Percent Auto 0.2 % (0-4); Hematocrit 44.1 % (37.0-47.0); Hemoglobin 13.9 g/dl (12.0-16.0); Imm Gran Abs Auto 0.01 X10*3/uL (0.00-0.03); Imm Gran Pct Auto 0.2 % (0.0-0.4); Lymphocytes Absolute Auto 0.9 X10*3/uL (1.2-4.9); Lymphocytes Percent Auto 21.2 % (20-40); Mean Corpuscular HGB Conc 31.5 g/dl (31.0-35.0); Mean Corpuscular Hemoglobin 22.5 pg (27.0-33.0); Mean Corpuscular Volume 71.5 fL (80.0-98.0); Monocytes Absolute Auto 0.3 X10*3/uL (0.1-1.2); Monocytes Percent Auto 5.9 % (2-11); Neutrophils Absolute Auto 3.1 x10*3/uL (2.0-8.3); Platelet Count 250 X10*3/uL (160-400); Red Blood Count 6.17 X10*6/uL (4.20-5.50); Red Cell Distribution Width 15.9 % (11.0-16.0); White Blood Count 4.2 X10*3/uL (4.8-10.8)
[2022-03-24 14:41] LABS: INTERNATIONAL NORM RATIO 1.1 (0.9-1.1); Prothrombin Time 13.2 SEC (10.0-13.1)
[2022-03-24 14:50] LABS: Alanine Aminotransferase 26 U/L (0-31); Alkaline Phosphatase 68 U/L (39-117); Anion Gap 10 (12-20); Aspartate Amino Transferase 21 U/L (5-31); Bilirubin Total 0.8 mg/dL (0.0-1.0); Blood Urea Nitrogen 10 mg/dL (9-16); Calcium 9.2 mg/dL (8.4-10.2); Carbon Dioxide 26 mmol/L (22-29); Chloride 111 mmol/L (96-108); Creatinine Clr Calc Pharmacy 48.5; Estimated Glomerular Filt Rate > 60; Glucose Random 99 mg/dL (60-115); Sodium 143 mmol/L (135-145); Total Protein 6.6 g/dL (6.5-8.0)
[2022-03-24 15:02] LABS: Troponin-I High Sensitivity < 3.5 ng/L (<3.5-17.0)
--- NOTE | 2022-03-24 16:36 | PC.NURSE ---
pt is refusing her Reglan and Benadryl now as she doesn't have a headache now. urine and Sars were just sent down.
--- NOTE | 2022-03-24 16:37 | ED_ITS ---
HPI - Dizziness General Chief Complaint: Dizziness Stated Complaint: Stroke symptoms Time Seen by Provider: 03/24/22 13:51 Source: patient, RN notes reviewed and old records reviewed History of Present Illness HPI Narrative: 71-year-old female presents with dizziness, headache, possible dysarthria a while in the speech therapy clinic. The patient states that she noted earlier today that she was having some headache and went to the speech therapy clinic today. It was noted by staff that she was having some difficulty with word finding. The patient has a stroke history in the past, and is typically somewhat dysarthric at times. Patient does not believe that her speech difficulty is any worse than normal, but she is complaining of headache with some dizziness. MD elicited complaint: dizziness Pertinent past history: stroke Onset (ago): hour(s) Timing: gradual onset Severity: moderate Description: sense of movement, room spinning and lightheadedness Related Data Home Medications Medication Instructions Recorded Confirmed ascorbic acid (vitamin C) 100 mg 100 mg PO DAILY 02/16/20 05/08/21 chewable tablet cholecalciferol (vitamin D3) 50 50 mcg PO DAILY 02/16/20 05/08/21 mcg (2,000 unit) capsule Previous Rx's Medication Instructions Recorded methylcellulose (laxative) 500 mg 500 mg PO BID #60 tabs 05/08/21 tablet (Citrucel) polyethylene glycol 3350 17 gram 17 g PO DAILY #30 ea 05/08/21 oral powder packet (Miralax) aspirin 81 mg tablet,delayed 81 mg PO DAILY #90 tabs 12/06/21 release atorvastatin 20 mg tablet 20 mg PO DAILY 90 days #90 tabs 12/13/21 Allergies Allergy/AdvReac Type Severity Reaction Status Date / Time peanut [PEANUT] Allergy Severe ANAPHYLAXIS Verified 08/06/21 11:53 Review of Systems Review of Systems: Constitutional: Denies fever(s), chills Eyes: Denies diplopia and Denies loss of vision ENT: Denies neck pain and Denies sore throat Cardiovascular: Denies palpitations and Denies dyspnea Respiratory: Denies cough, wheezing or SOB Gastrointestinal: Denies abdominal pain, diarrhea and nausea Musculoskeletal: Denies back pain and numbness Integumentary Denies non-healing lesions, rash Neurologic: Denies loss of vision, numbness and weakness Endocrine: denies weight loss, fatigue Psych: denies depression, anxiety Neurologic: Denies Abnormal speech present and Denies Sensory deficit (Neuro) [facility] Past Medical History Medical History Aphasia Dyslipidemia Epistaxis Osteoporosis Physical exam Pre-op evaluation Surgical History H/O bilateral breast reduction surgery History of esophagogastroduodenoscopy (EGD) Hx of colonoscopy Family History Family History Father CVD (cardiovascular disease) Mother Cancer Daughter No problems noted. Social History Social History Housing: Apartment Alcohol intake: never Patient Tobacco Use Status: Never used Tobacco Smoked in Last 30 Days: No e-Cigarette/Vaping Use: Never Used Second Hand Smoke Exposure: No Use of substances other than those prescribed or required for medical reasons: No Advance Directives: Yes Advance Directives Information Provided: Yes Advance Directives on File: No service: No Current occupational status: unemployed and disabled Physical Exam Vital Signs: Vital Signs: Last Vital Signs Temp 97.5 F 03/24/22 13:24 Pulse 69 03/24/22 13:24 Resp 14 03/24/22 13:24 BP 143/84 H 03/24/22 13:24 Pulse Ox 97 03/24/22 13:24 O2 Del Method 03/24/22 13:24 BMI result Body Mass Index 21.5 Vital signs as above, all normal with some mild systolic hypertension Const: General: cooperative, no acute distress, alert, awake and Physically active; No acute distress Orientation/consciousness: patient oriented x3 HEENT: Head: Yes normal to inspection, Yes normocephalic and Yes atraumatic Ears: external ears normal General nose exam: Normal external nose present Face and sinus: Yes normal facial exam Mouth: Normal oral and palatal mucosa present Eyes: Sclerae: sclerae normal Corneas: corneas normal Pupils: Equal, round and reactive pupils present EOM: EOMs intact bilaterally Neck: Neck: Yes normal visual inspection, Yes full ROM and Yes no meningeal signs Chest: Chest palpation & inspection: normal inspection of the chest Resp: Effort & Inspection: normal respiratory effort, no cough and no grunting Auscultation: clear to auscultation bilaterally Cardio: Rate: regular rate Rhythm: regular rhythm GI: Inspection: No distended Back/Spine/Pelvis: Cervical Spine: normal cervical lordosis and cervical ROM normal Skin: General skin exam: no rashes or lesions noted and no jaundice Neuro: General: patient oriented x3, gait normal, moves all extremities and no meningeal signs Cranial nerves: Yes CN's II-XII intact bilaterally and Yes Equal, round and reactive pupils present Cognition (Neuro): normal cognition Speech: No Abnormal speech present Gait exam (Neuro): Normal gait present Motor exam (neuro): 5/5 motor strength present throughout Sensory Exam: No Sensory deficit (Neuro) Deep tendon reflexes (DTR's): Rt Biceps (C5, C6): 2+, Left biceps reflex intensity grade: 2+ and Right patellar reflex intensity grade: 2+ Medications Administered Discontinued Medications Generic Name Dose Route Start Last Admin Trade Name Freq PRN Reason Stop Dose Admin Metoclopramide HCl 10 mg 03/24/22 15:20 03/24/22 16:35 Metoclopramide Hcl 10 Mg/2 Ml Vial IVPUSH 03/24/22 15:21 Not Given ONCE ONE Medical Decision Making Medical Decision Making MDM Narrative: 71-year-old female with a past medical history of CVA presents with a headache and dizziness. Laboratory studies were obtained which did not show any significant abnormalities. EKG shows a normal sinus rhythm at 62, with normal axis, normal intervals and normal ST segments. CT scan of the head was performed which does not show any abnormalities (the patient did refuse IV contrast) The patient was given IV Benadryl and IV Reglan for headache. She will be re- evaluated afterwards to determine efficacy. Discharge Plan Discharge Clinical Impression: Headache, Dizziness Patient Disposition: Still a Patient Instructions: Acute Headache (ED), Dizziness (ED) Prescriptions: No Action aspirin 81 mg tablet,delayed release (DR/EC) 81 mg PO DAILY Qty: 90 3RF atorvastatin 20 mg tablet 20 mg PO DAILY 90 Days Qty: 90 1RF cholecalciferol (vitamin D3) 50 mcg (2,000 unit) capsule 50 mcg PO DAILY ascorbic acid (vitamin C) 100 mg tablet,chewable 100 mg PO DAILY polyethylene glycol 3350 [Miralax] 17 gram powder in packet 17 g PO DAILY Qty: 30 5RF Citrucel 500 mg tablet 500 mg PO BID Qty: 60 5RF
--- NOTE | 2022-03-24 16:55 | PC.NURSE ---
pt does not want to wait for urine and SARS results and wants to be discharged. 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
[2022-03-24 16:59] LABS: Appearance Urine Clear; Color Urine Yellow; Glucose Urine UA Negative (Negative); Leukocyte Esterase Urine Negative (Negative); Nitrite Urine Negative (Negative); Urine Blood Negative (Negative); Urine Ketones 15 mg/dL (Negative); Urine Protein Negative (Neg-Trace)
[2022-03-24 18:04] LABS: Influenza A PCR NEGATIVE (Negative); Influenza B PCR NEGATIVE (Negative); Resp Syncy Virus RNA Qual PCR NEGATIVE (Negative); SARS COV2 PCR INHOUSE NEGATIVE (Negative)
== END 2022-03-24 17:05 | disposition home or self-care (01) ==
PROVIDERS: Student in an Organized Health Care Education/Training Program; Emergency Provider Emergency Medicine; PCP Internal Medicine
DX: R42 Dizziness and giddiness (principal); R51.9 Headache, unspecified; R47.1 Dysarthria and anarthria; M54.2 Cervicalgia; Z20.822 Contact with and (suspected) exposure to COVID-19; Z79.899 Other long term (current) drug therapy
CPT/HCPCS: 0241U; 36415; 70450; 80053; 81003; 84484; 85025; 85610; 93005; 99284; 99285

== ENCOUNTER 2022-05-26 08:13 | Outpatient (REF) | payer MEDICARE, OTHER, SELFPAY ==
[2022-05-26 09:28] LABS: Alanine Aminotransferase 31 U/L (0-31); Albumin Level 4.1 g/dL (3.5-5.0); Alkaline Phosphatase 74 U/L (39-117); Anion Gap 14 (12-20); Aspartate Amino Transferase 20 U/L (5-31); Bilirubin Total 1.1 mg/dL (0.0-1.0); Blood Urea Nitrogen 16 mg/dL (9-16); Calcium 9.3 mg/dL (8.4-10.2); Carbon Dioxide 26 mmol/L (22-29); Chloride 106 mmol/L (96-108); Cholesterol 164 mg/dL; Estimated Glomerular Filt Rate > 60; Glucose Fasting 92 mg/dL (60-99); HDL Cholesterol 51 mg/dL; LDL Cholesterol Calculated 100 mg/dl; Potassium 4.4 mmol/L (3.3-5.1); Sodium 142 mmol/L (135-145); Total Protein 6.8 g/dL (6.5-8.0); Triglycerides 69 mg/dL
[2022-05-26 09:44] LABS: Vitamin D 25-OH Total 39.3 ng/mL (>30)
== END 2022-05-26 08:14 | disposition home or self-care (01) ==
LOC: HO.LAB 08:13
PROVIDERS: PCP Internal Medicine; Visit Provider Internal Medicine
DX: I63.512 Cerebral infarction due to unspecified occlusion or stenosis of left middle cerebral artery (principal); E55.9 Vitamin D deficiency, unspecified; E78.5 Hyperlipidemia, unspecified
CPT/HCPCS: 36415; 80053; 80061; 82306

== ENCOUNTER 2022-08-11 13:21 | Outpatient (REF) | payer MEDICARE, OTHER, SELFPAY ==
--- NOTE | ~2022-08-11 | MM_ITS ---
EXAMINATION: MM DIAGNOSTIC DIGITAL BREAST TOMOSYNTHESIS, BILATERAL US DIAGNOSTIC ULTRASOUND BREAST, BILATERAL CLINICAL INFORMATION: Recent breast pain, bilateral outer breasts. Currently asymptomatic. No palpable mass or discharge. Remote history reduction mammoplasty, 2010. The lifetime risk of breast cancer based on the Tyrer-Cuzick Model is 3%. COMPARISON: Prior mammography exams, including most recent 11/18/2021. TECHNIQUE: Digital breast tomosynthesis is performed in both the craniocaudal and mediolateral oblique views along with computer-aided detection (CAD). Synthesized 2D images are generated from the tomosynthesis. Ultrasound bilateral breasts is performed using grayscale imaging and color Doppler without and with harmonics. Ultrasound is targeted to the bilateral areas of recent symptoms, left 1:00 through 5:00, and right 7:00 through 11:00. FINDINGS: There are scattered areas of fibroglandular density (ACR BI-RADS breast composition Category b). Parenchymal pattern is similar to prior exams and there is no developing density or interval mass or architectural abnormality. There is old scarring consistent with the reduction mammoplasty similar to prior exams with scattered bilateral surgical clips as well as an old biopsy clip marker posterior 12:00 left breast. No abnormal calcifications. The axilla are unremarkable. No skin thickening or coarsening of the stromal markings. No significant changes from prior exams. Bilateral breast ultrasound demonstrates no cystic or solid mass, architectural abnormality, or focal duct ectasia. There is some minor scarring at real-time imaging consistent with the prior reduction mammoplasty and mammography. No skin thickening or edema tracking in soft tissue planes. No hyperemia on color Doppler. Results are discussed with the patient at time of visit. The mammogram is similar to prior studies and the bilateral ultrasound is unremarkable. The patient confirms that her recent symptoms have resolved. MM/MM tomosynthesis diagnostic BI IMPRESSION: -No mammographic evidence of malignancy or inflammatory changes. -Unremarkable bilateral breast ultrasound. ASSESSMENT: BI-RADS 2: Benign RECOMMENDATION: Routine bilateral annual screening mammography. This patient's information was entered into a reminder system with a target due date for their next mammogram.
== END 2022-08-11 13:22 | disposition home or self-care (01) ==
LOC: HO.MAMMO 13:21
PROVIDERS: PCP Internal Medicine; Visit Provider Internal Medicine
DX: N64.4 Mastodynia (principal)
CPT/HCPCS: 76642; 77062; 77066

== ENCOUNTER 2022-11-17 07:52 | Outpatient (AMB) | payer MEDICARE, OTHER, SELFPAY ==
[2022-11-17 08:08] VITALS: BP 132/80; BMI 22.3
--- NOTE | 2022-11-17 08:08 | MHC.PC.OV ---
Vital Signs 11/17/22 08:08 Height 5 ft 1 in Weight 118 lb BMI 22.3 BP 132/80 Blood Pressure Location Lt brachial Position Sitting Intake Visit Reasons: 6 month follow up appt Intake Note: Patient here for a 6 month up Tutoring Assistant Required: No Accompanied by: Self / Same As Patient Allergies peanut [PEANUT] Allergy (Severe, Verified 11/17/22 08:24) ANAPHYLAXIS Medication List - Last Reconciled 11/17/22 by Melania Reynoso MD ascorbic acid (vitamin C) 100 mg PO DAILY aspirin 81 mg PO DAILY atorvastatin 40 mg PO BEDTIME 90 days cholecalciferol (vitamin D3) 50 mcg PO DAILY Tobacco use date assessed: 05/21/22 Fall risk assessment: No Falls in past year Last assessed Fall Risk: 11/17/22 Dental Screening Dental Screen Date: 11/17/22 Did you have a dental visit in the last 12 months?: Yes Did you have a dental problem in the last 6 months where you did not have access to dental care?: No Was dental information given to patient?: Patient has dentist HPI HPI Comments History of Present Illness Details This is a 71-year-old female with history of 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 Blood pressure stable. Last cholesterol well controlled. On supplements for vitamin-D and she is compliant with medications. No chest pain or shortness of breath. [facility] Medical History (Updated 11/17/22 @ 09:05 by Melania Reynoso MD) Aphasia Dyslipidemia Epistaxis Osteoporosis Physical exam Pre-op evaluation Surgical History H/O bilateral breast reduction surgery History of esophagogastroduodenoscopy (EGD) Hx of colonoscopy Family History Father CVD (cardiovascular disease) Mother Cancer Daughter No problems noted. Social History Housing: Apartment Alcohol intake: never Patient Tobacco Use Status: Never used Tobacco e-Cigarette/Vaping Use: Never Used Second Hand Smoke Exposure: No service: No Current occupational status: unemployed and disabled Cognitive needs: No Hearing needs: No Vision needs: Yes Questionnaire Thrive Questionnaire Date Thrive assessed: 05/21/22 NATALIA-7 AMB Questionnaire NATALIA-7 Date NATALIA - 7 assessed: 05/21/22 Source: Developed by Drs. Juan Ying, Caterina Maldonado, Andre Henley and colleagues, with an educational jamaal from [employer]. Review of Systems Const All systems reviewed & are unremarkable except as noted in HPI and below Eyes Reports no additional complaints, Denies change in vision and Denies other visual disturbances Card Denies chest pain at rest, Denies chest pain with activity, Denies edema, Denies irregular heart rhythm, Denies claudication, Denies dyspnea, Denies dyspnea on exertion, Denies orthopnea, Denies paroxysmal nocturnal dyspnea and Denies slow heart rate Resp Denies cough, Denies dyspnea and Denies dyspnea on exertion GI Denies abdominal pain, Denies change in bowel habits, Denies excessive flatus, Denies nausea and Denies vomiting Denies urinary incontinence, Denies urinary hesitancy and Denies urinary urgency Musc Denies abnormal gait, Denies atrophy, Denies deformity and Denies limited range of motion Skin/Breast Denies bleeding lesions, Denies changing lesions and Denies rash Neuro Denies abnormal gait and Denies lack of coordination Physical exam (Primary Care) Vital Signs: Last Vital Signs BP 132/80 11/17/22 08:08 BMI result Body Mass Index 22.3 Tobacco/Smoking Status: Tobacco use Status Tobacco use date assessed 05/21/22 11/17/22 08:14 Patient Tobacco Use Status Never used Tobacco 11/17/22 08:14 e-Cigarette/Vaping Use Never Used 11/17/22 08:14 Thrive Assessment: Date of Thrive Assessment Date Thrive assessed 05/21/22 11/17/22 08:14 Eyes General: appearance normal, both eyes and all related structures Eyelids: Yes eyelids normal Conjunctivae: conjunctivae normal Neck Neck: Yes normal visual inspection and Yes supple Resp Effort & Inspection: normal respiratory effort Auscultation: clear to auscultation bilaterally Cardio Jugular venous distension: no JVD Rate: regular rate Rhythm: regular rhythm Heart sounds: S1 normal heart sound present and S2 normal heart sound present Neuro Speech: Expressive aphasia present Extrem General: Yes full ROM Assessment and Plan Assessment & Plan (1) Cerebral infarction involving left middle cerebral artery: Code(s): I63.512 - Cerebral infarction due to unspecified occlusion or stenosis of left middle cerebral artery Plan: Continue aspirin (2) Dyslipidemia: Code(s): E78.5 - Hyperlipidemia, unspecified Plan: Continue statins (3) Hypovitaminosis D: Code(s): E55.9 - Vitamin D deficiency, unspecified Plan: Continue vitamin-D supplement Orders: Orders Comprehensive [place]. Panel Fast 6 Months I63.512 - Cerebral infarction due to unspecified occlusion or stenosis of left middle cerebral artery Lipid Panel 6 Months E78.5 - Hyperlipidemia, unspecified Vitamin D 25-OH Total 6 Months E55.9 - Vitamin D deficiency, unspecified Coding Level of Care Code Est Pt Level 3 (92977) Diagnoses Cerebral infarction involving left middle cerebral artery I63.512 Dyslipidemia E78.5 Hypovitaminosis D E55.9 Time Spent (min) 18
== END 2022-11-17 08:31 | disposition home or self-care (01) ==
PROVIDERS: Visit Provider Internal Medicine
DX: I63.512 Cerebral infarction due to unspecified occlusion or stenosis of left middle cerebral artery (principal); E78.5 Hyperlipidemia, unspecified; E55.9 Vitamin D deficiency, unspecified
CPT/HCPCS: 99213

== ENCOUNTER 2022-11-24 09:37 | Outpatient (REF) | payer MEDICARE, OTHER, SELFPAY | END 2022-11-24 09:38 | disposition home or self-care (01) | LOC: HO.MAMMO 09:37 | PROVIDERS: PCP Internal Medicine; Visit Provider Internal Medicine | DX: Z13.89 Encounter for screening for other disorder (principal) ==

== ENCOUNTER 2022-12-03 10:00 | Outpatient (RCR) | payer MEDICARE, OTHER, SELFPAY ==
--- NOTE | 2020-03-01 15:22 | MHC.SL.POC ---
Name: Lili Schuster Date of : 1950 Age: 69 Date of Registration: 02/28/20 Date of Plan of Treatment: 02/07/19 Onset of Symptoms/Illness: 11/07/18 Date Treatment Started: 02/07/19 Medical Diagnosis: Cerebrovascular accident (CVA), unspecified mechanism (I63.9) Speech & Language Primary Diagnosis:R47.01 Aphasia Recommendation for Speech Therapy: Text Comment: Continue speech therapy weekly televisit sessions Frequency/Duration: 1x weekly Notes: Plan to continue weekly televisit speech therapy targeting long-term goals: 1.) Ms. Schuster will improve her performance on an expressive naming probe to 80% accuracy and minimal assistance. 2.) Ms. Schuster will utilize a variety of word-finding strategies at the conversational level with minimal assistance in >80% opportunities presented to her. Lili may benefit from re-evaluation, as it has been 12 months since her last assessment. Plan for diagnostic intervention to monitor progress and identify appropriate goals. Goal #1 : Ms. Schuster will complete selected subtests and informal assessments to further evaluate receptive language abilities and to inform goals that are functional to her daily needs. Status of Goal #1 : Goal Continued Goal #2 : Ms. Schuster will utilize complete a SEMANTIC FEATURE ANALYSIS chart for target words, providing physical components, category, use/function, action, association, location in 8 out of 10 trials with moderate assistance. Status of Goal #2: Goal Continued Goal #3 : Ms. Schuster will use circumlocution, gestures, and writing to facilitate word retrieval and listener understanding when exhibiting word recall difficulty during conversation when provided with minimal cueing in 4 out of 5 opportunities across 3 sessions. Status of Goal #3: Goal Continued Goal #4: Ms. Schuster will identify a category for concrete nouns given 3-5 members and add 2 additional members in 4 out of 5 trials with minimal assistance. Status of Goal #4: Goal Continued Museum Registrar Clinican/Clinical Fellow: No Supervisory Statement: I have reviewed and agree with the documentation written by the student/clinical fellow: N/A Speech Language Pathologist: Malaika Ellison M.A., CCC-REMELT OPERATOR
--- NOTE | 2020-06-19 10:59 | MHC.SL.SOA ---
Date of Plan of Treatment:02/07/19 Onset of Symptoms/Illness:11/07/18 Date Treatment Started:02/07/19 Medical Diagnosis:Cerebrovascular accident (CVA), unspecified mechanism (I63.9) Primary Speech Language Diagnosis:R47.01 Aphasia Secondary Speech Language Diagnosis: Reason for Visit:Distance Visit using synchronous video Subjective:Lili participated in this therapy session utilizing telepractice as the [facility] is currently closed for an indefinite amount of time as a precaution to the COVID-19 pandemic. Lili participated in a skilled 1:1 speech therapy session using her cellular device (voice only) due to connectivity issues accessing [employer]. Lili participated in this audio-only televisit session on a cell phone from home in [place], [place]. Provider (this [employer] INSTALLER) was located at work location, [facility] [facility] in [place], [place]. This session was conducted in Armenian and Canadian. Objective: During a responsive naming task, Lili listened to brief descriptions including 1-3 details, and named items in 17 out of 17 trials when provided with maximal assistance. Lili was provided with semantic information, phonemic cues, and orthographic cues as well. Lili answered yes/no questions RE: general knowledge with 100% accuracy independently. Lili read aloud sentences on her own. Assessment:Lili continues to benefit from multimodal cues (written, phonemic, semantic, gestural). Lili has made progress in her verbal expression and word finding ability. She is very motivated to practice strategies at home. Lili will complete home activities, which include word searches and semantic feature analysis. Notes: Plan to continue weekly televisit speech therapy targeting long-term goals: 1.) Ms. Schuster will improve her performance on an expressive naming probe to 80% accuracy and minimal assistance. 2.) Ms. Schuster will utilize a variety of word-finding strategies at the conversational level with minimal assistance in >80% opportunities presented to her. Lili may benefit from re-evaluation, as it has been 12 months since her last assessment. Plan for diagnostic intervention to monitor progress and identify appropriate goals. Plan: Goal #1 : Ms. Schuster will complete selected subtests and informal assessments to further evaluate receptive language abilities and to inform goals that are functional to her daily needs. Status of Goal #1 : Goal Continued Goal #2 : Ms. Schuster will utilize complete a SEMANTIC FEATURE ANALYSIS chart for target words, providing physical components, category, use/function, action, association, location in 8 out of 10 trials with moderate assistance. Status of Goal #2: Goal Continued Goal #3 : Ms. Schuster will use circumlocution, gestures, and writing to facilitate word retrieval and listener understanding when exhibiting word recall difficulty during conversation when provided with minimal cueing in 4 out of 5 opportunities across 3 sessions. Status of Goal #3: Goal Continued Goal #4: Ms. Schuster will identify a category for concrete nouns given 3-5 members and add 2 additional members in 4 out of 5 trials with minimal assistance. Status of Goal #4: Goal Continued Seen by: Graduate/Clinical Fellow: No Speech Language Pathologist: Malaika Ellison M.A., [facility]-[employer] INST[employer]ER
--- NOTE | 2020-06-19 13:03 | MHC.SL.SOA ---
Referring Provider: Preston Odom M.D. Reason for Referral: Aphasia after stroke Date of Plan of Treatment:02/07/19 Onset of Symptoms/Illness:11/07/18 Date Treatment Started:02/07/19 Medical Diagnosis:Cerebrovascular accident (CVA), unspecified mechanism (I63.9) Primary Speech Language Diagnosis:R47.01 Aphasia Reason for Visit:Distance Visit using synchronous video Subjective:Lili participated in this therapy session utilizing telepractice as the [facility] is currently closed for an indefinite amount of time as a precaution to the COVID-19 pandemic. Lili participated in a skilled 1:1 speech therapy session using her cellular device (voice only) due to connectivity issues accessing [employer] today. Lili participated in this audio-only televisit session on a cell phone from home in [place], [place]. Provider (this LABORER) was located at work location, [employer] [facility] in [place], [place]. This session was conducted in Nigerien and Tongan. Lili references a shared packet of activities and visuals. Objective: Category exclusion: Lili read aloud 4-6 word lists. She read aloud one question per list requiring her to select the items that do not belong (i.e. Which ones are not drinks? ). Lili completed this task in 100% of trials with minimal assistance. Lili is provided with extra time to read each statement. Some semantic and phonemic paraphasias noted while reading. However, Lili is aware of paraphasias and self-corrects any errors. Rewording illogical sentences: Lili read aloud sentences which included inconsistencies (i.e. You cut meat with a SPOON I sleep in a TREE ). Lili was instructed to identify errors in each sentence and to replace with the correct word. Lili identified errors in each sentence with 100% accuracy independently. Lili exhibited word retrieval difficulty. She was observed to use compensatory strategies with minimal prompting. Lili described the item she believed belonged in the sentence. For example, when describing knife she said It is sharp and In Tongan it is cuchillo. Lili corrected sentences in 70% of trials when provided with moderate level assistance. Lili elicited words in both Nigerien and Tongan interchangeably. Assessment:Lili continues to benefit from multimodal cues (written, phonemic, semantic, gestural). Lili has made progress in her verbal expression and word finding ability. Lili is observed to use compensatory strategies to facilitate speech flow and to help others understand her intended message. She is very motivated to practice strategies at home. Lili will complete home activities, which include word searches and semantic feature analysis. Notes: Plan to continue weekly televisit speech therapy targeting long-term goals: 1.) Ms. Schuster will improve her performance on an expressive naming probe to 80% accuracy and minimal assistance. 2.) Ms. Schuster will utilize a variety of word-finding strategies at the conversational level with minimal assistance in >80% opportunities presented to her. Lili may benefit from re-evaluation, as it has been 12 months since her last assessment. Plan for diagnostic intervention to monitor progress and identify appropriate goals. Plan: Goal #1 : Ms. Schuster will complete selected subtests and informal assessments to further evaluate receptive language abilities and to inform goals that are functional to her daily needs. Status of Goal #1 : Goal Continued Objectives/Clinical Observations: Goal #2 : Ms. Schuster will utilize complete a SEMANTIC FEATURE ANALYSIS chart for target words, providing physical components, category, use/function, action, association, location in 8 out of 10 trials with moderate assistance. Status of Goal #2: Goal Continued Objectives/Clinical Observations : Goal #3 : Ms. Schuster will use circumlocution, gestures, and writing to facilitate word retrieval and listener understanding when exhibiting word recall difficulty during conversation when provided with minimal cueing in 4 out of 5 opportunities across 3 sessions. Status of Goal #3: Goal Continued Objectives/Clinical Observations : Goal #4: Ms. Schuster will identify a category for concrete nouns given 3-5 members and add 2 additional members in 4 out of 5 trials with minimal assistance. Status of Goal #4: Goal Continued Objectives/Clinical Observations : Seen by: Graduate/Clinical Fellow: [place] Speech Language Pathologist: Malaika Ellison M.A., CCC-LABORER
--- NOTE | 2020-06-19 13:04 | MHC.SL.MED ---
[address] [address] Speech & Hearing [phone] Name: Lili Schuster Date of : 1950 Age: 69 Date of Registration: 06/12/20 Speech Language Pathology/Physician Plan of Care Statement I certify that the following Speech Language Pathology services are being furnished under this plan of treatment and while under my care. Speech Language Pathologist signature: Date Physician Signature: Date Please Sign and return to therapist, thank you for your referral. Referring provider: Preston Odom M.D. Reason for Referral: Aphasia after stroke Date of Plan of Treatment: 02/07/19 Onset of Symptoms/Illness: 11/07/18 Date Treatment Started: 02/07/19 Medical Diagnosis: Cerebrovascular accident (CVA), unspecified mechanism (I63.9) Speech & Language Primary Diagnosis:R47.01 Aphasia Recommendation for Speech Therapy: Text Comment: Continue weekly therapy sessions (televisits) Frequency/Duration: 1x weekly Date Range for Service Requested: 06/26/20-09/26/20 Timeline to reassess: Re-evaluation needed Notes: Plan to continue weekly televisit speech therapy targeting long-term goals: 1.) Ms. Schuster will improve her performance on an expressive naming probe to 80% accuracy and minimal assistance. 2.) Ms. Schuster will utilize a variety of word-finding strategies at the conversational level with minimal assistance in >80% opportunities presented to her. Lili may benefit from re-evaluation, as it has been 12 months since her last assessment. Plan for diagnostic intervention to monitor progress and identify appropriate goals. Goal #1 : Ms. Schuster will complete selected subtests and informal assessments to further evaluate receptive language abilities and to inform goals that are functional to her daily needs. Status of Goal #1 : Goal Continued Goal #2 : Ms. Schuster will utilize complete a SEMANTIC FEATURE ANALYSIS chart for target words, providing physical components, category, use/function, action, association, location in 8 out of 10 trials with moderate assistance. Status of Goal #2: Goal Continued Goal #3 : Ms. Schuster will use circumlocution, gestures, and writing to facilitate word retrieval and listener understanding when exhibiting word recall difficulty during conversation when provided with minimal cueing in 4 out of 5 opportunities across 3 sessions. Status of Goal #3: Goal Continued Goal #4: Ms. Schuster will identify a category for concrete nouns given 3-5 members and add 2 additional members in 4 out of 5 trials with minimal assistance. Status of Goal #4: Goal Continued Electrical Drafter Clinican/Clinical Fellow: No Supervisory Statement: I have reviewed and agree with the documentation written by the student/clinical fellow: N/A Speech Language Pathologist: Malaika Ellison M.A., CCC-WEBMASTER
--- NOTE | 2021-01-01 15:43 | MHC.SL.SOA ---
Referring Provider: Referring: Preston Odom M.D./ Attending: Nikos Rhodes M.D. Reason for Referral: Aphasia after stroke Date of Plan of Treatment:10/23/20 Onset of Symptoms/Illness:11/07/18 Date Treatment Started:02/07/19 Medical Diagnosis:Cerebrovascular accident (CVA), unspecified mechanism (I63.9) Primary Speech Language Diagnosis:R47.01 Aphasia Reason for Visit:81210 Individual Treatment Subjective:Patient is a 70 year old woman who has been attending weekly speech therapy sessions at [facility] since late 2018. Patient briefly transitioned to remote speech therapy sessions and recently resumed in-person meetings again. 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 In 2019 she experienced a left-hemisphere stroke and was admitted to [facility] for 5 [facility]. Patient recalls having the stroke while at work, and reports having a facial droop, which resolved, and visual deficits. Patient?s primary language is Samoan, but she also speaks Palauan and Arabic. Our sessions are conducted in Palauan and Samoan. Patient recently participated in re-evaluation to monitor the progress she has made thus far and to update goals as needed. This session was conducted in person with appropriate health and safety precautions due to the current COVID19 pandemic. Objective: Patient completed the Communication Activities of Daily Living- Second Edition (CADL-2) as a measure of her functional language skills. Her Raw Score of 93 correlates to Stanine Score 8 and Percentile Rank 94%, signifying that patient has a high level of functional communication. Patient communicated her order from a menu, read a bus schedule, marked a calendar with events, read signs in offices, and made grocery lists without difficulty. Patient completed the Cognitive Linguistic Quick Test (CLQT) as a measure of her cognitive-linguistic skills. Her performance is as follows: Task: Patient?s Score, Criterion Cut Score, Interpretation Personal Facts: 8, 8, Within Functional Limits Symbol Cancellation: 10, 10, Within Functional Limits Confrontational Namin, 10, Below Average Clock Drawin, 11, Below Average Story Retellin, 5, Within Functional Limits Symbol Trails: 5, 6, Below Average Generative Namin, 4, Below Average Design Memory: 3, 4, Below Average Mazes: 4, 4, Within Functional Limits Design Generation: 5, 5, Within Functional Limits Task scores were summed together based on cognitive domain. Cognitive Domain scores are as follows: Cognitive Domain: Domain Score, Severity Range, Severity Rating Attention: 142, Mild, 3 Memory: 118, Mild, 3 Executive Functions: 16, Mild, 3 Language: 23, Moderate, 2 Visuospatial Skills: 59, Mild, 3 Patient?s Composite Severity Rating of 2.8 is interpreted as MILD according to her performance on this assessment measure. Patient completed the [place] Naming Test (BNT) short form. She was presented with images, which she was instructed to name in a confrontation naming task. Patient correctly named 5 out of 15 images after a short time delay. When prompted with a forced choice, patient selected the correct answer 8 out of 11 times. Patient was administered the Auditory Comprehension, Oral Expression, Reading and Writing subtests of the [place] Diagnostic Aphasia Examination. Her performance is summarized below: RECEPTIVE LANGUAGE: -Patient identified items in illustrations when provided with a choice of 2-4 in 12 out of 16 trials. Patient identified numbers and colors without difficulty. Errors made in identification of letters and objects. -Patient followed multistep and complex directions in 3 out of 7 trials. Patient often completed multistep directions partially or out of order. -Patient correctly answered yes/no questions about ideational material in 1 out of 4 trials and about short stories read aloud for her in 5 out of 8 trials. EXPRESSIVE LANGUAGE: -Patient generated the days of the week after a delay and several self-corrections. Patient counted to 21 without difficulty. -Patient repeated single words in 4 out of 5 trials and complete sentences in 1 out of 2 trials. -Patient responded appropriately to responsive naming questions (i.e. ?What do you use to shave??) in 4 out of 5 trials. Patient exhibited difficulty finding target word ?scissors,? but gestured ?cutting? motion to signify that she knew the target word, though she could not name it at that moment. -Patient correctly named ?special categories,? which included letters, numbers, and colors in 12 out of 12 trials. READING: -Patient was able to match letters across cases and scripts, demonstrating basic symbol recognition- 4/4 correct -Patient was able to match numbers to fingers and dot patterns- 4/4 correct -Patient matched pictures to written words, demonstrating intact word identification- 4/4 correct -Patient read aloud single words without difficulty. Patient read aloud single words within 0-3 seconds, demonstrating basic oral word reading- 15/15 score -Patient read aloud sentences correctly in 1 out of 5 trials. Patient answered comprehension questions correctly after a short time delay- 3/3 correct -Patient read aloud sentences and paragraphs and selected the completion from a choice of 4 without assistance- 4/4 correct WRITING: -Patient was able to print and sign her name -Patient was able to write dictated letters -Patient was able to write numbers 1-10 -Patient was able to write dictated numbers -Patient wrote primer words (i.e. cat; run; go; dog) and words with regular phonics (i.e. flag). Noted spelling errors when writing common irregular forms (i.e. cough, knife, nation) Assessment:*PATIENT PRESENTS WITH A MODERATE RECEPTIVE-EXPRESSIVE APHASIA. It is recommended for patient to continue speech therapy once weekly in the outpatient setting to target word finding, Notes: Long-term goals: 1. Patient will utilize compensatory strategies to facilitate word recall during daily communication tasks. 2. Patient will increase the use of compensatory/ anticipatory strategies to repair miscommunication or misunderstanding in conversation. Plan: Goal # : 1. Patient will utilized trained word finding strategies (i.e. SFA, circumlocution, gestures) for a 2 minute description of recent events with 80% accuracy and minimal cues. Status of Goal: New Goal Goal # : 2. Patient will identify and write 3 luu pieces of information within a spoken message (i.e. phone call, making appointments, directions) in 80% of opportunities when provided with minimal to moderate cues. Status of Goal: New Goal Goal # : 3. Patient will increase the use of strategies (i.e. asking for repetition/rephrase; asking for written information; requesting visual, etc) for effective repair of misunderstanding during conversations 80% of the time with minimal cues. Status of Goal: New Goal Goal # : 4. Patient will demonstrate reading comprehension of 5 sentence paragraphs with 80% accuracy and minimal cues. Status of Goal: New Goal Seen by: Graduate/Clinical Fellow: No Supervisory Statement: f_Reg Query Last Value , [facility] Speech Language Pathologist: Malaika Ellison M.A., [facility] NUTRITIONIST
--- NOTE | 2021-10-30 16:02 | MHC.SL.SOA ---
Referring Provider: Referring: Preston Odom M.D./ Attending: Nikos Rhodes M.D. Reason for Referral: Aphasia after stroke Date of Plan of Treatment:10/23/20 Onset of Symptoms/Illness:11/07/18 Date Treatment Started:02/07/19 Medical Diagnosis:Cerebrovascular accident (CVA), unspecified mechanism (I63.9) Primary Speech Language Diagnosis:R47.01 Aphasia Reason for Visit:63358 Individual Treatment Subjective:Patient is a 70 year old woman who has been attending weekly speech therapy sessions at [facility] since late 2018. 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 In 2019 she experienced a left-hemisphere stroke and was admitted to [facility] for 5 days. Patient recalls having the stroke while at work, and reports having a facial droop, which resolved, and visual deficits. Patient?s primary language is Irish, but she also speaks Malay and [place] Islander. Our sessions are conducted in Malay and Irish. Patient recently participated in re-evaluation to monitor the progress she has made thus far and to update goals as needed. This session was conducted in person with appropriate health and safety precautions due to the current COVID19 pandemic. Objective: Patient completed the [place] Naming Test (BNT) short form. She was presented with images, which she was instructed to name in a confrontation naming task. Patient correctly named 6 out of 15 images after a short time delay without any cuing. Patient displayed phonemic paraphasias (i.e. Labeled ?bank? for target word ?bench?) and semantic paraphasias (i.e. Labeled ?watercolor? for target word ?palate?) during confrontational naming tasks and within spontaneous utterances as well. Patient is often aware of her errors and attempts to self-correct. Patient is also observed to compensate for word retrieval difficulty by using gestures, writing, and circumlocution. For example, patient exhibited difficulty naming an image depicting a cactus. Patient reached for a piece of paper and began writing, ?cact?? Additionally, when presented with an image of a unicorn, patient stated, ?I know that one.? She elaborated, ?It?s like a horse for kids.? Patient often described target items with 2-3 details or associations before attempting to name them. Patient was able to name 1 additional item when the clinician provided her with a semantic cue (i.e. ?This is a type of boat that you row in? for target word ?canoe?), 3 items when provided with a phonemic cue (i.e. ?This is a un?? for target word ?unicorn?), 1 item with a cloze phrase (i.e. ?To listen to your heart, the doctor uses a?? for target word ?stethoscope?), and 2 items when provided with orthographic cues (i.e. ?It starts with the letter b?). Patient correctly read aloud 12/15 written words. When patient was shown alternate images selected by the clinician, which all depicted common household items, she correctly named 13/15. Patient continues to demonstrate word finding difficulties, particularly with less common words. However, patient?s utilization of compensatory strategies and self-cues has noticeably increased. Patient was also administered the Auditory Comprehension, Oral Expression, Reading and Writing subtests of the [place] Diagnostic Aphasia Examination. Her performance is summarized below: Assessment:RECEPTIVE LANGUAGE: -Patient was instructed to identify spoken words by pointing to her response. Patient identified body parts on herself, and line images from an array of 4 correctly in 14 out of 16 trials. Responses after a short time delay (>5 sec) were scored with 1/2 point while immediate responses (<5 sec) were scored with 1 point. Patient received a score of 12/16 on this portion. -Patient followed multistep and complex directions in 2 out of 3 trials. Patient was presented with a verbal direction. Each element of the direction carried out was scored with 1 point. Patient received a score of 7 out of 10 on this task. Patient often completed multistep directions partially or out of order. -Patient correctly answered yes/no questions about ideational material in 1 out of 4 trials and about short stories read aloud for her in 8 out of 8 trials. Questions were presented in pairs (6 pairs), each pair consisting of a yes-item and a no-item. In order to gain 1 point, patient was to answer both questions correctly. Patient received a score of 4/6. EXPRESSIVE LANGUAGE: -Mixing both languages Malay and Irish, patient generated the days of the week after a delay and several self-corrections. Patient counted to 21 in Irish without difficulty, receiving a score of 4/4. It is noted during our sessions, that patient makes errors when reciting and/or writing the alphabet. -Patient repeated single words in 4 out of 5 trials and complete sentences in 0 out of 2 trials. -Patient responded appropriately to responsive naming questions (i.e. ?What do you use to shave??) in 4 out of 5 trials. Items immediately named were scored as 2 points and items named after a short time delay (>5 sec) were scored as 1 point. Patient named 4 items after a short time delay, receiving a score of 4/10. When asked the question, ?What do you do with a razor?,? patient gestured motion for ?shaving,? but exhibited difficulty retrieving the word. -Patient correctly named ?special categories,? which included letters, numbers, and colors in 11 out of 12 trials, receiving a score 11/12. Patient named 200 as ?twenty-hundred.? READING: -Patient was able to match letters across cases and scripts, demonstrating basic symbol recognition, receiving a score of 4/4 on this task. -Patient was able to match numbers to fingers and dot patterns, receiving a score of 4/4 on this task. -Patient matched pictures to written words, demonstrating intact word identification. Patient received a score of 4/4 on this task. -Patient read aloud single words without difficulty. Patient read aloud single words within 0-3 seconds, demonstrating basic oral word reading- 15/15 score -Patient read aloud sentences correctly in 3 out of 5 trials. Patient answered comprehension questions correctly after a short time delay- 1/3 correct -Patient read aloud sentences and paragraphs and selected the completion from a choice of 4 without assistance- 4/4 correct WRITING: -Patient was able to print and sign her name -Patient exhibited difficulty writing dictated letters and numbers. -Patient was able to write numbers 1-10 -Patient wrote primer words (i.e. cat; run; go; dog). Noted spelling errors when writing common irregular forms (i.e. cough, knife, nation). Patient received a scores of 4/4 when writing primer words, 1/2 when writing words targeting regular phonics, 1/3 when writing common irregular forms. -Well-formedness of letters scored as 14/14. Letters were all well-formed. Correctness of letter choice scored as . No evident impairments in motor facility of writing, scored as 14/14. *PATIENT PRESNTS WITH A MODERATE RECEPTIVE-EXPRESSIVE APHASIA. Patient is recommended weekly, individualized speech therapy sessions with a bilingual speech language pathologist to target word retrieval. Notes: Continue weekly speech therapy. Next session is scheduled for Sunday 10/29 at 3:30pm. Long-term goals: 1. Patient will utilize compensatory strategies to facilitate word recall during daily communication tasks. 2. Patient will increase the use of compensatory/ anticipatory strategies to repair miscommunication or misunderstanding in conversation. Plan: Goal # : 1. Patient will utilized trained word finding strategies (i.e. SFA, circumlocution, gestures, writing) for a 2 minute description of recent events/paragraph summary in 80% of opportunities when provided with minimal verbal cues. Status of Goal: Revised Goal Goal # : 2. Patient will identify and write 3 luu pieces of information within a spoken or written message (i.e. phone call, making appointments, directions) in 80% of opportunities when provided with minimal to moderate cues. Status of Goal: Revised Goal Goal # : 3. Patient will increase the use of strategies (i.e. asking for repetition/rephrase; asking for written information; requesting visual, etc) for effective repair of misunderstanding during conversations 80% of the time with minimal cues. Status of Goal: Revised Goal Goal # : 4. Patient will demonstrate reading comprehension of 5 sentence paragraphs with 80% accuracy and minimal cues. Status of Goal: Revised Goal Seen by: Graduate/Clinical Fellow: No Supervisory Statement: f_Reg Query Last Value , [facility] Speech Language Pathologist: Malaika Ellison M.A., [facility]
--- NOTE | 2022-12-03 15:39 | MHC.SL.SOA ---
Referring Provider: Referring: Preston Odom M.D./ Attending: Nikos Rhodes M.D. Reason for Referral: Aphasia after stroke Date of Plan of Treatment:12/03/22 Onset of Symptoms/Illness:11/07/18 Date Treatment Started:02/07/19 Medical Diagnosis:Cerebrovascular accident (CVA), unspecified mechanism (I63.9) Primary Speech Language Diagnosis:R47.01 Aphasia Reason for Visit:[id number] Individual Treatment Subjective:Pt arrived on time for her last speech therapy session. She appeared to be in positive spirits and expressed gratitude for the staff at the [facility]. Objective: 1. Patient will utilized trained word finding strategies (i.e. SFA, circumlocution, gestures, writing) for a 2 minute description of recent events/paragraph summary in 80% of opportunities when provided with minimal verbal cues. GOAL MET: Pt utilized word finding strategies (i.e. circumlocution, gestures, and writing) during semi-structured conversation in 10/10 opportunities when provided with minimal verbal cues. 2. Patient will identify and write 3 luu pieces of information within a spoken or written message (i.e. phone call, making appointments, directions) in 80% of opportunities when provided with minimal to moderate cues. GOAL MET: Pt identified 3-6 luu pieces of information from short written messages in 10/10 trials independently. 3. Patient will increase the use of strategies (i.e. asking for repetition/rephrase; asking for written information; requesting visual, etc) for effective repair of misunderstanding during conversations 80% of the time with minimal cues. GOAL MET: Pt used various compensatory strategies (i.e. asking for repetition/rephrasing; asking for time to write out her thoughts) to repair communication breakdowns in >90% of opportunities with minimal verbal prompting. 4. Patient will demonstrate reading comprehension of 5 sentence paragraphs with 80% accuracy and minimal cues. GOAL MET: Pt answered WH-questions about 3-paragraph reading samples with >90% accuracy and minimal verbal cues. Assessment:Pt presents with a moderate receptive-expressive aphasia. Pt produces semantic/phonemic paraphasias, is aware of these word finding difficulties, and often makes an attempt to correct herself. Pt was previously frustrated during these episodes and would move on to discuss a different topic. Throughout her sessions, pt has worked on, instead, compensating for word finding difficulties using various strategies. Pt is able to use gesture, writing, and circumlocution to facilitate word recall. When she is not able to recall a word for herself after attempting various strategies, pt will describe the word and ask the communication partner for assistance retrieving it. The strategy of circumlocution, or describing the word, also facilitates the listener's comprehension of pt's intended message and continues the conversation. In anticipation of potential communication breakdowns, pt also advocates for herself by carrying an aphasia card and educating others about her aphasia and her communication needs (i.e. allow me more time to answer questions ). Pt shared that she has purchased books to continue to work on her word finding and that she feels the best practice is participating in social outings. Pt is independent in her daily living, as she reports no difficulties writing checks, making appointments, speaking on the phone, etc. Pt also routinely attends a local stroke support group, where she is connected with other community resources. Pt has met her short term objectives and has expressed satisfaction in the progress she has made here. Pt is discharged from outpatient speech therapy services at this time. Notes: D/C Outpatient Speech Therapy. It has been a pleasure working with Lili. UI UX DEVELOPER encouraged pt to contact the [facility] should any future concerns arise. Plan: Goal # : 1. Patient will utilized trained word finding strategies (i.e. SFA, circumlocution, gestures, writing) for a 2 minute description of recent events/paragraph summary in 80% of opportunities when provided with minimal verbal cues. Status of Goal: Goal Met Goal # : 2. Patient will identify and write 3 luu pieces of information within a spoken or written message (i.e. phone call, making appointments, directions) in 80% of opportunities when provided with minimal to moderate cues. Status of Goal: Goal Met Goal # : 3. Patient will increase the use of strategies (i.e. asking for repetition/rephrase; asking for written information; requesting visual, etc) for effective repair of misunderstanding during conversations 80% of the time with minimal cues. Status of Goal: Goal Met Goal # : 4. Patient will demonstrate reading comprehension of 5 sentence paragraphs with 80% accuracy and minimal cues. Status of Goal: Goal Met Seen by: Graduate/Clinical Fellow: No Supervisory Statement: f_Reg Query Last Value , [facility] Speech Language Pathologist: Malaika Ellison M.A., CCC-UI UX DEVELOPER
== END 2022-12-04 10:48 | disposition home or self-care (01) ==
LOC: HO.SH 10:00
PROVIDERS: Visit Provider Internal Medicine
DX: I69.320 Aphasia following cerebral infarction (principal)
CPT/HCPCS: 92507

== ENCOUNTER 2022-12-24 16:42 | Emergency (ER) | payer MEDICARE, OTHER, SELFPAY ==
--- NOTE | ~2022-12-24 | XR_ITS ---
EXAMINATION: XR CHEST XR LEFT RIBS CLINICAL INFORMATION: Chest pain and left rib cage pain COMPARISON: CXR from 12/30/2019 TECHNIQUE: Chest, 2 views Left ribs, 3 views FINDINGS: CHEST: Lungs are well expanded and clear. No pneumothorax or pleural effusion. Cardiac silhouette is normal in size. Mild tortuosity of descending thoracic aorta. Pulmonary vascular pattern is normal. Small surgical clips noted at lateral aspect of each breast. The visualized bones are intact. Small osteophytes are present at mildly degenerated glenohumeral joints. LEFT RIBS: Left-sided ribs have an intact appearance. No focal lytic or blastic lesion. No fractures are seen. XR/XR chest 2V IMPRESSION: * No evidence of rib fracture. * No acute pulmonary disease.
--- NOTE | ~2022-12-24 | XR_ITS ---
EXAMINATION: XR CHEST XR LEFT RIBS CLINICAL INFORMATION: Chest pain and left rib cage pain COMPARISON: CXR from 12/30/2019 TECHNIQUE: Chest, 2 views Left ribs, 3 views FINDINGS: CHEST: Lungs are well expanded and clear. No pneumothorax or pleural effusion. Cardiac silhouette is normal in size. Mild tortuosity of descending thoracic aorta. Pulmonary vascular pattern is normal. Small surgical clips noted at lateral aspect of each breast. The visualized bones are intact. Small osteophytes are present at mildly degenerated glenohumeral joints. LEFT RIBS: Left-sided ribs have an intact appearance. No focal lytic or blastic lesion. No fractures are seen. XR/XR ribs LT 2V IMPRESSION: * No evidence of rib fracture. * No acute pulmonary disease.
--- NOTE | 2022-12-24 16:43 | ECG_ITS ---
Test Reason : CHEST PAIN Blood Pressure : / mmHG Vent. Rate : 071 BPM Atrial Rate : 071 BPM P-R Int : 132 ms QRS Dur : 076 ms QT Int : 398 ms P-R-T Axes : 034 003 070 degrees QTc Int : 432 ms Normal sinus rhythm Nonspecific T wave abnormality Abnormal ECG When compared with ECG of 24-MAR-2022 13:53, No significant change was found Referred By: Dayna Rowley Electronically Signed By:YRN CALDERÓN
[2022-12-24 16:45] VITALS: BP 151/73; PULSE 67; RESP 18; TEMP 36.9; O2SAT 98; BMI 22.9
--- NOTE | 2022-12-24 17:01 | ED_ITS ---
HPI - Chest Pain General Chief Complaint: Chest Pain Stated Complaint: chest pain Time Seen by Provider: 12/24/22 20:20 Source: patient and spanish interpreter Mode of arrival: ambulatory History of Present Illness HPI narrative: 72-year-old female who reports that she was washing her hair yesterday and this required her to lean over the bathtub and at that time she experienced anterior chest wall pain that persisted and worsens with deep inspiration as well as movement, she otherwise denies any shortness of breath, new cough for sore throat but does report that she was mildly dizzy but denies any GI or symptoms. Pain did resolve last night but then patient began experiencing and again today, called her primary care provider who referred her into the emergency room. Patient's last mammogram was 6 months ago and was benign in nature. Related Data Home Medications Medication Instructions Recorded Confirmed ascorbic acid (vitamin C) 100 mg 100 mg PO DAILY 02/16/20 11/17/22 chewable tablet cholecalciferol (vitamin D3) 50 50 mcg PO DAILY 02/16/20 11/17/22 mcg (2,000 unit) capsule Previous Rx's Medication Instructions Recorded aspirin 81 mg tablet,delayed 81 mg PO DAILY #90 tabs 12/06/21 release atorvastatin 40 mg tablet 40 mg PO BEDTIME 90 days #90 tabs 07/13/22 Allergies Allergy/AdvReac Type Severity Reaction Status Date / Time peanut [PEANUT] Allergy Severe ANAPHYLAXIS Verified 11/17/22 08:24 Review of Systems 2 Review of Systems: Pertinent positives and negatives as stated in HPI PMFSH Past Medical History Source: nursing notes reviewed Medical History Aphasia Dyslipidemia Epistaxis Osteoporosis Physical exam Pre-op evaluation Surgical History H/O bilateral breast reduction surgery History of esophagogastroduodenoscopy (EGD) Hx of colonoscopy Family History Family History Father CVD (cardiovascular disease) Mother Cancer Daughter No problems noted. Social History Social History Housing: Apartment Alcohol intake: never Patient Tobacco Use Status: Never used Tobacco Smoked in Last 30 Days: No e-Cigarette/Vaping Use: Never Used Second Hand Smoke Exposure: No Use of substances other than those prescribed or required for medical reasons: No Advance Directives: No Advance Directives Information Provided: No service: No Current occupational status: unemployed and disabled Cognitive needs: No Hearing needs: No Vision needs: Yes Physical Exam 2 Vital Signs: Vital Signs: Last Vital Signs Temp 98.3 F 12/24/22 20:17 Pulse 56 12/24/22 20:17 Resp 16 12/24/22 20:17 BP 157/75 H 12/24/22 20:17 Pulse Ox 99 12/24/22 20:17 O2 Del Method Room Air 12/24/22 20:17 BMI result Body Mass Index 22.9 VITAL SIGNS: Reviewed. GENERAL: Well developed, well nourished, in no acute distress. HEAD: Normocephalic/atraumatic EYES: PERRLA, EOMI EARS: Ext canals without abnormality NOSE: Nares patent bilateral OROPHARYNX: no oral lesions noted, posterior pharynx clear NECK: Supple, no adenopathy LUNGS: Normal breath sounds. No adventitious sounds or accessory muscle use. SpO2<99> CARDIOVASCULAR: Regular rate and rhythm without noted murmurs, reproducible chest discomfort at left anterior chest wall below the left breast ABDOMEN: Soft, non-tender, non-distended with bowel sounds. MUSCULOSKELETAL: No tenderness, deformities, or effusions noted on gross inspection. EXTREMITIES: No cyanosis, clubbing or edema. SKIN: Inspection of the skin reveals no rashes NEUROLOGIC: Alert and oriented x 4. Strength and sensation to light touch were grossly intact x 4, patient has aphasia at baseline with some very mild stuttering from prior CVA but otherwise no facial asymmetry and cranial nerves 2-12 are grossly intact.. Course Course Course Narrative: DALE- 17:10PM - 72yoF presenting to the ED with complaints of left-sided rib cage/chest pain since yesterday. She reports that she was doing her hair yesterday and she was kneeling on the floor and had her chest against the bathtub side and when she got back up after washing her she started having this pain and since then it is persistent. She reports it is worse when she takes deep inspiration or palpation. Reports an actual fall, dizziness, change in vision, paresthesias, radiation of the pain, nausea vomiting, dyspnea on exertion orthopnea, rashes or any other symptoms complaints or concerns at this time. Plan: Ribcage x-ray, chest x-ray, EKG, labs ordered. patient sent back to the waiting room to be evaluated the in the ED. Medical Decision Making Medical Decision Making [facility] Narrative: 72-year-old female with history and clinical presentation, DDX: Musculoskeletal and possible acid reflux/costochondritis but very low clinical suspicion for ACS or pneumonia I reviewed all investigations and hematologic indices are grossly and chronically stable without leukocytosis or left shift, no anemia and no thrombocytopenia. Coagulation studies are stable. Chemistry indices are grossly within normal limits, there is no ADAIR, high sensitivity troponin is undetectable, lipase is negative and otherwise electrolytes and liver enzyme values are grossly normal. Chest x-ray/x-ray of ribs, no evidence of infiltrate or rib fractures and otherwise my interpretation is in agreement with radiology's impression. EKG is normal sinus rhythm without ST elevations. My interpretation is that patient has atypical anterior chest wall pain likely secondary to a musculoskeletal/costochondritis etiology. Patient received Tylenol. Differential Diagnosis Differential Diagnoses: The differential diagnosis associated with the presentation includes Please see the discussion above Admission/Observation Consideration of admission/observation: Escalation of care including admission/observation considered Please see the discussion above Lab Data [facility] Lab Attestation statement: I reviewed the patient's lab results. Please see the discussion above 12/24/22 16:58 12/24/22 16:58 Labs: Lab Results 12/24/22 Range/Units 16:58 WBC 5.5 (4.8-10.8) X10*3/uL RBC 5.91 H (4.20-5.50) X10*6/uL Hgb 13.5 (12.0-16.0) g/dl Hct 42.3 (37.0-47.0) % MCV 71.6 L (80.0-98.0) fL MCH 22.8 L (27.0-33.0) pg MCHC 31.9 (31.0-35.0) g/dl RDW 17.0 H (11.0-16.0) % Plt Count 238 (160-400) X10*3/uL MPV 12.3 (9.4-12.3) fL Immature Gran % (Auto) 0.2 (0.0-0.4) % Neut % (Auto) 66.5 (45-73) % Lymph % (Auto) 26.5 (20-40) % Alexander % (Auto) 5.6 (2-11) % Eos % (Auto) 0.7 (0-4) % Baso % (Auto) 0.5 (0-2) % Lymph # (Auto) 1.5 (1.2-4.9) X10*3/uL Alexander # (Auto) 0.3 (0.1-1.2) X10*3/uL Eos # (Auto) 0.0 (0.0-0.4) X10*3/uL Baso # (Auto) 0.0 (0.0-0.2) X10*3/uL Abs Immat Gran (auto) 0.01 (0.00-0.03) X10*3/uL Absolute Neuts (auto) 3.7 (2.0-8.3) x10*3/uL Absolute Nucleated RBC 0.000 (0.0-0.012) X10*3/uL Nucleated RBC % (auto) 0.0 (0.0-0.2) /100WBC PT 12.1 (11.1-13.3) SEC INR 1.0 (0.9-1.1) Sodium 141 (135-145) mmol/L Potassium 4.2 (3.3-5.1) mmol/L Chloride 108 (96-108) mmol/L Carbon Dioxide 25 (22-29) mmol/L Anion Gap 12 (12-20) BUN 13 (9-16) mg/dL Creatinine 0.78 (0.5-1.4) mg/dL Estim Creat Clear Calc 47.7 Estimated GFR > 60 Random Glucose 103 (60-115) mg/dL Calcium 9.3 (8.4-10.2) mg/dL Magnesium 2.4 (1.6-2.6) mg/dL Total Bilirubin 0.8 (0.0-1.0) mg/dL AST 15 (5-31) U/L ALT 34 H (0-31) U/L Alkaline Phosphatase 74 (39-117) U/L Troponin I High Sens < 2.7 (<3.5-17.0) ng/L Total Protein 7.2 (6.5-8.0) g/dL Albumin 4.3 (3.5-5.0) g/dL Lipase 35 (8-78) U/L Independent Interpretation I performed an independent interpretation of an: EKG Interpretation: Normal sinus rhythm, HR-71, no STEMI, WI/QRS/QTC is within normal limits. Radiology Impression Discussion of test interpretation with radiology: I have reviewed the radiologist's reading. Radiologist Impression: Please see the discussion above External Record Review External record reviewed: Outpatient record, Prior outpatient labs and Prior outpatient radiology Chronic Conditions Patient?s care impacted by: Hypertension Critical Care Time Critical Care Time Critical Care Time: Yes Total Critical Care Time: 30 Attestation: I personally attest to this time spent taking care of the patient. Discharge Plan Discharge Clinical Impression: Atypical chest pain, Costochondritis Patient Disposition: Home, Self-Care Instructions: Costochondritis (ED) Additional Instructions: 1. Reanudar todos los medicamentos caseros seg?n lo recetado. 2. Tylenol 1000 mg, por v?a oral, cada 6 horas seg?n sea necesario para controlar el dolor. No exceda los 4000 mg en 24 horas. 3. Khris un seguimiento con ndiaye proveedor de atenci?n primaria llamando al consultorio a primera hora de la ma?melania. Regrese a la jose juan de emergencias si los s?ntomas empeoran. 1. Resume all home medications as prescribed. 2. Tylenol 1000 mg, orally, every 6 hours as needed for pain control. Do not exceed 4000 mg within 24 hours. 3. Please follow-up with your primary care provider by calling the office 1st thing in the morning. Return to the ER for any worsening symptoms. Prescriptions: No Action aspirin 81 mg tablet,delayed release (DR/EC) 81 mg PO DAILY Qty: 90 3RF cholecalciferol (vitamin D3) 50 mcg (2,000 unit) capsule 50 mcg PO DAILY ascorbic acid (vitamin C) 100 mg tablet,chewable 100 mg PO DAILY atorvastatin 40 mg tablet 40 mg PO BEDTIME 90 Days Qty: 90 1RF Referrals: Melania Alejo MD [Primary Care Provider] - Print Language: Welsh
[2022-12-24 17:12] LABS: MANUAL DIFF FLAG NO
[2022-12-24 17:15] LABS: Basophils Percent Auto 0.5 % (0-2); Eosinophils Percent Auto 0.7 % (0-4); Hematocrit 42.3 % (37.0-47.0); Hemoglobin 13.5 g/dl (12.0-16.0); Imm Gran Abs Auto 0.01 X10*3/uL (0.00-0.03); Imm Gran Pct Auto 0.2 % (0.0-0.4); Lymphocytes Absolute Auto 1.5 X10*3/uL (1.2-4.9); Lymphocytes Percent Auto 26.5 % (20-40); Mean Corpuscular HGB Conc 31.9 g/dl (31.0-35.0); Mean Corpuscular Hemoglobin 22.8 pg (27.0-33.0); Mean Corpuscular Volume 71.6 fL (80.0-98.0); Mean Platelet Volume 12.3 fL (9.4-12.3); Monocytes Absolute Auto 0.3 X10*3/uL (0.1-1.2); Monocytes Percent Auto 5.6 % (2-11); Neutrophils Absolute Auto 3.7 x10*3/uL (2.0-8.3); Neutrophils Percent Auto 66.5 % (45-73); Platelet Count 238 X10*3/uL (160-400); Red Blood Count 5.91 X10*6/uL (4.20-5.50); White Blood Count 5.5 X10*3/uL (4.8-10.8)
[2022-12-24 17:20] LABS: Prothrombin Time 12.1 SEC (11.1-13.3)
[2022-12-24 17:28] LABS: Alanine Aminotransferase 34 U/L (0-31); Albumin Level 4.3 g/dL (3.5-5.0); Alkaline Phosphatase 74 U/L (39-117); Anion Gap 12 (12-20); Aspartate Amino Transferase 15 U/L (5-31); Bilirubin Total 0.8 mg/dL (0.0-1.0); Blood Urea Nitrogen 13 mg/dL (9-16); Calcium 9.3 mg/dL (8.4-10.2); Carbon Dioxide 25 mmol/L (22-29); Chloride 108 mmol/L (96-108); Creatinine Clr Calc Pharmacy 47.7; Estimated Glomerular Filt Rate > 60; Glucose Random 103 mg/dL (60-115); Lipase 35 U/L (8-78); Magnesium 2.4 mg/dL (1.6-2.6); Potassium 4.2 mmol/L (3.3-5.1); Sodium 141 mmol/L (135-145); Total Protein 7.2 g/dL (6.5-8.0)
[2022-12-24 17:42] LABS: Troponin-I High Sensitivity < 2.7 ng/L (<3.5-17.0)
[2022-12-24 19:42] VITALS: BP 174/85; PULSE 64; RESP 18; O2SAT 99
--- OUTSIDE RECORDS SUMMARY | 2022-12-24 20:10 | XMS_ITS | Continuity of Care Document ---
Author Name Unknown Organization [facility] Primary [facility] [place] Address [address] [place] [address]- Care Team Providers Care Parking Lot Attendant And Cashier Name Role Phone Bunny Rhodes MD, Nikos Primary Care Physician Encounter [facility] Date(s): 07/20/22 - 08/19/22 [facility] [address] [address] [place], [place] [address] Attending Physician: Admtr, [id number] Admitting Physician: Admtr, [id number] Referring Physician: Admtr, [id number] Allergies, Adverse Reactions, Alerts Substance Reaction Severity Status Nuts Active Peanuts THROAT CLOSES,ITCHING Active statins Active Immunizations Given and Recorded Vaccine Date Status Refusal Reason influenza virus vaccine, inactivated 02/23/22 Miguel rded influenza virus vaccine, inactivated 02/05/21 Miguel rded influenza virus vaccine, inactivated 03/11/20 Miguel rded zoster vaccine, inactivated 09/02/21 Recorded zoster vaccine, inactivated 02/05/21 Recorded SARS-CoV-2 (COVID-19) mRNA-1273 vaccine 07/29/21 R ecorded SARS-CoV-2 (COVID-19) mRNA-1273 vaccine 02/12/21 R ecorded SARS-CoV-2 (COVID-19) mRNA-1273 vaccine 07/23/20 R ecorded SARS-CoV-2 (COVID-19) mRNA-1273 vaccine 06/25/20 R ecorded pneumococcal 23-valent vaccine 1 01/20/21 Given Hepatitis A-Hepatitis B Vaccine 2 06/25/10 Given Hepatitis A-Hepatitis B Vaccine 3 11/28/09 Given Hepatitis A-Hepatitis B Vaccine 4 10/29/09 Given Meningococcal Conjugate Vaccine 5 11/28/09 Given Typhoid Vaccine, Inactivated 11/28/09 Given Yellow Fever Vaccine 10/29/09 Given Poliovirus Vaccine, Inactivated 10/29/09 Given 1Result Comment: [facility]# [id number] 2Admin Note: twinrix #3 3Admin Note: twiinrix #2 4Admin Note: TWINRIX #1 5Admin Note: menactra Medications aspirin 81 mg oral tablet, chewable 81 mg, By Mouth, Daily, Refills 0, Maintenance, 09/22/18 16:15:52 EDT Start Date: 09/22/18 Status: Ordered atorvastatin 20 mg oral tablet 1 tablet = 20 mg, By Mouth, Daily, # 90 tablet, 3 Refills, Maintenance, 01/19/22 9:25:00 EDT, Tablet, Partial fill upon patient request if the prescription is for a schedule II opioid drug., 155, cm,01/19/22 9:22:00 EDT, Height, 51.8, kg, 10/23/21 15... Start Date: 01/19/22 Stop Date: 01/14/23 Status: Ordered Boostrix (Tdap) intramuscular suspension 0.5 mL, Intramuscular, Once, # 5 mL, 0 Refills, Soft Stop, 01/19/22 9:30:00 EDT, Suspension, Partial fill upon patient request if the prescription is for a schedule II opioid drug. Start Date: 01/19/22 Status: Ordered Calcium 500+D 1 tablet, 2 times a day, 0 Refills, Maintenance, 07/16/16 14:50:55 Start Date: 07/16/16 Status: Ordered Problem List Condition Confirmation Course Effective Dates Status H ealth Status Informant Constipation Confirmed Active Duodenitis Confirmed Active Expressive aphasia Confirmed Active Gastritis Confirmed Active History of CVA with residual deficit Confirmed Active Hyperlipidemia Confirmed Active Macromastia Confirmed Active Osteoporosis Confirmed Active Colon polyp Confirmed Active Osteoporosis, postmenopausal Confirmed Active Retinal detachment Confirmed Active Social History Social History Type Response Smoking Status Never (less than 100 in lifetime) entered on: 10/25/20 Sex Female Note * Event Display: Non BH Lab Results Authored Date: MG Breast Views * Event Display: MM Mammogram Authored Date: Patient Care team information Care Team Personnel Name: Gayle Erickson RN Position: S RN Member Role: Primary Care Nurse Name: Nikos Dinh MD Position: [facility] Primary Care Physician Member Role: PCP Address: Address: [address] [place] [phone]- Name: Marlene Roman RN Position: S RN Member Role: Primary Care Nurse Name: Ashley Palacio RN Position: [facility] RN Supv Member Role: Primary Care Nurse Care Team Related Persons Name: LYNETTE LUCAS Name: NICOLLE CAMPOS Address: home [address] [place] [address] Name: BONITA GRAHAM
--- OUTSIDE RECORDS SUMMARY | 2022-12-24 20:11 | XMS_ITS | Continuity of Care Document ---
Author Name Unknown Organization [facility] Primary [facility] [place] Address [address] [place] [address]- Care Team Providers Care Potato Spotter Name Role Phone Nikos Dinh MD Primary Care Physician Encounter [facility] Date(s): 04/21/22 - 08/19/22 [facility] [address] [address] [place], [place] [address] Attending Physician: Nikos Dinh MD Allergies, Adverse [...] Poliovirus Vaccine, Inactivated 10/29/09 Given 1Result Comment: [facility]# [id number] 2Admin Note: twinrix #3 3Admin Note: twiinrix [...] in lifetime) entered on: 10/25/20 Sex Female Patient Care team information Care Team Personnel Name: Gayle Erickson RN Position: S RN Member Role: Primary Care Nurse Name: Nikos Dinh MD Position: S Primary Care Physician Member Role: PCP Address: Address: [address] [place] [phone]- Name: Marlene Roman RN Position: S RN Member Role: Primary Care Nurse Name: Ashley Palacio RN Position: S RN Supv Member Role: Primary Care Nurse Care Team Related Persons Name: LYNETTE LUCAS Name: NICOLLE CAMPOS Address: home [address] [place] [id number] Name: BONITA GRAHAM
[2022-12-24 20:17] VITALS: BP 157/75; PULSE 56; RESP 16; TEMP 36.8; O2SAT 99
--- NOTE | 2022-12-24 20:19 | MHC.EDTECH ---
This Tech assumed care of this Pt. Pt changed into hospital gown and placed on slide forming machine tender. Vital signs done
== END 2022-12-24 22:08 | disposition home or self-care (01) ==
PROVIDERS: Physician Assistant Medical; Emergency Provider Student in an Organized Health Care Education/Training Program; PCP Internal Medicine
DX: R07.89 Other chest pain (principal); M94.0 Chondrocostal junction syndrome [Tietze]; Z79.899 Other long term (current) drug therapy
CPT/HCPCS: 36415; 71046; 71100; 80053; 83690; 83735; 84484; 85025; 85610; 93005; 99284

== ENCOUNTER 2023-03-30 14:35 | Outpatient (AMB) | payer MEDICARE, OTHER, SELFPAY ==
[2023-03-30 14:36] VITALS: BP 120/82; PULSE 69; O2SAT 98; BMI 21.4
--- NOTE | 2023-03-30 14:36 | MHC.PC.OV ---
Vital Signs 03/30/23 14:36 Height 5 ft 1 in Weight 113 lb 4 oz BMI 21.4 BP 120/82 Blood Pressure Location Lt brachial Position Sitting Pulse 69 Pulse Source Pulse Oximeter Pulse Oximetry (%) 98 Oxygen Delivery Method Room Air Intake Visit Reasons: blood in stool Health Type Technician Required: No Accompanied by: Self / Same As Patient Allergies peanut [PEANUT] Allergy (Severe, Verified 03/30/23 15:24) ANAPHYLAXIS Medication List - Last Reconciled 03/30/23 by Dieudonne Guerrero MD ascorbic acid (vitamin C) 100 mg PO DAILY aspirin 81 mg PO DAILY atorvastatin 40 mg PO BEDTIME 90 days cholecalciferol (vitamin D3) 50 mcg PO DAILY Tobacco use date assessed: 03/30/23 Fall risk assessment: No Falls in past year Last assessed Fall Risk: 03/30/23 Dental Screening Dental Screen Date: 03/30/23 Did you have a dental visit in the last 12 months?: Yes Did you have a dental problem in the last 6 months where you did not have access to dental care?: No Was dental information given to patient?: Patient has dentist HPI blood in stool HPI Details Patient comes in today for further evaluation of the presence of blood in her stool, which she first reportedly noticed about 2 weeks ago She denies any rectal pain or abdominal pain Admits to feeling constipated more than usual lately Denies any nausea, vomiting and denies any bowel issues lately other than her recent constipation States that she had an EGD and colonoscopy done last year and was advised that she has gastritis and duodenitis and is concerned that her recent blood in her stool may be from her stomach She denies any fever, headaches or dizziness Denies any chest pains, no SOB noted PFSH Medical History Pre-op evaluation Epistaxis Aphasia Dyslipidemia Osteoporosis Physical exam Surgical History Hx of colonoscopy History of esophagogastroduodenoscopy (EGD) H/O bilateral breast reduction surgery Family History Father CVD (cardiovascular disease) Mother Cancer Daughter No problems noted. Social History Housing: Apartment Alcohol intake: never Patient Tobacco Use Status: Never used Tobacco e-Cigarette/Vaping Use: Never Used Second Hand Smoke Exposure: No service: No Current occupational status: unemployed and disabled Cognitive needs: No Hearing needs: No Vision needs: Yes Questionnaire PHQ-9 Over the last 2 weeks, how often have you been bothered by any of the following problems? 1. Little interest or pleasure in doing things: not at all 2. Feeling down, depressed, or hopeless: not at all 3. Trouble falling or staying asleep, or sleeping too much: not at all 4. Feeling tired or having little energy: not at all 5. Poor appetite or overeating: not at all 6. Feeling bad about yourself - or that you are a failure or have let yourself or your family down: not at all 7. Trouble concentrating on things, such as reading the newspaper or watching television: not at all 8. Moving or speaking so slowly that other people could have noticed. Or the opposite - being so fidgety or restless that you have been moving around a lot more than usual: not at all 9. Thoughts that you would be better off or of hurting yourself in some way: not at all Total score: 0 Depression Screening Interpretation: Negative Depression Screening Done: Yes 99045 - PHQ-9 Billing: Yes Source: Developed by Drs. Juan Ying, Caterina Maldonado, Andre Henley and colleagues, with an educational jamaal from [employer]. Thrive Questionnaire Date Thrive assessed: 03/30/23 I am a: Patient What is your living situation today?: I have a steady place to live Within the past 12 months, did the food you bought not last and you didn't have the money to get more?: Never true Within the past 12 months, did you worry whether your food would run out before you got money to buy more?: Never true Do you have trouble paying for medicines?: No Do you have trouble getting transportation to medical appointments?: No Do you have trouble paying your heating and electricity bill?: No Do you have trouble taking care of your child, family member or friend?: No Do you have trouble with day-to-day activities such as bathing, preparing meals, shopping, managing finances, etc.?: No Are you currently unemployed and looking for a job?: No Are you interested in more education?: No Please select the resources that you would like help with: None Currently or been in a relationship where the following occur: no concerns reported AUDIT C Alcohol Use Questionnaire (AUDIT-C) 1. How often do you have a drink containing alcohol?: Never Total Score: 0 Score Reviewed/Action Taken: Yes NATALIA-7 AMB Questionnaire NATALIA-7 Date NATALIA - 7 assessed: 03/30/23 Feeling nervous, anxious, or on edge: 0 = Not at all Not being able to stop or control worryin = Not at all Worrying too much about different things: 0 = Not at all Trouble relaxin = Not at all Being so restless that it is hard to sit still: 0 = Not at all Becoming easily annoyed or irritable: 0 = Not at all Feeling afraid as if something awful might happen: 0 = Not at all Total NATALIA-7 score (0-4 normal; 5-9 mild; 10-14 moderate; 15-21 severe): 0 Source: Developed by Drs. Juan Ying, Caterina Maldonado, Andre Henley and colleagues, with an educational jamaal from [employer]. Review of Systems Const Denies fatigue, Denies fever(s) and Denies headache(s) ENT Denies dysphagia, Denies dizziness, Denies headache(s), Denies odynophagia and Denies sore throat Card Denies chest pain, Denies palpitations and Denies dyspnea Resp Denies cough and Denies dyspnea GI Denies abdominal pain, Reports hematochezia (on and off lately), Reports constipation (increased recently), Denies dysphagia, Denies heartburn, Denies diarrhea, Denies nausea, Denies odynophagia and Denies vomiting Denies difficulty voiding and Denies dysuria Neuro Denies dizziness and Denies headache(s) Endo Denies fatigue and Denies palpitations Physical exam (Primary Care) Vital Signs: Last Vital Signs Pulse 69 03/30/23 14:36 BP 120/82 03/30/23 14:36 Pulse Ox 98 03/30/23 14:36 Oxygen Delivery Method Room Air 03/30/23 14:36 BMI result Body Mass Index 21.4 Tobacco/Smoking Status: Tobacco use Status Tobacco use date assessed 03/30/23 03/30/23 14:38 Patient Tobacco Use Status Never used Tobacco 03/30/23 14:38 e-Cigarette/Vaping Use Never Used 03/30/23 14:38 PHQ-9: PHQ-9 Score PHQ-9: Total score 0 03/30/23 15:28 Depression Screening Interpretation: Negative Thrive Assessment: Date of Thrive Assessment Date Thrive assessed 03/30/23 03/30/23 14:38 Currently or been in a relationship where the following occur: no concerns reported Const General: no acute distress and alert Neck Neck: Yes no lymphadenopathy and Yes supple Resp Auscultation: clear to auscultation bilaterally, no rales and no wheezes Cardio Rate: regular rate Rhythm: regular rhythm Heart sounds: no murmurs GI Palpation (GI): Soft to palpation, nontender and No hepatosplenomegaly present Extrem General: Yes no clubbing, cyanosis or edema Assessment and Plan Assessment & Plan (1) Blood in stool: Code(s): K92.1 - Melena Plan: Discussed that this is likely due to her internal hemorrhoids, which were noted to be present on her colonoscopy done last year (2021) Advised that her recent constipation may have triggered her symptoms She has no abdominal pain lately so advised that her gastritis is probably not the reason for the recent blood in her stool, which would have been darker or black in color Will send her for some labs TRAVIS for further evaluation, especially to check her H/H, although doubtful that her recent rectal bleeding could have been significant enough to affect her blood count Will start her on Senna 8.6 mg 2 tablets QD PRN and patient is encouraged to increase her oral fluids and dietary fiber Plan To return as scheduled in May 2023 for her annual physical examination with her PCP Orders: Orders Complete Blood Count Auto Diff 03/30/23 I10 - Essential (primary) hypertension, K92.1 - Melena Comprehensive Met. Panel 03/30/23 K92.1 - Melena UA CC w/rflx Micro + Cult 03/30/23 R30.0 - Dysuria Medications: New sennosides (senna) 17.2 mg (2 x 8.6 mg) PO BEDTIME PRN 60 tabs 2RF constipation Coding Level of Care Code Est Pt Level 3 (94873) Diagnoses Blood in stool K92.1
== END 2023-03-30 15:52 | disposition home or self-care (01) ==
PROVIDERS: PCP Internal Medicine; Visit Provider Internal Medicine
DX: K92.1 Melena (principal)
CPT/HCPCS: 99213

== ENCOUNTER 2023-03-30 15:51 | Outpatient (REF) | payer MEDICARE, OTHER, SELFPAY ==
[2023-03-30 16:05] LABS: MANUAL DIFF FLAG NO
[2023-03-30 17:07] LABS: Basophils Percent Auto 0.2 % (0-2); Eosinophils Percent Auto 0.4 % (0-4); Hematocrit 42.3 % (37.0-47.0); Hemoglobin 13.4 g/dl (12.0-16.0); Lymphocytes Absolute Auto 1.5 X10*3/uL (1.2-4.9); Lymphocytes Percent Auto 29.3 % (20-40); Mean Corpuscular HGB Conc 31.7 g/dl (31.0-35.0); Mean Corpuscular Hemoglobin 22.8 pg (27.0-33.0); Mean Corpuscular Volume 71.8 fL (80.0-98.0); Mean Platelet Volume 11.8 fL (9.4-12.3); Monocytes Absolute Auto 0.3 X10*3/uL (0.1-1.2); Neutrophils Absolute Auto 3.3 x10*3/uL (2.0-8.3); Neutrophils Percent Auto 64.1 % (45-73); Platelet Count 259 X10*3/uL (160-400); Red Blood Count 5.89 X10*6/uL (4.20-5.50); Red Cell Distribution Width 16.6 % (11.0-16.0); White Blood Count 5.2 X10*3/uL (4.8-10.8)
[2023-03-30 17:10] LABS: Appearance Urine Clear; Color Urine Yellow; Glucose Urine UA Negative (Negative); Leukocyte Esterase Urine Trace (Negative); Nitrite Urine Negative (Negative); Specific Gravity - Urine 1.015 (1.005-1.025); UMIC TRIGGER UACC YES; Urine Blood Negative (Negative); Urine Ketones 15 mg/dL (Negative); Urine Protein Negative (Neg-Trace)
[2023-03-30 17:17] LABS: Bacteria Urine None Seen (None Seen); Hyaline Casts Urine 0-2 /LPF (0-2); RBC Urine 0-2 /HPF (0-2); Squamous Epithelial Cell Urine 0-2 /HPF (0-2); WBC Urine 0-5 /HPF (0-5)
[2023-03-30 17:31] LABS: Alanine Aminotransferase 13 U/L (0-31); Albumin Level 4.2 g/dL (3.5-5.0); Alkaline Phosphatase 60 U/L (39-117); Anion Gap 13 (12-20); Aspartate Amino Transferase 14 U/L (5-31); Bilirubin Total 0.7 mg/dL (0.0-1.0); Blood Urea Nitrogen 12 mg/dL (9-16); Calcium 9.2 mg/dL (8.4-10.2); Carbon Dioxide 24 mmol/L (22-29); Chloride 109 mmol/L (96-108); Estimated Glomerular Filt Rate > 60; Glucose Random 86 mg/dL (60-115); Potassium 3.9 mmol/L (3.3-5.1); Sodium 142 mmol/L (135-145); Total Protein 7.1 g/dL (6.5-8.0)
== END 2023-03-30 15:52 | disposition home or self-care (01) ==
LOC: HO.LAB 15:51
PROVIDERS: PCP Internal Medicine; Visit Provider Internal Medicine
DX: K92.1 Melena (principal); I10 Essential (primary) hypertension
CPT/HCPCS: 36415; 80053; 81001; 85025

== ENCOUNTER 2023-04-27 12:54 | Outpatient (REF) | payer MEDICARE, OTHER, SELFPAY ==
--- NOTE | ~2023-04-27 | MM_ITS ---
EXAMINATION: BONE DENSITOMETRY CLINICAL INDICATION: Osteoporosis. COMPARISON: Previous BD dated 04/23/2021 and baseline BD dated 11/17/2006. TECHNIQUE: Using a [employer] DXA System (software version: 13.1) manufactured by [employer], dual-energy x-ray absorptiometry was performed of the lumbar spine and left hip. The images are of good technical quality. Summary results are attached. FINDINGS: LEFT FEMUR, NECK: Current: BMD 0.769 g/cm2, Z-score 0.2, T-score -1.9, osteopenia. Prior: BMD 0.800 g/cm2. Baseline: BMD 0.854 g/cm2. LEFT FEMUR, TOTAL: Current: BMD 0.722 g/cm2, Z-score -0.3, T-score -2.3, osteopenia, 12.6% decrease from previous, 22.0% decrease from baseline (<5% change is not significant). Prior: BMD 0.826 g/cm2. Baseline: BMD 0.926 g/cm2. AP SPINE L1-L4: Current: BMD 0.766 g/cm2, Z-score -1.3, T-score -3.4, osteoporosis, 4.8% decrease from previous, 13.9% decrease from baseline (<5% change is not significant). Prior: BMD 0.805 g/cm2. Baseline: BMD 0.890 g/cm2. IDENTIFIED RISK FACTORS: Early menopause, osteoporosis, secondary osteoporosis. HISTORY OF FRACTURE: None listed. MEDICATIONS: Calcium, vitamin D, bisphosphonate. MM/XR DEXA axial skeleton IMPRESSION: 1. DIAGNOSIS: Osteoporosis based on the lowest T-score value of -3.4 in the lumbar spine applying World Health Organization criteria. 2. 10-YEAR FRACTURE RISK PREDICTION, FRAX: According to the guidelines, FRAX calculation should only be performed on patients in the osteopenia bone density category. Therefore, FRAX was not performed on this patient. 3. Treatment Recommendations: NOF guidelines recommend consideration for treatment in postmenopausal women and men age 50 and older presenting with the following: -A hip or vertebral (clinical or morphometric) fracture. -T-score less than or equal to -2.5 at the femoral neck or spine after appropriate evaluation to exclude secondary causes. -Low bone mass at the hip or spine and a 10-year fracture probability by FRAX of greater than or equal to 3% for hip fracture or greater than or equal to 20% for major osteoporotic fracture based on the [place] adapted WHO algorithm. 4. Other Recommendations: All treatment decisions require clinical judgment and consideration of individual patient factors, including patient preferences, comorbidities, previous drug use, risk factors not captured in the FRAX model (e.g. frailty, falls, vitamin D deficiency, increased bone turnover, interval significant decline in bone density) and possible under or overestimation of fracture risk by FRAX. Additional medical evaluation for secondary cause of low bone mineral density may be appropriate. FUTURE SCAN RECOMMENDATION: People with diagnosed cases of osteoporosis or at high risk for fracture should have regular bone mineral density tests. For patients eligible for Medicare, routine testing is allowed once every 2 years. The testing frequency can be increased to one year for patients who have rapidly progressing disease, those who are receiving or discontinuing medical therapy to restore bone mass, or have additional risk factors.
== END 2023-04-27 12:55 | disposition home or self-care (01) ==
LOC: HO.MAMMO 12:54
PROVIDERS: PCP Internal Medicine; Visit Provider Internal Medicine Endocrinology, Diabetes & Metabolism
DX: Z13.820 Encounter for screening for osteoporosis (principal); Z78.0 Asymptomatic menopausal state; M81.0 Age-related osteoporosis without current pathological fracture
CPT/HCPCS: 77080

== ENCOUNTER 2023-06-02 07:53 | Outpatient (AMB) | payer MEDICARE, OTHER, SELFPAY ==
[2023-06-02 08:07] VITALS: BP 134/70; BMI 21.7
--- NOTE | 2023-06-02 08:07 | MHC.PC.OV ---
Vital Signs 06/02/23 08:07 Height 5 ft 1 in Weight 115 lb BMI 21.7 BP 134/70 Blood Pressure Location Lt brachial Position Sitting Intake Visit Reasons: physical Intake Note: Patient here for a physical exam Criminal Justice Social Worker Required: No Accompanied by: Self / Same As Patient Allergies peanut [PEANUT] Allergy (Severe, Verified 06/02/23 08:19) ANAPHYLAXIS Medication List - Last Reconciled 06/02/23 by Melania Reynoso MD ascorbic acid (vitamin C) 100 mg PO DAILY aspirin 81 mg PO DAILY atorvastatin 40 mg PO BEDTIME 90 days cholecalciferol (vitamin D3) 50 mcg PO DAILY sennosides (senna) 17.2 mg (2 x 8.6 mg) PO BEDTIME PRN Tobacco use date assessed: 06/02/23 Fall risk assessment: No Falls in past year Last assessed Fall Risk: 06/02/23 Dental Screening Dental Screen Date: 06/02/23 Did you have a dental visit in the last 12 months?: Yes Did you have a dental problem in the last 6 months where you did not have access to dental care?: No Was dental information given to patient?: Patient has dentist HPI HPI Comments History of Present Illness Details This is a 72-year-old female that comes for her physical exam. 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 Last mammogram was July 2022 and was normal. Colonoscopy done 2021. No need for Pap smear due to age. Denies any chest pain or shortness of breath. No fever or cough. No change in bowel or bladder habits. Bone density done 04/27/2023 showing osteoporosis and she will give the results to her edge blacker. [facility] Medical History (Updated 06/02/23 @ 08:38 by Melania Reynoso MD) Pre-op evaluation Epistaxis Aphasia Dyslipidemia Osteoporosis Physical exam Surgical History Hx of colonoscopy History of esophagogastroduodenoscopy (EGD) H/O bilateral breast reduction surgery Family History Father CVD (cardiovascular disease) Mother Cancer Daughter No problems noted. Social History Housing: Apartment Alcohol intake: never Patient Tobacco Use Status: Never used Tobacco e-Cigarette/Vaping Use: Never Used Second Hand Smoke Exposure: No service: No Current occupational status: unemployed and disabled Cognitive needs: No Hearing needs: No Vision needs: Yes Questionnaire PHQ-9 Over the last 2 weeks, how often have you been bothered by any of the following problems? 1. Little interest or pleasure in doing things: not at all 2. Feeling down, depressed, or hopeless: not at all 3. Trouble falling or staying asleep, or sleeping too much: not at all 4. Feeling tired or having little energy: not at all 5. Poor appetite or overeating: not at all 6. Feeling bad about yourself - or that you are a failure or have let yourself or your family down: not at all 7. Trouble concentrating on things, such as reading the newspaper or watching television: not at all 8. Moving or speaking so slowly that other people could have noticed. Or the opposite - being so fidgety or restless that you have been moving around a lot more than usual: not at all 9. Thoughts that you would be better off or of hurting yourself in some way: not at all Total score: 0 Depression Screening Interpretation: Negative Depression Screening Done: Yes 34471 - PHQ-9 Billing: Yes Source: Developed by Drs. Juan Ying, Caterina Maldonado, Andre Henley and colleagues, with an educational jamaal from [employer]. Thrive Questionnaire Date Thrive assessed: 06/02/23 I am a: Patient What is your living situation today?: I have a steady place to live Within the past 12 months, did the food you bought not last and you didn't have the money to get more?: Never true Within the past 12 months, did you worry whether your food would run out before you got money to buy more?: Never true Do you have trouble paying for medicines?: No Do you have trouble getting transportation to medical appointments?: No Do you have trouble paying your heating and electricity bill?: No Do you have trouble taking care of your child, family member or friend?: No Do you have trouble with day-to-day activities such as bathing, preparing meals, shopping, managing finances, etc.?: No Are you currently unemployed and looking for a job?: No Are you interested in more education?: No Please select the resources that you would like help with: None Currently or been in a relationship where the following occur: no concerns reported THRIVE Score: 0 AUDIT C Alcohol Use Questionnaire (AUDIT-C) 1. How often do you have a drink containing alcohol?: Never Total Score: 0 Score Reviewed/Action Taken: No NATALIA-7 AMB Questionnaire NATALIA-7 Date NATALIA - 7 assessed: 06/02/23 Feeling nervous, anxious, or on edge: 0 = Not at all Not being able to stop or control worryin = Not at all Worrying too much about different things: 0 = Not at all Trouble relaxin = Not at all Being so restless that it is hard to sit still: 0 = Not at all Becoming easily annoyed or irritable: 0 = Not at all Feeling afraid as if something awful might happen: 0 = Not at all Total NATALIA-7 score (0-4 normal; 5-9 mild; 10-14 moderate; 15-21 severe): 0 Source: Developed by Drs. Juan Ying, Caterina Maldonado, Andre Henley and colleagues, with an educational jamaal from [employer]. NATALIA-7 Assessment Billing NATALIA-7 Assessment Tool: NATALIA-7 Assessment 78982 Review of Systems Const All systems reviewed & are unremarkable except as noted in HPI and below Eyes Reports no additional complaints, Denies change in vision and Denies other visual disturbances Card Denies chest pain at rest, Denies chest pain with activity, Denies edema, Denies irregular heart rhythm, Denies claudication, Denies dyspnea, Denies dyspnea on exertion, Denies orthopnea, Denies paroxysmal nocturnal dyspnea and Denies slow heart rate Resp Denies cough, Denies dyspnea and Denies dyspnea on exertion GI Denies abdominal pain, Denies change in bowel habits, Denies excessive flatus, Denies nausea and Denies vomiting Denies urinary incontinence, Denies urinary hesitancy and Denies urinary urgency Musc Denies abnormal gait, Denies atrophy, Denies deformity and Denies limited range of motion Skin/Breast Denies bleeding lesions, Denies changing lesions and Denies rash Neuro Denies abnormal gait, Denies behavioral changes, Denies confusion and Denies lack of coordination Psych Denies behavioral changes and Denies confusion Physical exam (Primary Care) Vital Signs: Last Vital Signs BP 134/70 06/02/23 08:07 BMI result Body Mass Index 21.7 Tobacco/Smoking Status: Tobacco use Status Tobacco use date assessed 06/02/23 06/02/23 08:12 Patient Tobacco Use Status Never used Tobacco 06/02/23 08:12 e-Cigarette/Vaping Use Never Used 06/02/23 08:12 PHQ-9: PHQ-9 Score PHQ-9: Total score 0 06/02/23 08:12 Depression Screening Interpretation: Negative Thrive Assessment: Date of Thrive Assessment Date Thrive assessed 06/02/23 06/02/23 08:12 Currently or been in a relationship where the following occur: no concerns reported Const General: No confusion Orientation/consciousness: patient oriented x3 and No confusion HENMT Head: Yes normal to inspection, Yes normocephalic and Yes atraumatic Ears: external ears normal Eyes General: appearance normal, both eyes and all related structures Eyelids: Yes eyelids normal Conjunctivae: conjunctivae normal Neck Neck: Yes normal visual inspection and Yes supple Resp Effort & Inspection: normal respiratory effort Auscultation: clear to auscultation bilaterally Cardio Jugular venous distension: no JVD Rate: regular rate Rhythm: regular rhythm Heart sounds: S1 normal heart sound present and S2 normal heart sound present GI Inspection: Yes normal to inspection Palpation (GI): Soft to palpation and nontender Auscultation: normal bowel sounds Skin General skin exam: no rashes or lesions noted Neuro General: patient oriented x3, no focal motor deficits and No confusion Speech: Expressive aphasia present Extrem General: Yes full ROM Psych Appearance: grossly normal Assessment and Plan Assessment & Plan (1) Physical exam: Code(s): Z00.00 - Encounter for general adult medical examination without abnormal findings Plan: Repeat in a year. 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 Orders: Orders Lipid Panel Today E78.5 - Hyperlipidemia, unspecified Comprehensive [place]. Panel Fast Today E78.5 - Hyperlipidemia, unspecified Vitamin D 25-OH Total Today E55.9 - Vitamin D deficiency, unspecified, M81.0 - Age-related osteoporosis without current pathological fracture Coding Level of Care Code Est Pt Prev Care >65y(09667) Diagnoses Physical exam Z00.00 Cerebral infarction involving left middle cerebral artery I63.512 Additional Codes NATALIA-7 Assessment Billing - NATALIA-7 Assessment Tool: NATALIA-7 Assessment 16143 ([id number]) Time Spent (min) 32
== END 2023-06-02 08:37 | disposition home or self-care (01) ==
PROVIDERS: Visit Provider Internal Medicine
DX: Z00.00 Encounter for general adult medical examination without abnormal findings (principal); I63.512 Cerebral infarction due to unspecified occlusion or stenosis of left middle cerebral artery
CPT/HCPCS: 99397

== ENCOUNTER 2023-06-03 07:48 | Outpatient (REF) | payer MEDICARE, OTHER, SELFPAY ==
[2023-06-03 09:05] LABS: Alanine Aminotransferase 19 U/L (0-31); Alkaline Phosphatase 71 U/L (39-117); Anion Gap 12 (12-20); Aspartate Amino Transferase 17 U/L (5-31); Bilirubin Total 0.7 mg/dL (0.0-1.0); Blood Urea Nitrogen 14 mg/dL (9-16); Calcium 9.5 mg/dL (8.4-10.2); Carbon Dioxide 26 mmol/L (22-29); Chloride 109 mmol/L (96-108); Cholesterol 147 mg/dL (<200); Estimated Glomerular Filt Rate > 60; Glucose Fasting 90 mg/dL (60-99); HDL Cholesterol 51 mg/dL (>40); LDL Cholesterol Calculated 86 mg/dL (<100); Potassium 4.8 mmol/L (3.3-5.1); Sodium 142 mmol/L (135-145); Total Protein 7.1 g/dL (6.5-8.0); Triglycerides 52 mg/dL (<150)
[2023-06-03 09:24] LABS: Vitamin D 25-OH Total 33.6 ng/mL (>30)
== END 2023-06-03 07:49 | disposition home or self-care (01) ==
LOC: HO.LAB 07:48
PROVIDERS: Visit Provider Internal Medicine
DX: E78.5 Hyperlipidemia, unspecified (principal); E55.9 Vitamin D deficiency, unspecified
CPT/HCPCS: 36415; 80053; 80061; 82306

== ENCOUNTER 2023-06-08 12:35 | Outpatient (AMB) | payer MEDICARE, OTHER, SELFPAY ==
--- NOTE | 2023-06-08 12:56 | AM.OFFVISNUR ---
Intake Intake Visit Reasons: TD Vaccine Allergies peanut [PEANUT] Allergy (Severe, Verified 06/02/23 08:19) ANAPHYLAXIS Immunizations tetanus-diphtheria toxoids-Td 2 Lf unit-2 Lf unit/0.5 mL IM suspension Performing Provider: Melania Reynoso MD [facility] Administered by: Koki Canales RN on 06/08/23 13:06 Dose Route Admin Location Dispensed Lot Number Expiration Date NDC [employer] 0.5 mL IM Left Deltoid 0.5 mL [id number] 08/23/23 [address]-8 [employer] VIS Given Date VIS Provided VIS Publication Date 06/08/23 Single Vaccine 20 Eligibility Eligibility Date Funding Source Not VFC Eligible 06/08/23 State funds Coding Assessment & Plan Assessment & Plan Orders: Orders Td State Immunization Today Z23 - Encounter for immunization
== END 2023-06-08 13:10 | disposition home or self-care (01) ==
PROVIDERS: PCP Internal Medicine; Visit Provider Internal Medicine
DX: Z23 Encounter for immunization (principal)
CPT/HCPCS: 90471; 90714

== ENCOUNTER 2023-06-14 07:25 | Outpatient (AMB) | payer MEDICARE, OTHER, SELFPAY ==
--- NOTE | 2023-06-14 07:29 | A.OFFVIS_ITS ---
Intake Vital Signs 06/14/23 07:31 Height 5 ft 1 in Weight 117 lb BMI 22.1 BP 151/75 H Blood Pressure Location Lt brachial Position Sitting Pulse 71 Intake Visit Reasons: Follow up Melena Intake Note: Lili presents in the office as a follow up to melena. CC: She states that she when she goes to the bathroom depending on what she eats (like rice) she gets hemorrhoids and it is hard for her to pass a bowel movement. She feels like the senna takes it she was told 12 days but she still has some. Precision Lathe Operator Required: No Allergies peanut [PEANUT] Allergy (Severe, Verified 06/14/23 07:31) ANAPHYLAXIS Medication List - Last Reconciled 06/14/23 by Lillie Lockett PA-C ascorbic acid (vitamin C) 100 mg PO DAILY aspirin 81 mg PO DAILY atorvastatin 20 mg PO DAILY cholecalciferol (vitamin D3) 50 mcg PO DAILY sennosides (senna) 17.2 mg (2 x 8.6 mg) PO BEDTIME PRN HPI HPI Comments History of Present Illness0 Details A 72 y/o female I have hemorrhoids , that are uncomfortable after BM - she has BM most days- Last seen 05/2021- EGD/ colon with polypectomy- H.pylori treated= 06/2021-REJI- negative Appetite is excellent- no problems- No N/V/D 06/03/23- AST/ALT- No nausea, vomiting, hematemesis, hematochezia fever or chills PFSH Medical History Pre-op evaluation Epistaxis Aphasia Dyslipidemia Osteoporosis Physical exam Surgical History Hx of colonoscopy History of esophagogastroduodenoscopy (EGD) H/O bilateral breast reduction surgery Family History Father CVD (cardiovascular disease) Mother Cancer Daughter No problems noted. Social History Housing: Apartment Alcohol intake: never Patient Tobacco Use Status: Never used Tobacco e-Cigarette/Vaping Use: Never Used Second Hand Smoke Exposure: No service: No Current occupational status: unemployed and disabled Cognitive needs: No Hearing needs: No Vision needs: Yes Review of Systems Const All systems reviewed & are unremarkable except as noted in HPI and below Card Denies chest pain and Denies dyspnea Resp Denies dyspnea GI Denies hematochezia Physical Exam Vital Signs: Last Vital Signs Pulse 71 06/14/23 07:31 BP 151/75 H 06/14/23 07:31 BMI result Body Mass Index 22.1 Const General: cooperative, healthy appearing, comfortable, no acute distress and anxious Orientation/consciousness: patient oriented x3 Limitations: language barrier Eyes Sclerae: sclerae normal Resp Effort & Inspection: normal respiratory effort and able to speak in complete sentences Auscultation: clear to auscultation bilaterally, no rhonchi and no wheezes Cardio Rate: regular rate Rhythm: regular rhythm Heart sounds: S1 normal heart sound present and S2 normal heart sound present GI Palpation (GI): Soft to palpation and nontender Auscultation: normal bowel sounds Rectal Exam - Female: hemorrhoids (Very small hemorrhoids/skin tag), No Excoriation present (GI), No tenderness, Visual inspection abnormal (Very small skin tag) and other (Inspection only-declined internal) Skin General skin exam: no rashes or lesions noted Neuro General: patient oriented x3 Extrem General: Yes full ROM Psych Appearance: grossly normal and well kempt Mental Status: mental status grossly normal Affect: normal affect Attitude: cooperative Thought process: Normal thought process present Thought content: Normal thought content present Insight: Good insight present (Psych) Judgement: Good judgement present (Psych) Results Reviewed Results Reviewed: 05/2021- Dr. Love Impression and Post Procedure Diagnosis: Endoscopy Findings: gastritis esophagitis duodenitis Colonoscopy Findings: polyp internal hemorrhoids Name: Lili Schuster Age/Sex: 70/F Attending: Liza Love MD : 1950 Submitted by: Liza Love MD Copies to: TRISTON GARCIA MD MR #: [id number] Status: [facility] Collected: 06/03/21 Location: [facility] Received: 06/03/21 Diagnosis A. Duodenum, biopsy: Chronic, focally active, duodenitis. B. Stomach, biopsy: - Antral-type mucosa with moderate chronic, focally active, inflammation. - Positive for H pylori. C. GE junction, biopsy: - Cardiofundic-type mucosa with moderate chronic inactive inflammation; no intestinal metaplasia seen. - Squamous mucosa within normal limits. Clinical History Pre-Op Dx: Altered bowel habits, melena Post-Op Dx: Esophagitis, gastritis, duodenitis, colon polyp Microscopic Description A-C. Microscopic sections reviewed. Immunostain for H. pylori is reactive (B). Material Received A. Duodenum bx's B. Stomach bx's C. GE junction bx's Gross Description Received in three parts. Part A: Received in formalin labeled Duodenum bx's are five glistening, semitranslucent, soft, velvety and filiform, hollingsworth-pink, irregular tissue fragments, ranging from 0.2 to 0.3 cm. in greatest dimension, which are submitted in toto in a single cassette labeled A. Part B: Received in formalin labeled Stomach bx's are two glistening, semitranslucent, soft, hollingsworth, irregular tissue fragments, each measuring 0.2 cm. in greatest dimension, which are submitted in toto in a single cassette labeled B. Part C: Received in formalin labeled GE junction bx's are two glistening, semitranslucent, soft, hollingsworth, white-pink, irregular tissue fragments, measuring 0.2 and 0.3 cm. in greatest dimension, which are submitted in toto in a single cassette labeled C. KAMERON Patient: Lili Schuster Age/Sex: 70/F MR#: [id number] Page 1 of 2 US/US abdomen comp w elastography IMPRESSION: 1. Impression: Unremarkable exam 2. Liver elastography: Slightly limited due to sampling error. In the absence of other known clinical signs, rules out compensated advanced chronic liver diseas Assessment & Plan Assessment & Plan (1) Colon polyps: Comment: Previous history of colon polyp as well as recent Colonoscopy with polypectomy- not retrieved repeat colon 5 years Code(s): K63.5 - Polyp of colon (2) Hemorrhoids: Comment: very pleasant -hemorrhoid question may have small fissure no internal exam Code(s): K64.9 - Unspecified hemorrhoids Plan: Maintain high-fiber Avoid straining Anusol suppository (3) Chronic constipation: Code(s): K59.09 - Other constipation Plan HFD Anusol Medications: New hydrocortisone acetate (Anusol-HC) 25 mg TX BEDTIME 24 days 24 ea 1RF calcium polycarbophil (FiberCon) 1,250 mg (2 x 625 mg) PO DAILY 30 days 60 tabs 3RF menthol-zinc oxide 0.44-20.6 % (Calmoseptine) 1 appl topical BID PRN 113 grams 1RF skin irritation Patient Instructions: Very pleasant 72-year-old female rectal discomfort with straining/constant Reviewed colonoscopy report 2021 Maintain HFD-literature given Avoid straining- Anusol- Calmoseptine p.r.n. Encouraged to call questions or concerns Follow-up 2 weeks for progress Coding Level of Care Code Est Pt Level 3 (37758) Diagnoses Colon polyps K63.5 Hemorrhoids K64.9 Chronic constipation K59.09 Time Spent (min) 35
[2023-06-14 07:31] VITALS: BP 151/75; PULSE 71; BMI 22.1
== END 2023-06-14 08:21 | disposition home or self-care (01) ==
PROVIDERS: PCP Internal Medicine; Visit Provider Physician Assistant
DX: K63.5 Polyp of colon (principal); K64.9 Unspecified hemorrhoids; K59.09 Other constipation
CPT/HCPCS: 99213

== ENCOUNTER → 2023-06-14 07:25 | Outpatient (BNVA) | payer MEDICARE, OTHER, SELFPAY | PROVIDERS: PCP Internal Medicine; Visit Provider Physician Assistant | DX: K63.5 Polyp of colon (principal); K64.9 Unspecified hemorrhoids; K59.09 Other constipation | CPT/HCPCS: 99212 ==

== ENCOUNTER 2023-07-06 07:26 | Outpatient (AMB) | payer MEDICARE, OTHER, SELFPAY ==
--- NOTE | 2023-07-06 07:36 | MHC.OFFVIS ---
Intake Vital Signs 07/06/23 07:41 07/06/23 08:05 Height 5 ft 1 in Weight 117 lb BMI 22.1 BP 160/76 H 128/82 Blood Pressure Location Lt brachial Lt brachial Position Sitting Sitting Pulse 68 84 Intake Visit Reasons: 2 to 3 week follow up constipation Intake Note: Patient follow up for constipation. Patient denies any GI issues, constipation is much better with new medication. Assisted Living Nursing Director Required: No Accompanied by: Self / Same As Patient Allergies peanut [PEANUT] Allergy (Severe, Verified 07/06/23 07:39) ANAPHYLAXIS Medication List - Last Reconciled 07/06/23 by Lillie Lockett PA-C ascorbic acid (vitamin C) 100 mg PO DAILY aspirin 81 mg PO DAILY atorvastatin 20 mg PO DAILY calcium polycarbophil (FiberCon) 1,250 mg (2 x 625 mg) PO DAILY 30 days cholecalciferol (vitamin D3) 50 mcg PO DAILY hydrocortisone acetate (Anusol-HC) 25 mg MS BEDTIME 24 days menthol-zinc oxide 0.44-20.6 % (Calmoseptine) 1 appl topical BID PRN sennosides (senna) 17.2 mg (2 x 8.6 mg) PO BEDTIME PRN HPI HPI Comments History of Present Illness Details Very pleasant 72-year-old female follows up after being seen for rectal discomfort with straining Reviewed colonoscopy report 2021-again today She has maintain HFD-bowels have become more regular, she is happy about She is used Anusol-and Calmoseptine p.r.n. very good response She has a good appetite she has no GI or general complaints today [facility] Medical History Pre-op evaluation Epistaxis Aphasia Dyslipidemia Osteoporosis Physical exam Surgical History Hx of colonoscopy History of esophagogastroduodenoscopy (EGD) H/O bilateral breast reduction surgery Family History Father CVD (cardiovascular disease) Mother Cancer Daughter No problems noted. Social History Housing: Apartment Alcohol intake: never Patient Tobacco Use Status: Never used Tobacco e-Cigarette/Vaping Use: Never Used Second Hand Smoke Exposure: No service: No Current occupational status: unemployed and disabled Cognitive needs: No Hearing needs: No Vision needs: Yes Review of Systems Const All systems reviewed & are unremarkable except as noted in HPI and below Card Denies chest pain and Denies dyspnea Resp Denies dyspnea GI Denies abdominal pain, Denies hematochezia, Denies nausea and Denies vomiting Physical Exam Vital Signs: Last Vital Signs Pulse 84 07/06/23 08:05 BP 128/82 07/06/23 08:05 BMI result Body Mass Index 22.1 Const General: cooperative, healthy appearing, comfortable and no acute distress Orientation/consciousness: patient oriented x3 Limitations: no limitations Eyes Sclerae: sclerae normal Resp Effort & Inspection: normal respiratory effort and able to speak in complete sentences Skin General skin exam: no rashes or lesions noted Neuro General: patient oriented x3 Extrem General: Yes full ROM Psych Appearance: grossly normal and well kempt Mental Status: mental status grossly normal Speech and movement: Normal speech and movement present and Clear speech present Affect: normal affect Attitude: cooperative Thought process: Normal thought process present Thought content: Normal thought content present Insight: Good insight present (Psych) Judgement: Good judgement present (Psych) Assessment & Plan Assessment & Plan (1) Chronic constipation: Code(s): K59.09 - Other constipation Plan: Continue bowel regimen Maintain high-fiber (2) Hemorrhoids: Comment: Rectal cream avoid straining-good response Code(s): K64.9 - Unspecified hemorrhoids Plan: Continue plan of care Medications: Refilled menthol-zinc oxide 0.44-20.6 % (Calmoseptine) 1 appl topical BID PRN 113 grams 1RF skin irritation hydrocortisone acetate (Anusol-HC) 25 mg MS BEDTIME 24 days 24 ea 3RF Patient Instructions: Continue plan of care Maintain high-fiber diet avoid straining with hemorrhoids rectal cream as needed Encouraged to call with any questions or concerns Appreciate the opportunity assist in care this pleasant patient Coding Level of Care Code Est Pt Level 3 (23345) Diagnoses Chronic constipation K59.09 Hemorrhoids K64.9 Time Spent (min) 30
[2023-07-06 07:41] VITALS: BP 160/76; PULSE 68; BMI 22.1
[2023-07-06 08:05] VITALS: BP 128/82; PULSE 84
== END 2023-07-06 09:06 | disposition home or self-care (01) ==
PROVIDERS: PCP Internal Medicine; Visit Provider Physician Assistant
DX: K59.09 Other constipation (principal); K64.9 Unspecified hemorrhoids
CPT/HCPCS: 99213

== ENCOUNTER → 2023-07-06 07:26 | Outpatient (BNVA) | payer MEDICARE, OTHER, SELFPAY | PROVIDERS: PCP Internal Medicine; Visit Provider Physician Assistant | DX: K59.09 Other constipation (principal); K64.9 Unspecified hemorrhoids | CPT/HCPCS: 99212 ==

== ENCOUNTER 2023-09-06 11:31 | Outpatient (REF) | payer MEDICARE, OTHER, SELFPAY ==
--- NOTE | ~2023-09-06 | MM_ITS ---
EXAMINATION: MM SCREENING DIGITAL BREAST TOMOSYNTHESIS, BILATERAL CLINICAL INFORMATION: Screening. Asymptomatic. The patient is status post bilateral breast reduction. COMPARISON: Mammography: This study is compared with prior exams dating back to 2019. TECHNIQUE: Digital breast tomosynthesis is performed in both the craniocaudal and mediolateral oblique views along with computer-aided detection (CAD). Synthesized 2D images are generated from the tomosynthesis. FINDINGS: There are scattered areas of fibroglandular density (ACR BI-RADS breast composition Category b). There are no significant masses, abnormal calcifications, or other abnormalities. Post reduction changes are present in each breast. There is a tissue marker present in the superior aspect of the left breast from prior benign percutaneous biopsy. MM/MM tomosynthesis screening BI IMPRESSION: No mammographic evidence of malignancy. ASSESSMENT: BI-RADS BI-RADS 2 - Benign Findings RECOMMENDATION: Routine annual mammography screening. 1 year F/U This examination should not preclude the clinical evaluation of a suspicious palpable abnormality. This patient's information was entered into a reminder system with a target due date for their next mammogram.
== END 2023-09-06 11:32 | disposition home or self-care (01) ==
LOC: HO.MAMMO 11:31
PROVIDERS: PCP Internal Medicine; Visit Provider Internal Medicine
DX: Z12.31 Encounter for screening mammogram for malignant neoplasm of breast (principal)
CPT/HCPCS: 77063; 77067

== ENCOUNTER → 2023-09-06 12:00 | Outpatient (BNV) | payer MEDICARE, OTHER, SELFPAY | PROVIDERS: PCP Internal Medicine; Visit Provider Radiology Diagnostic Radiology | DX: Z12.31 Encounter for screening mammogram for malignant neoplasm of breast (principal) | CPT/HCPCS: 77063; 77067 ==

== ENCOUNTER 2023-09-18 11:22 | Outpatient (AMB) | payer MEDICARE, OTHER, SELFPAY ==
--- OUTSIDE RECORDS SUMMARY | 2023-09-18 11:24 | XMS_ITS | Continuity of Care Document ---
Author Organization [facility] Address [address] [place] [address]- Care Team Providers Care Curtain Hemmer Automatic Name Role Phone Bunny Rhodes MD, Nikos Primary Care Physician Encounter [facility] Date(s): 03/03/23 - 04/02/23 [facility] [address] [place] [address]- Allergies, Adverse Reactions, Alerts Substance Reaction Severity [...] Poliovirus Vaccine, Inactivated 10/29/09 Given 1Result Comment: [facility]# [id number] 2Admin Note: twinrix #3 3Admin Note: twiinrix [...] Nurse Name: Nikos Dinh MD Position: S Physician - Primary Care Member Role: PCP Address: Address: [address] [place] [address]- Name: Marlene Roman RN Position: S RN Member Role: Primary Care Nurse Name: Ashley Palacio RN Position: [facility] RN Supv Member Role: Primary Care Nurse Care Team Related Persons Name: NORMA LUCASCHARMAINE Name: NICOLLE CAMPOS Address: home [address] [place] [address] Name: BONITA GRAHAM
--- OUTSIDE RECORDS SUMMARY | 2023-09-18 11:24 | XMS_ITS | Continuity of Care Document ---
Author Organization [facility] Address [address] [place] [address]- Care Team Providers Care Field Pipe Lines Supervisor Name Role Phone Bunny Rhodes MD, Nikos Primary Care Physician Encounter [facility] Date(s): 01/21/23 - 02/20/23 [facility] [address] [place], [place] [address] Attending Physician: Admrose, [id number] Admitting Physician: Admtr, [id number] Referring Physician: Admtr, [id number] Allergies, Adverse Reactions, [...] Poliovirus Vaccine, Inactivated 10/29/09 Given 1Result Comment: [facility]# [id number] 2Admin Note: twinrix #3 3Admin Note: twiinrix [...] Team Personnel Name: Gayle Erickson RN Position: [facility] RN Member Role: Primary Care Nurse Name: Nikos Dinh MD Position: [facility] Physician - Primary Care Member Role: PCP Address: Address: [address] [place] [address]- [place] Name: Marlene Roman RN Position: [facility] RN Member Role: Primary Care Nurse Name: Ashley Palacio RN Position: [facility] RN Supv Member Role: Primary Care Nurse Care Team Related Persons Name: LYNETTE LUCAS Name: NICOLLE CAMPOS Address: [address] [place] [address] Name: BONITA GRAHAM
--- OUTSIDE RECORDS SUMMARY | 2023-09-18 11:24 | XMS_ITS | Continuity of Care Document ---
Author Organization [facility] Address [address] [place] [address]- Care Team Providers Care Value Advisor Name Role Phone Bunny Rhodes MD, Nikos Primary Care Physician Encounter [facility] Date(s): 06/14/23 - 07/14/23 [facility] [address] [place] [address] Attending Physician: Arlette Garcia Admitting [...] Given 1Result Comment: [facility]# [id number] 2Admin Note: twinrix #3 3Admin Note: twiinrix [...] 07/16/16 14:50:55 Start Date: 07/16/16 Status: Ordered Forteo 600 mcg/2.4 mL subcutaneous device = 20 mcg, Subcutaneous Injection, Daily, rotate injection sites, # 2.4 mL, 11 Refills, Maintenance,06/11/23 15:59:00 EST, Solution, [facility], Partial fill upon patient request if the prescription is for a schedule II opioid drug.,... Start Date: 06/11/23 Status: Ordered Pen [place], 31 G x 5 mm BD Ultra Fine III See Instructions, # 100 each, Refills 3, Tot. Refills 3, Maintenance, use daily with Tymlos pen, 06/11/23 16:00:00 EST, Compound, 154, cm, 04/27/23 9:39:00 EST, Height, 51.8, kg, 10/23/21 15:22:00 EDT, Dry Weight Start Date: 06/11/23 Status: Ordered Problem List Condition Confirmation Course [...] Primary Care Member Role: PCP Address: Address: [address] [place] [phone]- Name: Marlene Roman RN Position: S RN Member Role: Primary Care Nurse Name: Ashley Palacio RN Position: [facility] RN Supv Member Role: Primary Care Nurse Care Team Related Persons Name: LYNETTE LUCAS Name: NICOLLE CAMPOS Address: [address] [place] [address] Name: BONITA GRAHAM
--- OUTSIDE RECORDS SUMMARY | 2023-09-18 11:25 | XMS_ITS | Continuity of Care Document ---
Author Organization [facility] Address [address] [place] [address]- Care Team Providers Care Tuber Helper Name Role Phone Bunny Rhodes MD, Nikos Primary Care Physician Encounter [facility] Date(s): 04/27/23 - 05/27/23 [facility] [address] [place] [address] Attending Physician: Arlette Garcia Admitting Physician: AdmArlette [...] Poliovirus Vaccine, Inactivated 10/29/09 Given 1Result Comment: [facility]# [id number] 2Admin Note: twinrix #3 3Admin Note: twiinrix [...] Team Personnel Name: Gayle Erickson RN Position: [facility] RN Member Role: Primary Care Nurse Name: Nikos Dinh MD Position: [facility] Physician - Primary Care Member Role: PCP Address: Address: [address] [place] [address] [place] [id number]- Name: Marlene Roman RN Position: [facility] RN Member Role: Primary Care Nurse Name: Ashley Palacio RN Position: S RN Supv Member Role: Primary Care Nurse Care Team Related Persons Name: LYNETTE LUCAS Name: NICOLLE CAMPOS Address: home [address] [place] [address] Name: BONITA GRAHAM
--- OUTSIDE RECORDS SUMMARY | 2023-09-18 11:25 | XMS_ITS | Continuity of Care Document ---
Author Organization [facility] Address [address] [place] [address]- Care Team Providers Care Engineer Systems Name Role Phone Bunny Rhodes MD, Nikos Primary Care Physician Encounter [facility] Date(s): 03/03/23 - 04/02/23 [facility] [address] [place] [address]- Allergies, Adverse Reactions, Alerts Substance Reaction Severity [...] Comment: [facility]# [id number] 2Admin Note: twinrix #3 3Admin Note: twiinrix [...] Primary Care Member Role: PCP Address: Address: [address] [place] [address]- Name: Marlene Roman RN Position: S RN Member Role: Primary Care Nurse Name: Ashley Palacio RN Position: [facility] RN Supv Member Role: Primary Care Nurse Care Team Related Persons Name: NORMA LUCASCHARMAINE Name: NICOLLE CAMPOS Address: [address] [place] [address] Name: BONITA GRAHAM
--- OUTSIDE RECORDS SUMMARY | 2023-09-18 11:25 | XMS_ITS | Continuity of Care Document ---
Author Organization [facility] Address [address] [place] [address]- Care Team Providers Care Tipple Boss Name Role Phone Bunny Rhodes MD, Nikos Primary Care Physician Encounter [facility] Date(s): 06/03/23 - 07/03/23 [facility] [address] [place] [address] Allergies, Adverse Reactions, [...] Given 1Result Comment: [facility]# [id number] 2Admin Note: twinrix #3 3Admin Note: twiinrix [...] mL, 11 Refills, Maintenance,06/11/23 15:59:00 EST, Solution, [facility], Partial fill upon patient request if the prescription is for a schedule II opioid drug.,... Start Date: 06/11/23 Status: Ordered Pen [place], 31 G x 5 mm BD Ultra [...] Care Nurse Name: Nikos Dinh MD Position: [facility] Physician - Primary Care Member Role: PCP Address: Address: [address] [place] [address]- Name: Marlene Roman RN Position: S RN Member Role: Primary Care Nurse Name: Ashley Palacio RN Position: [facility] RN Supv Member Role: Primary Care Nurse Care Team Related Persons Name: LYNETTE LCUAS Name: NICOLLE CAMPOS Address: [address] [place] [address] Name: BONITA GRAHAM
--- OUTSIDE RECORDS SUMMARY | 2023-09-18 11:25 | XMS_ITS | Continuity of Care Document ---
Author Organization [facility] Address [address] [place] [address]- Care Team Providers Care Electrical Project Manager Name Role Phone Bunny Rhodes MD, Nikos Primary Care Physician Encounter [facility] Date(s): 05/27/23 - 06/26/23 [facility] [address] [place] [address] Allergies, Adverse Reactions, Alerts [...] Vaccine, Inactivated 10/29/09 Given 1Result Comment: [facility]# [id number] 2Admin Note: twinrix #3 3Admin Note: twiinrix [...] mL, 11 Refills, Maintenance,06/11/23 15:59:00 EST, Solution, [facility], Partial fill upon patient request if the prescription is for a schedule II opioid drug.,... Start Date: 06/11/23 Status: Ordered Pen [place], 31 G x 5 mm BD Ultra [...] Care Nurse Name: Nikos Dinh MD Position: [facility] Physician - Primary Care Member Role: PCP Address: Address: [address] [place] [address]- Name: Marlene Roman RN Position: S RN Member Role: Primary Care Nurse Name: Ashley Palacio RN Position: [facility] RN Supv Member Role: Primary Care Nurse Care Team Related Persons Name: LYNETTE LUCAS Name: NICOLLE CAMPOS Address: [address] [place] [address] Name: BONITA GRAHAM
--- OUTSIDE RECORDS SUMMARY | 2023-09-18 11:25 | XMS_ITS | Continuity of Care Document ---
Author Organization [facility] Address [address] [place] [address]- Care Team Providers Care Split Leather Mosser Name Role Phone Nikos Dinh MD Primary Care Physician Encounter [facility] Date(s): 10/23/22 - 02/20/23 [facility] [address] [place], [place] [address] Attending Physician: Brianne Finch MD Admitting Physician: Brianne Finch MD Referring Physician: Nikos Dinh MD Allergies, [...] Poliovirus Vaccine, Inactivated 10/29/09 Given 1Result Comment: [facility]# [id number] 2Admin Note: twinrix #3 3Admin Note: twiinrix [...] Team Personnel Name: Gayle Erickson RN Position: [facility] RN Member Role: Primary Care Nurse Name: Nikos Dinh MD Position: [facility] Physician - Primary Care Member Role: PCP Address: Address: [address] [place] [address]- Name: Marlene Roman RN Position: S RN Member Role: Primary Care Nurse Name: Ashley Palacio RN Position: S RN Supv Member Role: Primary Care Nurse Care Team Related Persons Name: LYNETTE LUCAS Name: NICOLLE CAMPOS Address: home [address] [place] [address] Name: BONITA GRAHAM
--- OUTSIDE RECORDS SUMMARY | 2023-09-18 11:26 | XMS_ITS | Continuity of Care Document ---
Author Organization [facility] Address [address] [place] [id number]- Care Team Providers Care Fruit Harvest Worker Name Role Phone Bunny Rhodes MD, Nikos Primary Care Physician Encounter [facility] Date(s): 03/16/23 - 04/15/23 [facility] [address] [place] [id number] Attending Physician: Arlette Garcia Admitting Physician: AdmtrArlette Referring Physician: Admtr, Ar8 Allergies, Adverse Reactions, [...] Poliovirus Vaccine, Inactivated 10/29/09 Given 1Result Comment: [facility] [place]# [id number] 2Admin Note: twinrix #3 3Admin Note: twiinrix [...] Care Member Role: PCP Address: Address: [address] [place] [id number]- Name: Marlene Roman RN Position: S RN Member Role: Primary Care Nurse Name: Ashley Palacio RN Position: S RN Supv Member Role: Primary Care Nurse Care Team Related Persons Name: LYNETTE LUCAS Name: NICOLLE CAMPOS Address: [address] [address] Name: BONITA GRAHAM
--- NOTE | 2023-09-18 11:41 | MHC.OFFWIV ---
Intake Vital Signs 09/18/23 11:45 Height 5 ft 1 in Weight 117 lb 8 oz BMI 22.2 BP 112/72 Blood Pressure Location Lt brachial Position Sitting Pulse 76 Pulse Source Pulse Oximeter Pulse Oximetry (%) 96 Oxygen Delivery Method Room Air Intake Visit Reasons: EST/ lower back issues (lobby) Intake Note: Patient here for left lower back pain that started yesterday. no known injuries. pt states she is very active. Patient Tobacco Use Status: Never used Tobacco Allergies peanut [PEANUT] Allergy (Severe, Verified 09/18/23 11:54) ANAPHYLAXIS Do you need a note to return to daycare/school/sports/work: No HPI HPI Comments History of Present Illness Details Here today with complaints of right-sided low back pain. It started 1-2 days ago. Reports that she is very active, exercises daily. No overt injury or new movements prior to the onset. When she touches her right low back she can feel the area that is painful. It is to the right of her spine. Other than that she denies any red flag symptoms associated. [facility] Medical History Pre-op evaluation Epistaxis Aphasia Dyslipidemia Osteoporosis Physical exam Surgical History Hx of colonoscopy History of esophagogastroduodenoscopy (EGD) H/O bilateral breast reduction surgery Family History Father CVD (cardiovascular disease) Mother Cancer Daughter No problems noted. Social History Housing: Apartment Alcohol intake: never Patient Tobacco Use Status: Never used Tobacco e-Cigarette/Vaping Use: Never Used Second Hand Smoke Exposure: No service: No Current occupational status: unemployed and disabled Cognitive needs: No Hearing needs: No Vision needs: Yes Review of Systems Const All systems reviewed & are unremarkable except as noted in HPI and below Physical Exam Vital Signs: Last Vital Signs Pulse 76 09/18/23 11:45 BP 112/72 09/18/23 11:45 Pulse Ox 96 09/18/23 11:45 Oxygen Delivery Method Room Air 09/18/23 11:45 BMI result Body Mass Index 22.2 Const Other: Awake alert oriented, appears younger than stated age, very friendly moving about when dancing in the exam room to show me her physical activity neurovascularly intact pain with palpation over right SI joint no spinal pain with palpation skin intact Assessment & Plan Assessment & Plan (1) Instability of right SI joint: Comment: . Code(s): M53.2X8 - Spinal instabilities, sacral and sacrococcygeal region Plan: . Orders: Orders PT Evaluation and Treatment Today M53.2X8 - Spinal instabilities, sacral and sacrococcygeal region Medications: New naproxen 375 mg PO BID 14 days PRN 28 tabs 0RF pain Patient Instructions: exam consistent with SI joint dysfunction on the right side. Will prescribe for an NSAID to help with any pain or discomfort. Use sparingly and take with food. Physical therapy order has been placed. Coding Level of Care Code Est Pt Level 3 (35596) Diagnoses Instability of right SI joint M53.2X8
[2023-09-18 11:45] VITALS: BP 112/72; PULSE 76; O2SAT 96; BMI 22.2
== END 2023-09-18 12:33 | disposition home or self-care (01) ==
PROVIDERS: PCP Internal Medicine; Visit Provider Nurse Practitioner Family
DX: M53.2X8 Spinal instabilities, sacral and sacrococcygeal region (principal)
CPT/HCPCS: 99213

== ENCOUNTER 2023-09-22 12:54 | Outpatient (AMB) | payer MEDICARE, OTHER, SELFPAY ==
[2023-09-22 13:16] VITALS: BP 140/78; BMI 22.1
--- NOTE | 2023-09-22 13:16 | MHC.PC.OV ---
Vital Signs 09/22/23 13:16 09/22/23 13:49 Height 5 ft 1 in Weight 117 lb BMI 22.1 BP 140/78 H 135/80 Blood Pressure Location Lt brachial Lt brachial Position Sitting Sitting Intake Visit Reasons: back pain Intake Note: Patient here c/o low back pain Reporting Specialist Required: No Accompanied by: Self / Same As Patient Allergies peanut [PEANUT] Allergy (Severe, Verified 09/22/23 13:49) ANAPHYLAXIS Medication List - Last Reconciled 09/22/23 by Melania Reynoso MD ascorbic acid (vitamin C) 100 mg PO DAILY aspirin 81 mg PO DAILY atorvastatin 20 mg PO DAILY calcium polycarbophil (FiberCon) 1,250 mg (2 x 625 mg) PO DAILY 30 days cholecalciferol (vitamin D3) 50 mcg PO DAILY hydrocortisone acetate (Anusol-HC) 25 mg MD BEDTIME 24 days menthol-zinc oxide 0.44-20.6 % (Calmoseptine) 1 appl topical QID PRN menthol-zinc oxide 0.44-20.6 % (Calmoseptine) 1 appl topical BID PRN naproxen 375 mg PO BID PRN 14 days sennosides (senna) 17.2 mg (2 x 8.6 mg) PO BEDTIME PRN teriparatide (Forteo) mcg subcut Tobacco use date assessed: 06/02/23 Fall risk assessment: 1 Fall in past year Last assessed Fall Risk: 09/22/23 Dental Screening Dental Screen Date: 06/02/23 HPI HPI Comments History of Present Illness Details This is a 72-year-old female with dyslipidemia, osteoporosis, chronic constipation and 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 The lumbar pain started about a week ago and radiates to the right leg but no leg numbness or tingling. Able to walk. Went to urgent care for this matter and will receive physical therapy for lumbar pain. After going to urgent care Wednesday09/18/2023 she tripped and fell and her her right knee and now is swollen and is tender to palpation. I will order an x-ray of the knee and give her diclofenac cream. Cholesterol stable with statins. On Forteo for osteoporosis and is follow by Rheumatology. Constipation stable with senna as needed. On aspirin for secondary prophylaxis of her cerebrovascular accident. [facility] Medical History (Updated 09/22/23 @ 15:52 by Melania Reynoso MD) Epistaxis Aphasia Dyslipidemia Osteoporosis Physical exam Surgical History (Updated 09/22/23 @ 15:52 by Melania Reynoso MD) Hx of colonoscopy History of esophagogastroduodenoscopy (EGD) H/O bilateral breast reduction surgery Family History Father CVD (cardiovascular disease) Mother Cancer Daughter No problems noted. Social History Housing: Apartment Alcohol intake: never Patient Tobacco Use Status: Never used Tobacco e-Cigarette/Vaping Use: Never Used Second Hand Smoke Exposure: No service: No Current occupational status: unemployed and disabled Cognitive needs: No Hearing needs: No Vision needs: Yes Questionnaire Thrive Questionnaire Date Thrive assessed: 06/02/23 NATALIA-7 AMB Questionnaire NATALIA-7 Date NATALIA - 7 assessed: 06/02/23 Source: Developed by Drs. Juan Ying, Caterina Maldonado, Andre Henley and colleagues, with an educational jamaal from [employer]. Review of Systems Card Denies chest pain at rest, Denies chest pain with activity, Denies edema, Denies irregular heart rhythm, Denies claudication, Denies dyspnea, Denies dyspnea on exertion, Denies orthopnea, Denies paroxysmal nocturnal dyspnea and Denies slow heart rate Resp Denies cough, Denies dyspnea and Denies dyspnea on exertion GI Denies abdominal pain, Denies change in bowel habits, Denies excessive flatus, Denies nausea and Denies vomiting Denies urinary incontinence, Denies urinary hesitancy and Denies urinary urgency Musc Denies atrophy, Denies deformity and Denies limited range of motion Physical exam (Primary Care) Vital Signs: Last Vital Signs BP 135/80 09/22/23 13:49 BMI result Body Mass Index 22.1 Tobacco/Smoking Status: Tobacco use Status Tobacco use date assessed 06/02/23 09/22/23 13:25 Patient Tobacco Use Status Never used Tobacco 09/22/23 13:25 e-Cigarette/Vaping Use Never Used 09/22/23 13:25 Thrive Assessment: Date of Thrive Assessment Date Thrive assessed 06/02/23 09/22/23 13:25 Const Orientation/consciousness: patient oriented x3 HENMT Head: Yes normal to inspection, Yes normocephalic and Yes atraumatic Ears: external ears normal General nose exam: Normal external nose present and No nasal discharge present Face and sinus: Yes sinuses nontender Mouth: lip normal Eyes General: appearance normal, both eyes and all related structures Eyelids: Yes eyelids normal Conjunctivae: conjunctivae normal Neck Neck: Yes normal visual inspection and Yes supple Resp Effort & Inspection: normal respiratory effort Auscultation: clear to auscultation bilaterally Cardio Jugular venous distension: no JVD Rate: regular rate Rhythm: regular rhythm Heart sounds: S1 normal heart sound present and S2 normal heart sound present GI Inspection: Yes normal to inspection Palpation (GI): Soft to palpation and nontender Auscultation: normal bowel sounds Skin General skin exam: no rashes or lesions noted Neuro General: patient oriented x3 and no focal motor deficits Extrem General: Yes full ROM Psych Appearance: grossly normal Assessment and Plan Assessment & Plan (1) Cerebral infarction involving left middle cerebral artery: Comment: 2019 with aphasia as residual deficit Code(s): I63.512 - Cerebral infarction due to unspecified occlusion or stenosis of left middle cerebral artery Plan: Continue aspirin for secondary prophylaxis. (2) Dyslipidemia: Code(s): E78.5 - Hyperlipidemia, unspecified Plan: Continue statins. (3) Osteoporosis: Code(s): M81.0 - Age-related osteoporosis without current pathological fracture Plan: Continue Forteo. (4) Chronic constipation: Code(s): K59.09 - Other constipation Plan: Continue senna as needed. (5) Lumbar pain: Code(s): M54.50 - Low back pain, unspecified Plan: Start physical therapy. X-ray lumbar spine ordered. (6) Right knee pain: Code(s): M25.561 - Pain in right knee Plan: X-ray right knee ordered. Start diclofenac gel. Orders: Orders XR lumbar spine 2-3V Today M54.50 - Low back pain, unspecified XR knee RT 2V Today M25.561 - Pain in right knee Coding Level of Care Code Est Pt Level 4 (55780) Complex EM visit Add On G2211 Diagnoses Cerebral infarction involving left middle cerebral artery I63.512 Dyslipidemia E78.5 Osteoporosis M81.0 Chronic constipation K59.09 Lumbar pain M54.50 Right knee pain M25.561 Time Spent (min) 22
[2023-09-22 13:49] VITALS: BP 135/80
== END 2023-09-22 13:59 | disposition home or self-care (01) ==
PROVIDERS: PCP Internal Medicine; Visit Provider Internal Medicine
DX: I63.512 Cerebral infarction due to unspecified occlusion or stenosis of left middle cerebral artery (principal); E78.5 Hyperlipidemia, unspecified; M81.0 Age-related osteoporosis without current pathological fracture; K59.09 Other constipation; M54.50 Low back pain, unspecified; M25.561 Pain in right knee
CPT/HCPCS: 99214; G2211

== ENCOUNTER 2023-09-23 11:36 | Outpatient (REF) | payer MEDICARE, OTHER, SELFPAY ==
--- NOTE | ~2023-09-23 | XR_ITS ---
EXAMINATION: XR LUMBOSACRAL SPINE CLINICAL INFORMATION: Back pain COMPARISON: None available. TECHNIQUE: Three views of the lumbosacral spine. FINDINGS: The vertebral bodies and posterior elements are normal. Vertebral body alignment is preserved. Mild multilevel disc space narrowing and tiny osteophytes.. Vertebral soft tissues are unremarkable. XR/XR lumbar spine 2-3V IMPRESSION: Mild degenerative changes of the lumbar spine.
--- NOTE | ~2023-09-23 | XR_ITS ---
EXAMINATION: XR KNEE, RIGHT CLINICAL INFORMATION: Pain COMPARISON: None available. TECHNIQUE: 2 views of the right knee. FINDINGS: No fracture or joint effusion. Alignment is anatomic. Joint spaces are maintained. No abnormal soft tissue calcification. XR/XR knee RT 2V IMPRESSION: Normal right knee.
== END 2023-09-23 11:37 | disposition home or self-care (01) ==
LOC: HO.XRAY 11:36
PROVIDERS: PCP Internal Medicine; Visit Provider Internal Medicine
DX: M54.50 Low back pain, unspecified (principal); M25.561 Pain in right knee
CPT/HCPCS: 72100; 73560

== ENCOUNTER 2024-03-15 10:20 | Outpatient (RCR) | payer MEDICARE, OTHER, SELFPAY ==
--- NOTE | 2024-02-25 10:24 | MHC.OT.EP ---
[address] [phone] Occupational Therapy Plan of Care Patient Name: Lili Schuster Date of Evaluation: 02/25/24 Diagnosis: B/L Hand Pain Pain Location: B/L hands, base of thumbs primarily Pain Score: 8 Pain Scale Used: Numeric (0 - 10) Aggravating Factors: Gripping, twisting, heavy use Alleviating Factors: Warm water and compresses Assessment: 73 yo female presents to OT w/ B/L hand pain, persistent after falling this summer landing on knees and hands. She reports both hands bother her and thumbs get stuck at times. On assessment today, she has visible arthritic changes in both hands w/ (+) CMC grind test. Primary complaint is pain in base of both thumbs, left worse than right, and tightness and impaired range in left thumb. She will benefit from course of OT for education on management of OA w/ stretching, massage, strengthening, joint protection and activity modification. Frequency and Duration: The patient will be seen 2x/wk for 3 weeks Short Term Goals: Ind w/ use of heat for comfort Ind w/ HEP Good follow through w/ orthoses wear for comfort and protection Telephone Claims Representative Goals: Good follow through w/ joint protection and activity modification Pt to demo good range with thumb-index opp for protected pinch Progress to strengthening program Treatment Plan: Therapeutic Exercise Therapeutic Activity Home Exercise Program Splinting Patient Education ADL Training Paraffin Fluidotherapy MHP Joint Mobilization Soft Tissue Mobilization Kinesiotaping Electronically Signed By: Gabbie Corral OTR/L CHT Please Sign and return to therapist. Thank you once again for your referral.
--- NOTE | 2024-04-20 14:19 | MHC.OT.DC ---
[address] [phone] F: [phone] Occupational Therapy Discharge Note Patient Name: Lili Schuster Provider: Dr Melania Reynoso Diagnosis: B/L Hand Pain Date of Evaluation: 02/25/24 Date of Discharge: 04/20/24 Treatments to Date: 5 Discharge Summary: Lili was seen for course of OT to address B/L hand pain w/ CMC OA and multiple trigger fingers. She has been educated on diagnosis and fit with CMC orthosis and Oval 8 splints to reduce active flexion. She has good follow through w/ HEP but minimal gains/relief with therapy. Less triggering noted with application of Oval 8 splints, but still with thumb IP triggering and tenderness at times. No further OT indicated at this time, discussed referral to ortho specialist. Electronically Signed By: Gabbie Corral OTR/L CHT Please Sign and return to therapist, thank you for your referral.
== END 2024-04-20 14:20 | disposition home or self-care (01) ==
LOC: HO.OT 10:20
PROVIDERS: PCP Internal Medicine; Visit Provider Internal Medicine
DX: M79.641 Pain in right hand (principal); M79.642 Pain in left hand
CPT/HCPCS: 29130; 97110; 97140; 97165; 97760

== ENCOUNTER 2024-06-07 09:40 | Outpatient (AMB) | payer MEDICARE, OTHER, SELFPAY ==
--- NOTE | 2024-06-07 09:51 | A.OFFVIS_ITS ---
Intake Vital Signs 06/07/24 10:04 Height 5 ft 1 in Weight 120 lb BMI 22.7 BP 136/72 Blood Pressure Location Lt brachial Position Sitting Intake Visit Reasons: AWV G0438 Intake Note: Patient here for an annual wellness visit [employer] Foreign Language Teacher Required: Yes High [employer] Foreign Language Teacher Language: [employer] Women Services: High [employer] Foreign Language Teacher Present [employer] Foreign Language Teacher Name: Melania Reynoso MD Information Interpreted: non-clinical & clinical Accompanied by: Self / Same As Patient Allergies peanut [PEANUT] Allergy (Severe, Verified 06/07/24 10:20) ANAPHYLAXIS Medication List - Last Reconciled 06/07/24 by Melania Reynoso MD ascorbic acid (vitamin C) 100 mg PO DAILY aspirin 81 mg PO DAILY atorvastatin 20 mg PO DAILY calcium polycarbophil (FiberCon) 1,250 mg (2 x 625 mg) PO DAILY 30 days cholecalciferol (vitamin D3) 50 mcg PO DAILY diclofenac sodium 1% (Aleve (diclofenac)) 2 grams topical QID 30 days hydrocortisone acetate (Anusol-HC) 25 mg IL BEDTIME 24 days menthol-zinc oxide 0.44-20.6 % (Calmoseptine) 1 appl topical QID PRN naproxen 375 mg PO BID PRN 14 days sennosides (senna) 17.2 mg (2 x 8.6 mg) PO BEDTIME PRN teriparatide (Forteo) mcg subcut HPI HPI Comments History of Present Illness Details The patient is a 73-year-old female presenting for a Medicare annual wellness exam. She has a history of a stroke in the left middle cerebral artery, which occurred a few years ago. The stroke left her with a residual deficit of expressive and receptive aphasia, which persists. The patient reports bilateral hand pain, particularly in the thumbs, and has previously attended occupational therapy without significant improvement. Her past medical history also includes osteoporosis, for which she follows with rheumatology, and hyperlipidemia with a target LDL goal of less than 70. She is compliant with her medication regimen and denies experiencing chest pain or shortness of breath. She also has thoracic spine pain. [place] of care reviewed and PPP handed to patient. - Vaccinations: Up to date, including pn eumonia and tetanus vaccines. - Mammogram performed last year. - DEXA scan conducted last year, confirm ing osteoporosis; under management by rheumatology. - Colonoscopy completed last year. [facility] Medical History (Updated 06/07/24 @ 10:44 by Melania Reynoso MD) Epistaxis Aphasia Dyslipidemia Osteoporosis Physical exam Surgical History Hx of colonoscopy History of esophagogastroduodenoscopy (EGD) H/O bilateral breast reduction surgery Family History Father CVD (cardiovascular disease) Mother Cancer Daughter No problems noted. Social History Housing: Apartment Alcohol intake: never Patient Tobacco Use Status: Never used Tobacco e-Cigarette/Vaping Use: Never Used Second Hand Smoke Exposure: No service: No Current occupational status: unemployed and disabled Cognitive needs: No Hearing needs: No Vision needs: Yes Questionnaire Medicare Wellness Checkup [age] What gender do you identify with?: female During the past 4 weeks, how much have you been bothered by emotional problems such as feeling anxious, depressed, irritable, sad or downhearted, and blue?: not at all During the past 4 weeks, has your physical & emotional health limited your social activities with family, friends, neighbors, or groups?: moderately During the past 4 weeks, how much bodily pain have you generally had?: very mild pain During the past 4 weeks, was someone available to help you if you needed & wanted help?: no, not at all During the past 4 weeks, what was the hardest physical activity you could do for at least 2 minutes?: moderate Can you get to places out of walking distance without help? (For eg., can you travel alone on buses, taxis or drive your car?): Yes Can you go shopping for groceries or clothes without someone's help?: Yes Can you prepare your own meals?: Yes Can you do your housework without help?: Yes Because of any health problems, do you need the help of another person with your personal care needs such as eating, bathing, dressing or getting around the house?: No Can you handle your own money without help?: Yes During the past 4 weeks, how would you rate your health in general?: good During the past 4 weeks how have things been going for you?: very well; could hardly better Are you having difficulties driving your car?: no Do you always fasten your seat belt when you are in a car?: yes, usually During past 4 weeks, have you been bothered by the following: never: Falling or dizzy when standing up, Sexual problems?, Trouble eating well?, Teeth or denture problems?, Problems using the telephone? and Tiredness or fatigue? Have you fallen 2 or more times in the past year?: Yes Are you afraid of falling?: Yes Are you a smoker?: no During the past 4 weeks, how many drinks of wine, beer, or other alcoholic beverages did you have?: no alcohol at all Do you exercise for about 20 minutes 3 or more times a week?: no, I usually do not exercise this much Have you been given information to help with the following?: no: Hazards in your house that might hurt you? and no: Keeping track of your medications? How often do you have trouble taking medicines the way you have been told to take them?: I always take medicine as prescribed How confident are you that you can control & manage most of your health problems?: very confident What is your race?: or origin or descent Mini Mental State Exam (MMSE) Orientation What is the (year) (season) (date) (day) (month)?: year, season, date, day and month Where are we (state) (county) (town or city) (hospital) (floor)?: state, county, town or city, hospital/clinic and floor Registration Name of 3 unrelated objects clearly and slowly, then ask patient to repeat all 3 of them. (1st repeat determines score. Make sure they can repeat all three): object 1, object 2 and object 3 Attention & Calculation (CHOOSE ONE) Spell WORLD backwards (DLROW): 5 letters Recall Ask patient to repeat the 3 items from question #3.: object 1, object 2 and object 3 Language Show patient a wristwatch & ask what it is. Repeat for pencil.: watch and pencil Ask the patient to repeat the phrase 'No ifs, ands, or buts' after you.: correct Ask the patient to 'take a piece of paper with their right hand' 'fold paper in half' 'place paper on floor': take paper in right hand, fold paper in half and place paper on floor Print the sentence 'CLOSE YOUR EYES' on a piece. If patient actually closes eyes then score.: followed written direction Give patient a blank piece of paper & ask to write a sentence. Score if it contains a noun & verb.: sentence contains subject and verb Ask patient to copy figure of intersecting pentagons exactly. Score if all 10 angles & 2 intersects are included.: all 10 angles present & 2 are intersected Score Score: 30 Activity of Daily Living Bathing - sponge bath, tub bath or shower: receives no assistance (gets in/out by self, if usual bathing means Dressing - getting clothes from closets & drawers, including inner/outer garments & fasteners.: gets clothes & gets completely dressed without help Toileting - going to the 'toilet room' for urine/bowel elimination & cleaning self/arranging clothes: goes to toilet room, cleans self, arranges clothes without help Transfer: moves in & out of bed and chair without help (may use support object) Continence: controls urination/bowel movements completely by self Feeding: feeds self without help Total Score: 0 Information obtained from: patient Using telephone: independent Traveling: independent Shopping: independent Preparing meals: independent Housework: independent Taking medicine: independent Managing money: independent PHQ-9 Over the last 2 weeks, how often have you been bothered by any of the following problems? 1. Little interest or pleasure in doing things: not at all 2. Feeling down, depressed, or hopeless: not at all 3. Trouble falling or staying asleep, or sleeping too much: several days 4. Feeling tired or having little energy: not at all 5. Poor appetite or overeating: not at all 6. Feeling bad about yourself - or that you are a failure or have let yourself or your family down: not at all 7. Trouble concentrating on things, such as reading the newspaper or watching television: not at all 8. Moving or speaking so slowly that other people could have noticed. Or the opposite - being so fidgety or restless that you have been moving around a lot more than usual: not at all 9. Thoughts that you would be better off or of hurting yourself in some way: not at all Total score: 1 Depression Screening Interpretation: Negative Depression Screening Done: Yes 82269 - PHQ-9 Billing: Yes Source: Developed by Drs. Juan Ying, Andre New and colleagues, with an educational jamaal from [employer]. Fall Risk Assessment Fall Risk Assessment Fall risk assessment: No Falls in past year AUDIT C Alcohol Use Questionnaire (AUDIT-C) 1. How often do you have a drink containing alcohol?: Never Total Score: 0 Score Reviewed/Action Taken: No NATALIA-7 AMB Questionnaire NATALIA-7 Date NATALIA - 7 assessed: 06/07/24 Feeling nervous, anxious, or on edge: 0 = Not at all Not being able to stop or control worryin = Not at all Worrying too much about different things: 0 = Not at all Trouble relaxin = Not at all Being so restless that it is hard to sit still: 0 = Not at all Becoming easily annoyed or irritable: 0 = Not at all Feeling afraid as if something awful might happen: 0 = Not at all Total NATALIA-7 score (0-4 normal; 5-9 mild; 10-14 moderate; 15-21 severe): 0 Source: Developed by Drs. Juan Ying, Andre New and colleagues, with an educational jamaal from [employer]. NATALIA-7 Assessment Billing NATALIA-7 Assessment Tool: NATALIA-7 Assessment 10432 Thrive Questionnaire Date Thrive assessed: 06/02/23 Review of Systems Const All systems reviewed & are unremarkable except as noted in HPI and below Card Denies chest pain at rest, Denies chest pain with activity, Denies edema, Denies irregular heart rhythm, Denies claudication, Denies dyspnea, Denies dyspnea on exertion, Denies orthopnea, Denies paroxysmal nocturnal dyspnea and Denies slow heart rate Resp Denies cough, Denies dyspnea and Denies dyspnea on exertion GI Denies abdominal pain, Denies change in bowel habits, Denies excessive flatus, Denies nausea and Denies vomiting Denies urinary incontinence, Denies urinary hesitancy and Denies urinary urgency Musc Reports arthralgias Neuro Denies lack of coordination Physical Exam Vital Signs: Last Vital Signs BP 136/72 06/07/24 10:04 BMI result Body Mass Index 22.7 Resp Effort & Inspection: normal respiratory effort Auscultation: clear to auscultation bilaterally Cardio Jugular venous distension: no JVD Rate: regular rate Rhythm: regular rhythm Heart sounds: S1 normal heart sound present and S2 normal heart sound present Neuro General: gait normal and no focal motor deficits Speech: Expressive aphasia present and Receptive aphasia present Romberg Test: Negative Extrem General: Yes full ROM Psych Appearance: grossly normal Assessment & Plan Assessment & Plan (1) Encounter for Medicare annual wellness exam: Code(s): Z00.00 - Encounter for general adult medical examination without abnormal findings (2) Nail lesion: Code(s): L60.9 - Nail disorder, unspecified (3) Right hand pain: Code(s): M79.641 - Pain in right hand (4) Left hand pain: Code(s): M79.642 - Pain in left hand (5) Thoracic spine pain: Code(s): M54.6 - Pain in thoracic spine (6) Cerebral infarction involving left middle cerebral artery: Comment: 2019 with aphasia as residual deficit Code(s): I63.512 - Cerebral infarction due to unspecified occlusion or stenosis of left middle cerebral artery Plan - Expressive Aphasia: Continue follow-up with neurology. - Osteoporosis: Monitoring by rheumatology; prior DEXA scan showing severity. - Bilateral Hand Pain: Referral to orthopedics for further evaluation. - Hyperlipidemia: Continue to monitor lipid levels; ensure LDL remains under 70. Patient was informed and verbally consented to the use of an ambient scribe for clinic note documentation during this visit. During this visit, I discussed the patient's current health status and ongoing health maintenance, including the importance of routine screenings and vaccinations. We reviewed her medical history, emphasizing her prior stroke and the resulting expressive aphasia. I emphasized adherence to her medication regimen, especially for her hyperlipidemia, to maintain her LDL goal below 70. The patient was advised about the potential need for further orthopedic evaluation due to her persistent bilateral hand pain, particularly in the thumbs. The importance of continued neurology follow-up for expressive aphasia was reiterated. We provided anticipatory guidance and ensured her understanding of the proposed referrals and follow-ups. Orders: Orders Lipid Panel Today E78.5 - Hyperlipidemia, unspecified Comprehensive [place]. Panel Fast Today Z00.00 - Encounter for general adult medical examination without abnormal findings Referrals Orthopedics Referral M79.641 - Pain in right hand, M79.642 - Pain in left hand Dermatology Referral L60.9 - Nail disorder, unspecified Patient Instructions: - Follow up with neurology as scheduled for expressive aphasia management. - Attend the referred orthopedic appointment for evaluation of bilateral hand pain. - Continue routine health screenings and vaccinations as due. - Maintain current medication adherence, especially for cholesterol management. - Monitor for any new symptoms and report any changes immediately. Quality Reporting (2019) Fall Risk Screening ([facility] 139) Fall risk assessment: No Falls in past year Depression/Bipolar (159/160/161/177) PHQ-9: Total score: 1 Coding Level of Care Code Medicare First (G0438) Est Pt Level 4 (99486) Diagnoses Encounter for Medicare annual wellness exam Z00.00 Nail lesion L60.9 Right hand pain M79.641 Left hand pain M79.642 Thoracic spine pain M54.6 Cerebral infarction involving left middle cerebral artery I63.512 Additional Codes NATALIA-7 Assessment Billing - NATALIA-7 Assessment Tool: NATALIA-7 Assessment 77407 ([id number]) PHQ-9 - 99820 - PHQ-9 Billing: Yes ([id number]) Time Spent (min) 40 Advance Care Planning Advance Care Planning discussion: Exists, not on file
--- OUTSIDE RECORDS SUMMARY | 2024-06-07 10:00 | XMS_ITS ---
Author Organization [facility] Address [email or web address] [place] [address] Care Team Providers Care Press Setup Operator Name Role Phone TRISTON GARCIA M.D. 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 No Points 0 Interpretation Negative Sexual History Question Answer Notes Had sex in the past 12 months (vaginal, oral, or anal)? No Have you ever had a Sexually transmitted disease ? No Tobacco use other than smoking: Question Answer Notes Are you an other tobacco user? No Vital Signs Height 60.8 in 03/02/2023 Weight 116 lbs 03/02/2023 BMI 22.06 kg/m2 03/02/2023 Blood pressure systolic 132 mm Hg 03/02/20 23 Blood pressure diastolic 80 mm Hg 023 Temperature 97.5 degrees Fahrenheit 03/02/20 23 Encounters Encounter Location Date Provider Diagnosis [facility] [email or web address] [place] [address] 03/02/2023 Laine Hayesva Encounter for screening mammogram for malignant neoplasm of breast Z12.31 ; Age-related osteoporosis without current pathological fracture M81.0 ; Postmenopausal atrophic vaginitis N95.2 and Encounter for gynecological examination (general) (routine) without abnormal findings Z01.419 Assessments Encounter Date Diagnosis (ICD Code) Assessment Notes Treatment Notes Treatment Clinical Notes Section Notes 03/02/2023 Encounter for screening mammogram for malignant neoplasm of breast (ICD-10 - Z12.31) REGULAR MAMMOGRAMS AND SBE'S WERE RECOMMENDED. 03/02/2023 Age-related osteoporosis without current pathological fracture (ICD-10 - M81.0) DISCUSSED HER LAST BMD AND OSTEOPOROSIS AND ITS IMPACT ON HER HEALTH. ADEQUATE CALCIUM AND VIT D. WEIGHT BEARING EXERCISES. OSTEO PRECAUTIONS. CONTINUE TO SEE DR KHAN. REPEAT BMD IN 2023. 03/02/2023 Postmenopausal atrophic vaginitis (ICD-10 - N95.2) DISCUSSED FINDINGS, DX AND TX OPTIONS. PAT IS ASYMPTOMATIC. 03/02/2023 Encounter for gynecological examination (general) (routine) without abnormal findings (ICD-10 - Z01.419) NO MORE PAP TESTS. Plan Of Treatment Treatment Notes Assessment Notes Encounter for screening mamm ogram for malignant neoplasm of breast REGULAR MAMMOGRAMS AND SBE'S WERE RECOMMENDED. Age-related osteoporosis wit hout current pathological fracture DISCUSSED HER LAST BMD AND OSTEOPOROSIS AND ITS IMPACT ON HER HEALTH. ADEQUATE CALCIUM AND VIT D. WEIGHT BEARING EXERCISES. OSTEO PRECAUTIONS. CONTINUE TO SEE DR KHAN. REPEAT BMD IN 2023. Postmenopausal atrophic vaginitis DISCUSSED FINDINGS, DX AND TX OPTIONS. PAT IS ASYMPTOMATIC. Encounter for gynecological examination (general) (routine) without abnormal findings NO MORE PAP TESTS. Pending Test Test Name Order Date MAMMOGRAM, SCREENING 03/02/2023 BONE DENSITY 03/02/2023 MM Digital Mammo Screening 03/02/2023 Next Appt Details Follow Up: 1 Year, Reason: Progress Notes * KRISTIAN CARRASCODOB :1950 (72 yo F)Acc No.[id number]:03/02/2023 PROGRESS NOTES Patient:?KRISTIAN CARRASCO Appointment Provider:?Laine loza M.D. 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 ENOCH ENTERED MENOPAUSE IN HER 50'S. SHE IS NOT SEXUALLY ACTIVE. ?SHE SUFFERED A STROKE IN 2019 AND HAS FULLY RECOVERED. ?HER LAST MAMMOGRAM DONE IN NOV 2022 SHOWED BREASTS ARE NOT DENSE AND WAS NORMAL. ?HER LAST PAP TEST IN 2018 WAS NEGATIVE AND HPV NEGATIVE. SHE HAS NO HX OF ABNORMAL PAP TESTS. ?SHE IS KNOWN TO BE OSTEOPOROTIC AND SEES DR KHAN. HER LAST BMD IN 2021 SHOWED THE LOWEST T-SCORE TO BE -3.1 AT [facility]. THIS WAS -2.7 IN 2019. SHE HAS NO HX OF FRACTURES. ?SHE HAD A COLONOSCOPY DONE IN 2021. ?MODERNA X 3. ???Annual:? Patient presents for annual exam, ages 60-85, postmenopausal. ?General Health Maintenance:?Current breast complaints:?no breast pain, mass, discharge, or skin changes ?Urinary problems:?patient reports no urinary health problems or bowel health problems ?Calcium intake:?takes adequate calcium via diet and supplementation ?Significant SECOND CUTTER problems:?no significant extension work instructor symptoms or problems * ROS:?general:?no?chest pain.?no?palpitations.?no?headache.?no?cough.?no?shortness of breath.?no?fever.?no?unexplained weight loss.?no?nausea/vomiting.?no?change in bowel movements.?no blood in stool.?no?genitourinary complaints.?no?skin complaints.? * Medical History:? 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 Control:?Jaqueline.?Colonoscopy?yes, 06/2017, BENIGN polyps 06/2014 .?Bone Density:?2021, 04/20/21, 04/15/17, 2011.? * OB History:?Total pregnancies?1.?Total living children?1.?NVD?1.? * Surgical History:?Breast Red uction 2011Colonoscopy Retina Eye Surgery * Hospitalization/Major Diagno stic Procedure:?No Hospitalization History. * Family History:?Mother: dece ased 73 yrs, stomach cancer, coronary artery disease.?Father: 64 yrs, coronary artery disease.? * Social History:?Tobacco Use:?Tobacco Use/Smoking?Are you a?nonsmoker ?Tobacco use other than smoking?Are you an other tobacco user??No ???Sexual History:?Sexual History?Had sex in the past 12 months (vaginal, oral, or anal)??No ?Have you ever had a Sexually transmitted disease??No ?Details of Sexual History?Are you sexually active??No ???Drugs/Alcohol:?Drugs?Have you used drugs other than those for medical reasons in the past 12 months??No ?Alcohol Screen (Audit-C)?Did you have a drink containing alcohol in the past year??No ?Points?0 ?Interpretation?Negative ???Miscellaneous:?Children: yes, 1. ?Home smoke detector use: yes. ?Marital status: single. ?Natural support system: yes. ?Occupation: Retired. ?no Sexually active. * Medications:?TakingAtorvasta tin Calcium 20 MG Tablet 1 tablet Orally Once a dayAspirin 81 MG Tablet Delayed Release Orally Multimineral Plus - Tablet 1 tablet Orally Twice a weekTaking Atorvastatin Calcium 20 MG Tablet 1 tablet Orally Once a dayTaking Aspirin 81 MG Tablet Delayed Release Orally Taking Multimineral Plus - Tablet 1 tablet Orally Twice a weekDiscontinuedMagnesium Oxide 400 MG Tablet 2 tablet Orally Once a dayResveratrol 40 mg Orally Once a dayVitamin B12 1000 MCG Tablet Extended Release 1 tablet Orally Once a dayVitamin D3 25 MCG (1000 UT) Tablet 1 tablet Orally Once a dayCalcium Carbonate-Vit D-Min 600-200 MG-UNIT Tablet 1 tablet with food Orally Once a dayCoQ-10 30 MG Capsule 2 capsule with a meal Orally Three x a dayGarlic 1000 MG Capsule 1 capsule Orally 4x a dayLoratadine 10 MG Tablet 1 tablet Orally Once a dayGugulipid 500 MG Capsule 1 capsule Orally Three x a dayOmega 3 120-180 MG Capsule 1 capsule Orally Once a dayMultivitamin & Mineral - Liquid as directed Orally Medication List reviewed and reconciled with the patientDiscontinued Magnesium Oxide 400 MG Tablet 2 tablet Orally Once a dayDiscontinued Resveratrol 40 mg Orally Once a dayDiscontinued Vitamin B12 1000 MCG Tablet Extended Release 1 tablet Orally Once a dayDiscontinued Vitamin D3 25 MCG (1000 UT) Tablet 1 tablet Orally Once a dayDiscontinued Calcium Carbonate-Vit D-Min 600-200 MG-UNIT Tablet 1 tablet with food Orally Once a dayDiscontinued CoQ-10 30 MG Capsule 2 capsule with a meal Orally Three x a dayDiscontinued Garlic 1000 MG Capsule 1 capsule Orally 4x a dayDiscontinued Loratadine 10 MG Tablet 1 tablet Orally Once a dayDiscontinued Gugulipid 500 MG Capsule 1 capsule Orally Three x a dayDiscontinued Cossayuna 3 120- 180 MG Capsule 1 capsule Orally Once a dayDiscontinued Multivitamin & Mineral - Liquid as directed Orally Medication List reviewed and reconciled with the patient * Allergies:?Peanut (Diagnosti c): Throat Closes - Allergy - Criticality Highno[Allergies Verified] Objective: * Vitals:?Ht: 60.8 in, Wt:116 lbs, BMI:22.06 Index, BP:132/80 mm Hg, Temp:97.5 F. * Examination: ???General Exam: ?CONSTITUTIONAL:?NECK/THYROID:?RESPIRATORY:?Auscultation: clear to auscultation bilaterally, Respiratory Effort: normal.?CARDIOVASCULAR:?Auscultation: regular rate and rhythm.?BREAST, Right:?BREAST, Left:?GASTROINTESTINAL:?MUSCULOSKELETAL:?SKIN:?NEURO/PSYCH:?Genitourinary: ?EXTERNAL GENITALIA:?VAGINA:?BLADDER:?URETHRA:?CERVIX:?UTERUS:?ADNEXA:?ANUS AND PERINEUM:? Assessment: * Assessment: 1.?Encounter for screening m ammogram for malignant neoplasm of breast - Z12.31?2.?Age-related osteoporosis without current pathological fracture - M81.0?3.?Postmenopausal atrophic vaginitis - N95.2?4.?Encounter for gynecological examination (general) (routine) without abnormal findings - Z01.419 (Primary)? Plan: * Treatment: 2.?Encounter for screening m ammogram for malignant neoplasm of breast?Imaging: MM Digital Mammo Screening Notes: REGULAR MAMMOGRAMS AND SBE'S WERE RECOMMENDED.?? 3.?Age-related osteoporosis without current pathological fracture?Imaging: BONE DENSITY Notes: DISCUSSED HER LAST BMD AND OSTEOPOROSIS AND ITS IMPACT ON HER HEALTH. ADEQUATE CALCIUM AND VIT D. WEIGHT BEARING EXERCISES. OSTEO PRECAUTIONS. CONTINUE TO SEE DR KHAN. REPEAT BMD IN 2023.?? 4.?Postmenopausal atrophic v aginitis? Notes: DISCUSSED FINDINGS, DX AND TX OPTIONS. PAT IS ASYMPTOMATIC.?? * Imaging:? * ?Imaging: MAMMOGRAM, SCR EENING * Procedure Codes:? * Preventive Medicine:? ??YOUR PREVENTIVE WELLNESS PLAN:?Osteoporosis prevention?Calcium, D, strength training.?Breast Cancer Screening (Mammogram):?annually.?Cervical Cancer Screening (Pap Smear):?q 3 years with HPV screen.?Colorectal Cancer Screening:?q 10 years.? * Follow Up:?1 Year * Images: Billing Information: * Visit Code:? [id number] Preventive Care Est Pt. Age 65 and over. * Procedure Codes:? * Sign off status: Completed true * Appointment Provider:?Laine Seth M.D. Date:?03/02/2023 Generated for Shlomo murguia/Diaz/eTleonardasmitting on:?06/07/2024 10:00 AM EST History and Physical Notes * HPI (History of Present Illness) Category Sub-Category Detail Notes Category Not es New/Follow-up Patient Consult ENOCH ENTERED MENOPAUSE IN HER 50'S. SHE IS NOT SEXUALLY ACTIVE. SHE SUFFERED A STROKE IN 2019 AND HAS FULLY RECOVERED. HER LAST MAMMOGRAM DONE IN NOV 2022 SHOWED BREASTS ARE NOT DENSE AND WAS NORMAL. HER LAST PAP TEST IN 2018 WAS NEGATIVE AND HPV NEGATIVE. SHE HAS NO HX OF ABNORMAL PAP TESTS. SHE IS KNOWN TO BE OSTEOPOROTIC AND SEES DR KHAN. HER LAST BMD IN 2021 SHOWED THE LOWEST T-SCORE TO BE -3.1 AT [facility]. THIS WAS -2.7 IN 2019. SHE HAS NO HX OF FRACTURES. SHE HAD A COLONOSCOPY DONE IN 2021. MODERNA X 3. Annual General Health Maintenance: Current breast complaints:: no breast pain, mass, discharge, or skin changes Urinary problems:: patient r param no urinary health problems or bowel health problems Calcium intake:: takes adequ ate calcium via diet and supplementation Significant SECOND CUTTER problems:: n o significant extension work instructor symptoms or problems Examination Category Sub-Category Detail Notes Category Not es General Exam CONSTITUTIONAL: General Appearan ce:: alert, in no acute distress, normal, well nourished NECK/THYROID: Inspection/Palpation:: normal Thyroid:: normal size and shape RESPIRATORY: Auscultation: clear to auscultation bilaterally, Respiratory Effort: normal CARDIOVASCULAR: Auscultation: regula r rate and rhythm GASTROINTESTINAL: Abdomen:: no masses, nontender , nondistended Liver and Spleen:: normal Hernias:: no hernias present, no inguina l adenopathy MUSCULOSKELETAL: Inspection/Palpation:: no clubb ing, cyanosis, or edema SKIN: Skin:: normal NEURO/PSYCH: Orientation:: time , place, pers on Mood/Affect:: normal BREAST, Right: Inspection/Palpation :: no discharge, no masses present, no nipple retraction, no skin changes, no skin dimpling, no tenderness, no lymphadenopathy, no axillary mass, no axillary tenderness BREAST, Left: Inspection/Palpation :: no discharge, no masses present, no nipple retraction, no skin changes, no skin dimpling, no tenderness, no lymphadenopathy, no axillary mass, no axillary tenderness Genitourinary EXTERNAL GENITALIA: External Genitalia:: nor mal, no lesions VAGINA: Vagina:: atrophic vaginal tissue , minimal moisture BLADDER: Bladder:: no mass, nontender URETHRA: Urethra:: no erythema or lesions present CERVIX: Cervix:: no lesions, nontender UTERUS: Uterus:: nontender, normal conto ur, normal mobility, normal size ADNEXA: Adnexa:: no masses, no tendernes s ANUS AND PERINEUM: Anus/Perineum:: visually norm al
--- OUTSIDE RECORDS SUMMARY | 2024-06-07 10:00 | XMS_ITS | Patient Health Record ---
[facility] Address [address] [place] [address] Care Team Providers Care Home Housekeeper Name Role Phone Ten QUIROZ, Nikos Primary Care Provider Unavailable Blanche Newell Unavailable [phone] Allergies Allergen (clinical drug ingredient) Drug/Non Drug Allergy documented on EMR Reaction Allergy Type Onset Date Status nuts (uncoded) Unknown Allergy Activ e Shellfish (FN) Shellfish-derived Products Unknown Drug Allergy Active Reason For Referral No Information Medications Medication SIG (Take, Route, Frequency, Duration) Notes Start Date End Date Status Aspirin 81 MG 1 tablet Orally Once a day for 30 day(s) Active Atorvastatin Calcium 20 MG 1 tablet Oral ly Once a day for 30 day(s) Active Multivitamin - 1 tablet Orally Once a day for 30 day(s) Active Social History Tobacco Use: Social History Observation Description Date Details (start date - stop date) Never Smoker NA - NA Tobacco Use/Smoking Question Answer Notes Are you a: nonsmoker Alcohol Screen Question Answer Notes Did you have a drink containing alcohol in the p ast year? No Points 0 Interpretation Negative Problems Problem Type SNOMED Code ICD Code Onset Dates Problem Status W/U Status Risk Notes Problem [id number] Hallux valgus (acquired), left foot (M20.12) Active confirmed Problem [id number] Hallux valgus (acquired), right foot (M20.11) Active confirmed Plan Of Treatment No Information Insurance Providers Payer Name Payer Address Payer Phone Subscriber Number Group Number Insured Name Patient Relationship to Insured Coverage Start Date Coverage End Date Medicare National [employer] [address] [place] [address] [id number] Lili Pathak Self - patient is the insured [facility] [address] [place] [address] [id number] Lili Pathak Self - patient is the insured Medical (General) History Medical History History ICD Code Osteoporosis Stroke Surgical History Surgery Date(Month/Year) breast augmentation Retina
--- OUTSIDE RECORDS SUMMARY | 2024-06-07 10:00 | XMS_ITS | Patient Health Record ---
Author Organization [facility] Address [address] [place] [address] Care Team Providers Care Csw Name Role Phone TRISTON GARCIA M.D. Primary Care Provide Laine Monahan Unavailable [phone] Allergies Allergen (clinical drug ingredient) Drug/Non Drug Allergy documented on EMR Reaction Allergy Type Onset Date Status peanut allergenic extract Peanut (Diagnostic) Throat Closes Drug Allergy Active Reason For Referral No [...] Are you an other tobacco user? No Problems Problem Type SNOMED Code ICD Code Onset Dates Problem Status W/U Status Risk Notes Problem Postmenopausal atrophic vaginitis (19901683) Postmenopausal atrophic vaginitis (N95.2) Active confirmed Problem Age-related osteoporosis (508119579) Age-related osteoporosis without current pathological fracture (M81.0) Active confirmed Problem Screening for malignant neoplasm of breast (647852115) Encounter for screening mammogram for malignant neoplasm of breast (Z12.31) Active confirmed Problem Hyperlipidemia (55622307) Other and unspecified hyperlipidemia (272.4) Active confirmed Major Problem Menopausal symptom (49351496) Symptomatic menopausal or female climacteric states (627.2) Active confirmed Major Problem Osteoporosis (12194047) Unspecified osteoporosis (733.00) Active confirmed Major Problem Gynecological examination normal (793333699791705) Routine gynecological examination (V72.31) Active confirmed Problem Screening for malignant neoplasm of colon (831614042) Special screening for malignant neoplasms, colon (V76.51) Active confirmed Major Vital Signs Temperature 97.7 degrees Fahrenheit 03/06/2024 Blood pressure diastolic 80 mm Hg 03/06/2024 Height 60.8 in 03/06/2024 Blood pressure systolic 128 mm Hg 03/06/2024 Weight 116 lbs 03/06/2024 BMI 22.06 kg/m2 03/06/2024 Encounters Encounter Location Date Provider Diagnosis [address] [place] [id number] 03/06/2024 Laine Seth Encounter for gynecological examination (general) (routine) without abnormal findings Z01.419 ; Encounter for screening mammogram for malignant neoplasm of breast Z12.31 ; Age-related osteoporosis without current pathological fracture M81.0 and Postmenopausal atrophic vaginitis N95.2 Assessments Encounter Date Diagnosis (ICD Code) Assessment Notes Treatment Notes Treatment Clinical Notes Section Notes 03/06/2024 Encounter for gynecological examination (general) (routine) without abnormal findings (ICD-10 - Z01.419) NO MORE PAP TESTS. 03/06/2024 Encounter for screening mammogram for malignant neoplasm of breast (ICD-10 - Z12.31) REGULAR MAMMOGRAMS AND SBE'S WERE RECOMMENDED. 03/06/2024 Age-related osteoporosis without current pathological fracture (ICD-10 - M81.0) DISCUSSED WORSENING BMD AND OSTEOPOROSIS AND ITS IMPACT ON HER HEALTH. ADEQUATE CALCIUM AND VIT D. WEIGHT BEARING EXERCISES. OSTEO PRECAUTIONS. CONTINUE SEEING DR KHAN AND USING [facility]. REPEAT BMD IN 2025. 03/06/2024 Postmenopausal atrophic vaginitis (ICD-10 - N95.2) DISCUSSED FINDINGS, DX AND TX OPTIONS. PAT IS ASYMPTOMATIC. Plan Of Treatment Pending Test Test Name Order Date MAMMOGRAM, SCREENING 08/10/2014 MAMMOGRAM, SCREENING 12/02/2016 MAMMOGRAM, SCREENING 02/27/2022 MAMMOGRAM, SCREENING 03/02/2023 MAMMOGRAM, SCREENING 03/06/2024 MAMMOGRAM, SCREENING 11/21/2015 Bone Density 08/10/2014 Urinalysis 02/03/2019 THIN PREP,HPV,DAMIEN IF HPV+ (>29YR)(DIAG) 02/03/2019 BONE DENSITY 02/08/2020 BONE DENSITY 02/25/2021 BONE DENSITY 02/03/2019 BONE DENSITY 12/02/2016 BONE DENSITY 03/02/2023 MM Digital Mammo Screening 03/02/2023 MM Digital Mammo Screening 11/21/2015 MM Digital Mammo Screening 03/06/2024 MM Digital Mammo Screening 12/02/2016 MM Digital Mammo Screening 02/27/2022 MM Digital Mammo Screening 02/25/2021 Insurance Providers Payer Name Payer Address Payer Phone Subscriber Number Group Number Insured Name Patient Relationship to Insured Coverage Start Date Coverage End Date MEDICARE [address] REMY ROGERS [id number] KRISTIAN CARRASCO Self - patient is the insured [employer] [address] [place] [address] [id number] KRISTIAN CARRASCO Self - patient is the insured Medical (General) History Medical History History ICD Code Hyperlipidemia, unspecified E78.5 Age-related osteoporosis without current pathological fracture M81.0 Menopausal and female climacteric states N95.1 Postmenopausal atrophic vaginitis N95.2 Cerebral infarction, unspecified I63.9 Abscess of vulva N76.4 Surgical History Surgery Date(Month/Year) Breast Reduction 2010 Colonoscopy Retina Eye Surgery Hospitalization History Reason Date(Month/Year)
--- OUTSIDE RECORDS SUMMARY | 2024-06-07 10:00 | XMS_ITS ---
Author Organization [facility] Address [address] [place] [address] Care Team Providers Care Hydraulic Repairer Name Role Phone TRISTON GARCIA M.D. Primary Care Provide Laine Monahan Unavailable [phone] Allergies Allergen (clinical drug ingredient) Drug/Non Drug Allergy documented on EMR Reaction Allergy Type Onset Date Status peanut allergenic extract Peanut (Diagnostic) Throat Closes Drug Allergy Active REASON FOR VISIT LR MEDICARE PE, Annual ENGINEER THIRD ASSISTANT Physical 60-85+ Medications Medication SIG (Take, Route, [...] user? No Vital Signs Height 60.8 in 03/06/2024 Weight 116 lbs 03/06/2024 BMI 22.06 kg/m2 03/06/2024 Blood pressure systolic 128 mm Hg 03/06/20 24 Blood pressure diastolic 80 mm Hg 024 Temperature 97.7 degrees Fahrenheit 03/06/20 24 Encounters Encounter Location Date Provider Diagnosis [facility] [address] [place] [address] 03/06/2024 Laine Seth Encounter for gynecological examination [...] OPTIONS. PAT IS ASYMPTOMATIC. Plan Of Treatment Treatment Notes Assessment Notes Encounter for gynecological examination (general) (routine) without abnormal findings NO MORE PAP TESTS. Encounter for screening mamm ogram for malignant neoplasm of breast REGULAR MAMMOGRAMS AND SBE'S WERE RECOMMENDED. Age-related osteoporosis wit hout current pathological fracture DISCUSSED WORSENING BMD AND OSTEOPOROSIS AND ITS IMPACT ON HER HEALTH. ADEQUATE CALCIUM AND VIT D. WEIGHT BEARING EXERCISES. OSTEO PRECAUTIONS. CONTINUE SEEING DR KHAN AND USING FORTEO. REPEAT BMD IN 2025. Postmenopausal atrophic vaginitis DISCUSSED FINDINGS, DX AND TX OPTIONS. PAT IS ASYMPTOMATIC. Pending Test Test Name Order Date MAMMOGRAM, SCREENING 03/06/2024 MM Digital Mammo Screening 03/06/2024 Next Appt Details Follow Up: 1 Year, Reason: Progress Notes * KRISTIAN CARRASCODOB :1950 (73 yo F)Acc No.[id number]:03/06/2024 PROGRESS NOTES Patient:?KRISTIAN CARRASCO Appointment Provider:?Laine loza M.D. :1950???Age:73 Y???Sex:Female D ate:03/06/2024 Address: [address], , [id number] Pcp:Ye ZAVALA. Subjective: * Chief Complaints: * ???LR MEDICARE PEAnnual ENGINEER THIRD ASSISTANT Physical 60-85+ * HPI: ???New/Follow-up Patient Consult:? PAT ENTERED MENOPAUSE IN HER 50'S.? SHE IS NOT SEXUALLY ACTIVE. SHE SUFFERED CVA IN 2018 BUT HAS RECOVERED FULLY. S/P BILATERAL BREAST REDUCTION YEARS AGO. HER LAST MAMMOGRAM DONE IN AUGUST 2023 SHOWED BREASTS ARE NOT DENSE AND WAS NORMAL. HER LAST PAP TEST IN 2018 WAS NEGATIVE AND HPV NEGATIVE.? SHE HAS NO HX OF ABNORMAL PAP TESTS. HER LAST BMD IN 2023 SHOWED SLIGHT WORSENING OF HER BMD IN THE SPINE FROM -3.1 IN 2021 TO -3.4 IN 2023.? SHE SEES DR KHAN AND IS NOW ON FORTE.? SHE IS TOLERATING THIS WELL. SHE HAD A COLONOSCOPY DONE IN 2021. MODERNA X 3. ???Annual:? Patient presents for annual exam, ages 60-85, postmenopausal. ?General Health Maintenance:?Current breast complaints:?no breast pain, mass, discharge, or skin changes ?Urinary problems:?patient reports no urinary health problems or bowel health problems ?Calcium intake:?takes adequate calcium via diet and supplementation ?Significant ENGINEER THIRD ASSISTANT problems:?no significant market developer symptoms or problems * ROS:?general:?no?chest pain.?no?palpitations.?no?headache.?no?cough.?no?shortness of breath.?no?fever.?no?unexplained weight loss.?no?nausea/vomiting.?no?change in bowel movements.?no blood in stool.?no?genitourinary complaints.?no?skin complaints.? * Medical History:? 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 Control:?[place].?Colonoscopy?yes, 06/2017, BENIGN polyps 06/2014.?Bone Density:?04/27/23, 2021, 04/20/21, 04/15/17, 2011.? * OB History:?Total pregnancies?1.?Total [...] single. ?Natural support system: yes. ?Occupation: Retired. ?Sexually active: no. * Medications:?TakingAtorvasta tin Calcium 20 MG Tablet 1 tablet Orally Once a day Aspirin 81 MG Tablet Delayed Release Orally Multimineral Plus - Tablet 1 tablet Orally Twice a week Medication List reviewed and reconciled with the patientTaking Atorvastatin Calcium 20 MG Tablet 1 tablet Orally Once a day Taking Aspirin 81 MG Tablet Delayed Release Orally Taking Multimineral Plus - Tablet 1 tablet Orally Twice a week Medication List reviewed and reconciled with the patient * Allergies:?Peanut (Diagnosti c): Throat Closes - Allergy - Criticality Highno[Allergies Verified] Objective: * Vitals:?Ht: 60.8 in, Wt: 116 lbs, BMI:22.06Index, BP: 128/80 mm Hg, Temp: 97.7 F. * Examination: ???General Exam: ?CONSTITUTIONAL:?NECK/THYROID:?RESPIRATORY:?Auscultation: clear to auscultation bilaterally, Respiratory Effort: normal.?CARDIOVASCULAR:?Auscultation: regular rate and rhythm.?BREAST, Right:?BREAST, Left:?GASTROINTESTINAL:?MUSCULOSKELETAL:?SKIN:?NEURO/PSYCH:?Genitourinary: ?EXTERNAL GENITALIA:?VAGINA:?BLADDER:?URETHRA:?CERVIX:?UTERUS:?ADNEXA:?ANUS AND PERINEUM:? Assessment: * Assessment: 1.?Encounter for gynecologic al examination (general) (routine) without abnormal findings - Z01.419???2.?Encounter for screening mammogram for malignant neoplasm of breast - Z12.31???3.?Age-related osteoporosis without current pathological fracture - M81.0???4.?Postmenopausal atrophic vaginitis - N95.2??? Plan: * Treatment: 2.?Encounter for screening m ammogram for malignant neoplasm of breast?Imaging: MM Digital Mammo Screening Notes: REGULAR MAMMOGRAMS AND SBE'S WERE RECOMMENDED.?? 3.?Age-related osteoporosis without current pathological fracture? Notes: DISCUSSED WORSENING BMD AND OSTEOPOROSIS AND ITS IMPACT ON HER HEALTH. ADEQUATE CALCIUM AND VIT D. WEIGHT BEARING EXERCISES. OSTEO PRECAUTIONS. CONTINUE SEEING DR KHAN AND USING FORTEO. REPEAT BMD IN 2025.?? 4.?Postmenopausal atrophic v aginitis? Notes: DISCUSSED FINDINGS, DX AND TX OPTIONS. PAT IS ASYMPTOMATIC.?? * Imaging:? * ?Imaging: MAMMOGRAM, SCR EENING * Procedure Codes:? * Preventive Medicine:? ??YOUR PREVENTIVE WELLNESS PLAN:?Osteoporosis prevention?Calcium, D, strength training.?Breast Cancer Screening (Mammogram):?annually.?Cervical Cancer Screening (Pap Smear):?q 3 years with HPV screen.?Colorectal Cancer Screening:?q 10 years.? * Follow Up:?1 Year * Images: Billing Information: * Visit Code:? [id number] Preventive Care Est Pt. Age 65 and over. * Procedure Codes:? * Sign off status: Completed true * Appointment Provider:?Laine Seth M.D. Date:?03/06/2024 Generated for Shlomo murguia/Diaz/eTransmitting on:?06/07/2024 10:00 AM EST History and Physical Notes * HPI (History of Present Illness) Category Sub-Category Detail Notes Category Not es New/Follow-up Patient Consult PAT ENTERED MENOPAUSE IN HER 50'S. SHE IS NOT SEXUALLY ACTIVE. SHE SUFFERED CVA IN 2019 BUT HAS RECOVERED FULLY. S/P BILATERAL BREAST REDUCTION YEARS AGO. HER LAST MAMMOGRAM DONE IN AUGUST 2023 SHOWED BREASTS ARE NOT DENSE AND WAS NORMAL. HER LAST PAP TEST IN 2019 WAS NEGATIVE AND HPV NEGATIVE. SHE HAS NO HX OF ABNORMAL PAP TESTS. HER LAST BMD IN 2023 SHOWED SLIGHT WORSENING OF HER BMD IN THE SPINE FROM -3.1 IN 2021 TO -3.4 IN 2023. SHE SEES DR KHAN AND IS NOW ON FORTE. SHE IS TOLERATING THIS WELL. SHE HAD A COLONOSCOPY DONE IN 2021. MODERNA X 3. Annual General Health Maintenance: Current breast complaints:: no breast pain, mass, discharge, or skin changes Urinary problems:: patient r eports no urinary health problems or bowel health problems Calcium intake:: takes adequ ate calcium via diet and supplementation Significant ENGINEER THIRD ASSISTANT problems:: n o significant market developer symptoms or problems Examination Category Sub-Category Detail [...]
--- OUTSIDE RECORDS SUMMARY | 2024-06-07 10:01 | XMS_ITS | Patient Health Record ---
Author Organization [facility] Address [address] [place] [address] Care Team Providers Care Debeaker Name Role Phone PCP, Need a referral to Primary Care Provider Un available Allergies Allergen (clinical drug ingredient) Drug/Non Drug Allergy documented on EMR Reaction Allergy Type Onset Date Status peanuts (uncoded) Unknown Allergy Ac tive Reason For Referral No Information Medications Medication SIG (Take, Route, Frequency, Duration) Notes Start Date End Date Status Aspirin 81 Active Lipitor 80 mg Active Social History Tobacco Use: Social History Observation Description Date Details (start date - stop date) Never Smoker NA - NA Tobacco Use/Smoking Question Answer Notes You are a nonsmoker Plan Of Treatment No Information Insurance Providers Payer Name Payer Address Payer Phone Subscriber Number Group Number Insured Name Patient Relationship to Insured Coverage Start Date Coverage End Date C[employer] [address] [place] [address] [id number] KRISTIAN CARRASCO Self - patient is the insured Medical (General) History Medical History History ICD Code stroke on 09/19/2018 high cholesterol
[2024-06-07 10:04] VITALS: BP 136/72; BMI 22.7
== END 2024-06-07 10:45 | disposition home or self-care (01) ==
PROVIDERS: PCP Internal Medicine; Visit Provider Internal Medicine
DX: Z00.00 Encounter for general adult medical examination without abnormal findings (principal); M79.641 Pain in right hand; M79.642 Pain in left hand; I63.512 Cerebral infarction due to unspecified occlusion or stenosis of left middle cerebral artery; M54.6 Pain in thoracic spine; L60.9 Nail disorder, unspecified

== ENCOUNTER → 2024-06-07 09:40 | Outpatient (BNVA) | payer MEDICARE, OTHER, SELFPAY | PROVIDERS: PCP Internal Medicine; Visit Provider Internal Medicine | DX: Z00.01 Encounter for general adult medical examination with abnormal findings (principal); L60.9 Nail disorder, unspecified; M79.641 Pain in right hand; M79.642 Pain in left hand; M54.6 Pain in thoracic spine; I63.512 Cerebral infarction due to unspecified occlusion or stenosis of left middle cerebral artery | CPT/HCPCS: 96127; 99212 ==

== ENCOUNTER 2024-06-08 08:54 | Outpatient (REF) | payer MEDICARE, OTHER, SELFPAY ==
--- OUTSIDE RECORDS SUMMARY | 2024-06-08 09:28 | XMS_ITS ---
Author Organization [facility] Address [address] [place] [address] Care Team Providers Care Executive Sales Assistant Name Role Phone TRISTON GARCIA M.D. Primary Care Provide Laine Monahan Unavailable [phone] Allergies Allergen (clinical drug ingredient) Drug/Non Drug Allergy documented on EMR Reaction Allergy Type Onset Date Status peanut allergenic extract Peanut (Diagnostic) Throat Closes Drug Allergy Active REASON FOR VISIT INTERVAL BREAST & PELVIC, Annual WINDOWS VMWARE ADMINISTRATOR Physical 60-85+ Medications Medication SIG (Take, Route, [...] an other tobacco user? No Vital Signs Temperature 97.5 degrees Fahrenheit 03/02/20 23 Blood pressure systolic 132 mm Hg 03/02/20 23 Blood pressure diastolic 80 mm Hg 023 Height 60.8 in 03/02/2023 Weight 116 lbs 03/02/2023 BMI 22.06 kg/m2 03/02/2023 Encounters Encounter Location Date Provider Diagnosis [facility] [address] [place] [address] 03/02/2023 Laine Hayesva Encounter for screening mammogram [...] * KRISTIAN CARRASCODOB :1950 (72 yo F)Acc No.[id number]:03/02/2023 PROGRESS NOTES Patient:?KRISTIAN CARRASCO Appointment Provider:?Laine loza M.D. :1950???Age:72 Y???Sex:Female D ate:03/02/2023 Address: [address] , [id number] Pcp:Ye ZAVALA Subjective: * Chief Complaints: * ???INTERVAL BREAST & PELVICA nnual WINDOWS VMWARE ADMINISTRATOR Physical 60-85+ * HPI: ???New/Follow-up Patient Consult:? [...] adequate calcium via diet and supplementation ?Significant WINDOWS VMWARE ADMINISTRATOR problems:?no significant clam shovel operator symptoms or problems * ROS:?general:?no?chest pain.?no?palpitations.?no?headache.?no?cough.?no?shortness of breath.?no?fever.?no?unexplained weight loss.?no?nausea/vomiting.?no?change in bowel movements.?no blood in stool.?no?genitourinary complaints.?no?skin complaints.? * Medical History:? 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 36238 Preventive Care Est Pt. Age 65 and over. * Procedure Codes:? * Sign off status: Completed true * Appointment Provider:?Laine Seth M.D. Date:?03/02/2023 Generated for Shlomo murguia/Diaz/eTleonardasmitting on:?06/08/2024 09:28 AM EST History and Physical Notes * [...] ate calcium via diet and supplementation Significant WINDOWS VMWARE ADMINISTRATOR problems:: n o significant clam shovel operator symptoms or problems Examination Category Sub-Category Detail Notes Category Not es General Exam CONSTITUTIONAL: General Appearan ce:: alert, in no acute distress, normal, well nourished NECK/THYROID: Thyroid:: normal size and shape Inspection/Palpation:: normal RESPIRATORY: Auscultation: clear to auscultation bilaterally, Respiratory Effort: normal CARDIOVASCULAR: Auscultation: regula r rate and rhythm GASTROINTESTINAL: Hernias:: no hernias present, no inguinal adenopathy Liver and Spleen:: normal Abdomen:: no masses, nontender, nondiste nded MUSCULOSKELETAL: Inspection/Palpation:: no clubb ing, cyanosis, or edema SKIN: Skin:: normal NEURO/PSYCH: Mood/Affect:: normal Orientation:: time , place, person BREAST, Right: Inspection/Palpation :: no discharge, no [...]
--- OUTSIDE RECORDS SUMMARY | 2024-06-08 09:29 | XMS_ITS ---
Author Organization [facility] Address [address] [place] [address] Care Team Providers Care Numerical Control Machine Machinist Name Role Phone TRISTON GARCIA M.D. Primary Care Provide Laine Monahan Unavailable [phone] Allergies Allergen (clinical drug ingredient) Drug/Non Drug Allergy documented on EMR Reaction Allergy Type Onset Date Status peanut allergenic extract Peanut (Diagnostic) Throat Closes Drug Allergy Active REASON FOR VISIT LR MEDICARE PE, Annual COMMERCIAL SINGER Physical 60-85+ Medications Medication SIG (Take, Route, [...] other tobacco user? No Vital Signs Temperature 97.7 degrees Fahrenheit 03/06/20 24 Blood pressure systolic 128 mm Hg 03/06/20 24 Blood pressure diastolic 80 mm Hg 024 Height 60.8 in 03/06/2024 Weight 116 lbs 03/06/2024 BMI 22.06 kg/m2 03/06/2024 Encounters Encounter Location Date Provider Diagnosis [facility] [address] [place] [address] 03/06/2024 Laine Seth Encounter for gynecological examination [...] * KRISTIAN CARRASCODOB :1950 (73 yo F)Acc No.[id number]:03/06/2024 PROGRESS NOTES Patient:?KRISTIAN CARRASCO Appointment Provider:?Laine loza M.D. :1950???Age:73 Y???Sex:Female D ate:03/06/2024 Address: [address], , [place] Pcp:Ye ZAVALA. Subjective: * Chief Complaints: * ???LR MEDICARE PEAnnual COMMERCIAL SINGER Physical 60-85+ * HPI: ???New/Follow-up Patient Consult:? [...] adequate calcium via diet and supplementation ?Significant COMMERCIAL SINGER problems:?no significant adjunct professor of law symptoms or problems * ROS:?general:?no?chest pain.?no?palpitations.?no?headache.?no?cough.?no?shortness of breath.?no?fever.?no?unexplained weight loss.?no?nausea/vomiting.?no?change in bowel movements.?no blood in stool.?no?genitourinary complaints.?no?skin complaints.? * Medical History:? 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 Control:?[place].?Colonoscopy?yes, 06/2017, BENIGN polyps 06/2014.?Bone Density:?04/27/23, 2021, 04/20/21, [...] * Images: Billing Information: * Visit Code:? 39457 Preventive Care Est Pt. Age 65 and over. * Procedure Codes:? * Sign off status: Completed true * Appointment Provider:?Laine Seth M.D. Date:?03/06/2024 Generated for Shlomo murguia/Diaz/eTransmitting on:?06/08/2024 09:28 AM EST History and Physical [...] ate calcium via diet and supplementation Significant COMMERCIAL SINGER problems:: n o significant adjunct professor of law symptoms or problems Examination Category Sub-Category Detail [...]
--- OUTSIDE RECORDS SUMMARY | 2024-06-08 09:29 | XMS_ITS | Patient Health Record ---
Author Organization [facility] Address [address] [place] [address] Care Team Providers Care Barrel Straightener Name Role Phone PCP, Need a referral [...] Date Coverage End Date C[employer] [address] [place] [id number] KRISTIAN CARRASCO Self - patient is the insured Medical (General) History Medical History History ICD Code stroke on 09/19/2018 high cholesterol
--- OUTSIDE RECORDS SUMMARY | 2024-06-08 09:29 | XMS_ITS | Patient Health Record ---
Author Organization [facility] Address [address] [place] [address] Care Team Providers Care Respite Coordinator Name Role Phone TRISTON GARCIA M.D. Primary Care Provide Laine Monahan Unavailable [phone] Allergies Allergen (clinical drug ingredient) Drug/Non Drug [...] Status Risk Notes Problem Postmenopausal atrophic vaginitis (99570557) Postmenopausal atrophic vaginitis (N95.2) Active confirmed Problem Age-related osteoporosis (877812510) Age-related osteoporosis without current pathological fracture (M81.0) Active confirmed Problem Screening for malignant neoplasm of breast (291832685) Encounter for screening mammogram for malignant neoplasm of breast (Z12.31) Active confirmed Problem Hyperlipidemia (92160170) Other and unspecified hyperlipidemia (272.4) Active confirmed Major Problem Menopausal symptom (57214682) Symptomatic menopausal or female climacteric states (627.2) Active confirmed Major Problem Osteoporosis (41455680) Unspecified osteoporosis (733.00) Active confirmed Major Problem Gynecological examination normal (870097314877905) Routine gynecological examination (V72.31) Active confirmed Problem Screening for malignant neoplasm of colon (745982976) Special screening for malignant neoplasms, colon (V76.51) Active confirmed Major Vital Signs Temperature 97.7 degrees Fahrenheit 03/06/2024 Blood pressure diastolic 80 mm Hg 03/06/2024 Height 60.8 in 03/06/2024 Blood pressure systolic 128 mm Hg 03/06/2024 Weight 116 lbs 03/06/2024 BMI 22.06 kg/m2 03/06/2024 Encounters Encounter Location Date Provider Diagnosis [address] [place] [address] 03/06/2024 Laine Seth Encounter for gynecological examination [...] Order Date MAMMOGRAM, SCREENING 08/10/2014 MAMMOGRAM, SCREENING 02/27/2022 MAMMOGRAM, SCREENING 03/02/2023 MAMMOGRAM, SCREENING 03/06/2024 MAMMOGRAM, SCREENING 12/02/2016 MAMMOGRAM, SCREENING 11/21/2015 Bone Density 08/10/2014 Urinalysis 02/03/2019 THIN PREP,HPV,DAMIEN IF HPV+ (>29YR)(DIAG) 02/03/2019 BONE DENSITY 02/08/2020 BONE DENSITY 02/25/2021 BONE DENSITY 02/03/2019 BONE DENSITY 12/02/2016 BONE DENSITY 03/02/2023 MM Digital Mammo Screening 11/21/2015 MM Digital Mammo Screening 12/02/2016 MM Digital Mammo Screening 03/06/2024 MM Digital Mammo Screening 03/02/2023 MM Digital Mammo Screening 02/27/2022 MM Digital Mammo Screening 02/25/2021 Insurance Providers Payer Name Payer Address Payer Phone Subscriber Number Group Number Insured Name Patient Relationship to Insured Coverage Start Date Coverage End Date MEDICARE [address] [place] [id number] KRISTIAN CARRASCO Self - patient is the insured [employer] [address] [place] [address] [id number] KRISTIAN CARRASCO Self - patient is [...]
--- OUTSIDE RECORDS SUMMARY | 2024-06-08 09:29 | XMS_ITS | Patient Health Record ---
[facility] [place] Address [address] [place] [address] Care Team Providers Care Bartender Name Role Phone Ten QUIROZ, Nikos Primary Care Provider Unavailable Blanche Newell Unavailable [phone] Allergies Allergen (clinical drug ingredient) Drug/Non Drug [...] Problem Status W/U Status Risk Notes Problem [id number] Hallux valgus (acquired), left foot (M20.12) Active confirmed Problem [id number] Hallux valgus (acquired), right foot (M20.11) Active confirmed Plan Of Treatment No Information Insurance Providers Payer Name Payer Address Payer Phone Subscriber Number Group Number Insured Name Patient Relationship to Insured Coverage Start Date Coverage End Date Medicare [employer] [address] [place] [address] [id number] Lili Pathak Self - patient is the insured [facility] [address] [place] [address] [id number] Lili Pathak Self - patient is the insured Medical (General) History Medical History History ICD Code Osteoporosis Stroke Surgical History Surgery Date(Month/Year) breast augmentation Retina
[2024-06-08 10:41] LABS: Alanine Aminotransferase 28 U/L (0-31); Albumin Level 4.1 g/dL (3.5-5.0); Alkaline Phosphatase 103 U/L (39-117); Anion Gap 14 (12-20); Aspartate Amino Transferase 19 U/L (5-31); Bilirubin Total 0.8 mg/dL (0.0-1.0); Blood Urea Nitrogen 14 mg/dL (9-16); Carbon Dioxide 25 mmol/L (22-29); Chloride 110 mmol/L (96-108); Cholesterol 150 mg/dL (<200); Estimated Glomerular Filt Rate > 60; Glucose Fasting 88 mg/dL (60-99); HDL Cholesterol 56 mg/dL (>40); LDL Cholesterol Calculated 83 mg/dL (<100); Potassium 4.7 mmol/L (3.3-5.1); Sodium 144 mmol/L (135-145); Total Protein 7.5 g/dL (6.5-8.0); Triglycerides 58 mg/dL (<150)
== END 2024-06-08 08:55 | disposition home or self-care (01) ==
LOC: HO.LAB 08:54
PROVIDERS: Internal Medicine; PCP Physician Assistant; Visit Provider Physician Assistant
DX: Z00.00 Encounter for general adult medical examination without abnormal findings (principal); E78.5 Hyperlipidemia, unspecified
CPT/HCPCS: 36415; 80053; 80061

== ENCOUNTER 2024-07-24 08:13 | Outpatient (REF) | payer MEDICARE, OTHER, SELFPAY ==
--- NOTE | ~2024-07-24 | XR_ITS ---
EXAMINATION: XR HAND 3 OR MORE VIEWS RIGHT HISTORY: M79.641 - Pain in right hand COMPARISON: There are no prior studies available for comparison. FINDINGS: Four views of the right hand are submitted. The bones are osteopenic. There is no fracture or dislocation. There is moderate osteoarthritis of the DIP joints with joint space narrowing and osteophyte formation. Milder changes are noted involving the PIP joints. There is mild narrowing of the 1st carpometacarpal joint. The soft tissues are unremarkable. XR/XR hand RT min 3V IMPRESSION: Osteopenia. Osteoarthritis of the right hand as described. Electronically signed by: Juan Lopez MD 07/25/2024 07:17 AM EDT
--- NOTE | ~2024-07-24 | XR_ITS ---
EXAMINATION: XR HAND 3 OR MORE VIEWS LEFT HISTORY: M79.642 - Pain in left hand COMPARISON: There are no prior studies available for comparison. FINDINGS: Four views of the left hand are submitted. The bones are osteopenic. There is no fracture or dislocation. There is moderate osteoarthritis of the DIP joints with joint space narrowing and osteophyte formation. There are milder changes noted involving the PIP joints. There is moderate osteoarthritis of the 1st carpometacarpal joint with joint space narrowing and osteophyte formation. The soft tissues are unremarkable. XR/XR hand LT min 3V IMPRESSION: Osteoarthritis of the left hand as described. Electronically signed by: Juan Lopez MD 07/25/2024 07:15 AM EDT
--- OUTSIDE RECORDS SUMMARY | 2024-07-24 08:32 | XMS_ITS ---
Author Organization [facility] Address [address] [place] [address] Care Team Providers Care Brokerage Purchase And Sale Clerk Name Role Phone TRISTON GARCIA M.D. 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 [address] [place] [address] 03/02/2023 Laine Hayesva Encounter for screening mammogram [...] * KRISTIAN CARRASCODOB :1950 (72 yo F)Acc No.[id number]:03/02/2023 PROGRESS NOTES Patient:?KRISTIAN CARRASCO Appointment Provider:?Laine loza M.D. :1950???Age:72 Y???Sex:Female D ate:03/02/2023 Address: [address] , [place] Pcp:Ye ZAVALA Subjective: * Chief Complaints: * ???INTERVAL BREAST & PELVICA nnual SALES ENGINEER ENGINEERED PRODUCTS Physical 60-85+ * HPI: ???New/Follow-up Patient Consult:? [...] adequate calcium via diet and supplementation ?Significant SALES ENGINEER ENGINEERED PRODUCTS problems:?no significant appliance counselor symptoms or problems * ROS:?general:?no?chest pain.?no?palpitations.?no?headache.?no?cough.?no?shortness of breath.?no?fever.?no?unexplained weight loss.?no?nausea/vomiting.?no?change in bowel movements.?no blood in stool.?no?genitourinary complaints.?no?skin complaints.? * Medical History:? * Program Technician History:?/ Para?/.?Sexual activity?not currently sexually active.?Last Pap Smear:?02/03/19 NIL, NEG HRHPV, 08/10/14 NEG HRHPV, 12/05/11.?Mammogram:?11/2022 [place], 11/18/21 < 50% density, 11/15/20 < 50% density, 11/09/19 < 50% density, 01/16/19 50-75% density, 01/12/18 < 50% density, 03/2016, 09/2014.?LMP and menses?[place].? Control:?[place].?Colonoscopy?yes, 06/2017, BENIGN polyps 06/2014 .?Bone Density:?2021, 04/20/21, [...] 1 capsule Orally Three x a dayDiscontinued Shafer 3 120- 180 MG Capsule 1 capsule Orally Once a dayDiscontinued Multivitamin & Mineral - Liquid as directed Orally Medication List reviewed and reconciled with the patient * Allergies:?Peanut (Diagnosti c): Throat Closes - Allergy - Criticality Highno[Allergies Verified] Objective: * Vitals:?Ht: 60.8 in, Wt:116 lbs, BMI:22.06 Index, BP:132/80 mm Hg, Temp:97.5 F. * Examination: ???General Exam: ?CONSTITUTIONAL:?General Appearance:?alert, in no acute distress, normal, well nourished ?NECK/THYROID:?Inspection/Palpation:?normal ?Thyroid:?normal size and shape ?RESPIRATORY:?Auscultation: clear to auscultation bilaterally, Respiratory Effort: normal.?CARDIOVASCULAR:?Auscultation: regular rate and rhythm.?BREAST, Right:?Inspection/Palpation:?no discharge, no masses present, no nipple retraction, no skin changes, no skin dimpling, no tenderness, no lymphadenopathy, no axillary mass, no axillary tenderness ?BREAST, Left:?Inspection/Palpation:?no discharge, no masses present, no nipple retraction, no skin changes, no skin dimpling, no tenderness, no lymphadenopathy, no axillary mass, no axillary tenderness ?GASTROINTESTINAL:?Abdomen:?no masses, nontender, nondistended ?Liver and Spleen:?normal ?Hernias:?no hernias present, no inguinal adenopathy ?MUSCULOSKELETAL:?Inspection/Palpation:?no clubbing, cyanosis, or edema ?SKIN:?Skin:?normal ?NEURO/PSYCH:?Orientation:?time , place, person ?Mood/Affect:?normal?Genitourinary: ?EXTERNAL GENITALIA:?External Genitalia:?normal, no lesions ?VAGINA:?Vagina:?atrophic vaginal tissue, minimal moisture ?BLADDER:?Bladder:?no mass, nontender ?URETHRA:?Urethra:?no erythema or lesions present ?CERVIX:?Cervix:?no lesions, nontender ?UTERUS:?Uterus:?nontender, normal contour, normal mobility, normal size ?ADNEXA:?Adnexa:?no masses, no tenderness ?ANUS AND PERINEUM:?Anus/Perineum:?visually normal??? Assessment: * Assessment: 1.?Encounter for screening m [...] * Images: Billing Information: * Visit Code:? 25521 Preventive Care Est Pt. Age 65 and over. * Procedure Codes:? * Sign off status: Completed true * Appointment Provider:?Laine Seth M.D. Date:?03/02/2023 Generated for Shlomo murguia/Diaz/eTransmitting on:?07/24/2024 08:32 AM EDT History and Physical Notes * HPI (History [...] ate calcium via diet and supplementation Significant SALES ENGINEER ENGINEERED PRODUCTS problems:: n o significant appliance counselor symptoms or problems Examination Category Sub-Category Detail [...]
--- OUTSIDE RECORDS SUMMARY | 2024-07-24 08:33 | XMS_ITS ---
Author Organization [facility] Address [address] [place] [address] Care Team Providers Care Anesthesia Tech Name Role Phone TRISTON GARCIA M.D. Primary Care Provide Laine Monahan Unavailable [phone] Allergies Allergen (clinical drug ingredient) Drug/Non Drug Allergy documented on EMR Reaction Allergy Type Onset Date Status peanut allergenic extract Peanut (Diagnostic) Throat Closes Drug Allergy Active REASON FOR VISIT LR MEDICARE PE, Annual FISHER OYSTER Physical 60-85+ Medications Medication SIG (Take, Route, [...] 03/06/2024 Encounters Encounter Location Date Provider Diagnosis [facility] [address] [place] [address] 03/06/2024 Laine Seth Encounter for gynecological examination [...] * KRISTIAN CARRASCODOB :1950 (73 yo F)Acc No.[id number]:03/06/2024 PROGRESS NOTES Patient:?KRISTIAN CARRASCO Appointment Provider:?Laine loza M.D. :1950???Age:73 Y???Sex:Female D ate:03/06/2024 Address: [address], , [place] Pcp:Ye ZAVALA. Subjective: * Chief Complaints: * ???LR MEDICARE PEAnnual FISHER OYSTER Physical 60-85+ * HPI: ???New/Follow-up Patient Consult:? [...] adequate calcium via diet and supplementation ?Significant FISHER OYSTER problems:?no significant harness builder symptoms or problems * ROS:?general:?no?chest pain.?no?palpitations.?no?headache.?no?cough.?no?shortness of breath.?no?fever.?no?unexplained weight loss.?no?nausea/vomiting.?no?change in bowel movements.?no blood in stool.?no?genitourinary complaints.?no?skin complaints.? * Medical History:? * Counselor Nurses' Association History:?/ Para?1/1.?Sexual activity?not currently sexually active.?Last Pap Smear:?02/03/19 NIL, NEG HRHPV, 08/10/14 NEG HRHPV, 12/05/11.?Mammogram:?09/06/23 < 50% density, 11/2022 [place], 11/18/21 < 50% density, 11/15/20 < 50% density, 11/09/19 < 50% density, 01/16/19 50-75% density, 01/12/18 < 50% density, 03/2016, 09/2014.?LMP and menses?[place].? Control:?[place].?Colonoscopy?yes, 06/2017, BENIGN polyps 06/2014.?Bone Density:?04/27/23, 2021, 04/20/21, [...] Temp: 97.7 F. * Examination: ???General Exam: ?CONSTITUTIONAL:?General Appearance:?alert, [...] PERINEUM:?Anus/Perineum:?visually normal??? Assessment: * Assessment: 1.?Encounter for gynecologic al [...] * Images: Billing Information: * Visit Code:? 14276 Preventive Care Est Pt. Age 65 and over. * Procedure Codes:? * Sign off status: Completed true * Appointment Provider:?Laine Seth M.D. Date:?03/06/2024 Generated for Shlomo murguia/Diaz/eTransmitting on:?07/24/2024 08:32 AM [...] ate calcium via diet and supplementation Significant FISHER OYSTER problems:: n o significant harness builder symptoms or problems Examination Category Sub-Category Detail [...]
--- OUTSIDE RECORDS SUMMARY | 2024-07-24 08:33 | XMS_ITS | Patient Health Record ---
Author Organization [facility] Address [address] [place] [address] Care Team Providers Care District Court Administrator Name Role Phone PCP, Need a referral [...] Date Coverage End Date [employer] [address] [place] [address] [id number] KRISTIAN CARRASCO Self - patient is the insured Medical (General) History Medical History History ICD Code stroke on 09/19/2018 high cholesterol
--- OUTSIDE RECORDS SUMMARY | 2024-07-24 08:33 | XMS_ITS | Patient Health Record ---
Author Organization [facility] [place] Address [address] [place] [address] Care Team Providers Care Logistics Service Representative Name Role Phone Ten QUIORZ, Nikos Primary Care Provider Unavailable Blanche Newell Unavailable [phone] Allergies Allergen (clinical drug ingredient) Drug/Non Drug [...] Problem Status W/U Status Risk Notes Problem [id number] Hallux valgus (acquired), left foot (M20.12) Active confirmed Problem [id number] Hallux valgus (acquired), right foot (M20.11) Active confirmed Plan Of Treatment No Information Insurance Providers Payer Name Payer Address Payer Phone Subscriber Number Group Number Insured Name Patient Relationship to Insured Coverage Start Date Coverage End Date Medicare National Govt S[employer] [address] [place] [address] [id number] Lili Pathak Self - patient is the insured [facility] [address] [place] [address] [phone] [id number] Lili Pathak Self - patient is the insured Medical (General) History Medical History History ICD Code Osteoporosis Stroke Surgical History Surgery Date(Month/Year) breast augmentation Retina
--- OUTSIDE RECORDS SUMMARY | 2024-07-24 08:33 | XMS_ITS | Patient Health Record ---
Author Organization [facility] Address [address] [place] [address] Care Team Providers Care Lawn Service Supervisor Name Role Phone TRISTON GARCIA M.D. Primary Care Provide Laine Monahan Unavailable [phone] Allergies Allergen (clinical drug ingredient) Drug/Non Drug [...] Status Risk Notes Problem Postmenopausal atrophic vaginitis (64665455) Postmenopausal atrophic vaginitis (N95.2) Active confirmed Problem Age-related osteoporosis (051556051) Age-related osteoporosis without current pathological fracture (M81.0) Active confirmed Problem Screening for malignant neoplasm of breast (301466445) Encounter for screening mammogram for malignant neoplasm of breast (Z12.31) Active confirmed Problem Hyperlipidemia (18363209) Other and unspecified hyperlipidemia (272.4) Active confirmed Major Problem Menopausal symptom (39865347) Symptomatic menopausal or female climacteric states (627.2) Active confirmed Major Problem Osteoporosis (89824072) Unspecified osteoporosis (733.00) Active confirmed Major Problem Gynecological examination normal (549625830039003) Routine gynecological examination (V72.31) Active confirmed Problem Screening for malignant neoplasm of colon (415421114) Special screening for malignant neoplasms, colon (V76.51) Active confirmed Major Vital Signs Temperature 97.7 degrees Fahrenheit 03/06/2024 Blood pressure diastolic 80 mm Hg 03/06/2024 Height 60.8 in 03/06/2024 Blood pressure systolic 128 mm Hg 03/06/2024 Weight 116 lbs 03/06/2024 BMI 22.06 kg/m2 03/06/2024 Encounters Encounter Location Date Provider Diagnosis [address] [place] [address] 03/06/2024 Laine Seth Encounter for gynecological examination [...] Mammo Screening 03/02/2023 [facility] M[facility]o Screening 03/06/2024 [facility] Mammo Screening 12/02/2016 [facility] Digital Mammo Screening 02/27/2022 [facility] Digital Mammo Screening 02/25/2021 [facility] Digital Mammo Screening 11/21/2015 Insurance Providers Payer Name Payer Address Payer Phone Subscriber Number Group Number Insured Name Patient Relationship to Insured Coverage Start Date Coverage End Date MEDICARE [address] REMY ROGERS [id number] KRISTIAN CARRASCO Self - patient is the insured [employer] [address] [place] [address] [id number] KRISTIAN CARRASCO Self - patient is [...]
== END 2024-07-24 08:14 | disposition home or self-care (01) ==
LOC: HO.HOSX 08:13
DX: M79.642 Pain in left hand (principal); M79.641 Pain in right hand; M65.312 Trigger thumb, left thumb; M81.0 Age-related osteoporosis without current pathological fracture
CPT/HCPCS: 73130; 99202

== ENCOUNTER 2024-07-24 09:43 | Outpatient (AMB) | payer MEDICARE, OTHER, SELFPAY ==
--- NOTE | 2024-07-24 10:07 | A.OFFVIS_ITS ---
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 Patient has a history of left hand EMG/NCS done on 07/10/19. Patient reports she currently is having no pain in her hands. Denies numbness and tingling. Past Nov last year she says she noticed her hands beginning to have pain. She is states she has cramping in her bilateral thumbs, left worse than right. She says she has pain at the base of her thumbs. She says she has braces at home that keep her thumbs in extension however these are uncomfortable. She is interested in trying new braces if needed. 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 Patient has a history of left hand EMG/NCS done on 07/10/19. Patient reports she currently is having no pain in her hands. Denies numbness and tingling. Past Nov last year she says she noticed her hands beginning to have pain. She is states she has cramping in her bilateral thumbs, left worse than right. Patient states that the left thumb frequently locks and catches in a flexed position, particularly at the IP joint. She says she has pain at the base of her thumbs. She says she has braces at home that keep her thumbs in extension however these are uncomfortable. She is interested in trying new braces if needed. [facility] Medical History (Updated 07/24/24 @ 12:54 by PHONG Baker) Epistaxis Aphasia Dyslipidemia Osteoporosis Physical exam Surgical History Hx of colonoscopy History of esophagogastroduodenoscopy (EGD) H/O bilateral breast reduction surgery Family History Father CVD (cardiovascular disease) Mother Cancer Daughter No problems noted. Social History Housing: Apartment Alcohol intake: never Patient Tobacco Use Status: Never used Tobacco e-Cigarette/Vaping Use: Never Used Second Hand Smoke Exposure: No service: No Current occupational status: unemployed and disabled Cognitive needs: No Hearing needs: No Vision needs: Yes Review of Systems Const All systems reviewed & are unremarkable except as noted in HPI and below Physical Exam Vital Signs: BMI result Body Mass Index 22.5 Extrem Other: Patient is alert, oriented, and in no acute distress. Neuro: Normal sensation of the tips of all digits of the bilateral hand at this time Vascular: Cap refill brisk Pain: No tenderness to palpation of the A1 katelynn of bilateral thumbs Minimal discomfort with range of motion of bilateral hands ROM: There is a visible and palpable locking and catching of the left thumb Patient is able to flex and extend all other digits of bilateral hands fully and without difficulty Skin: No lacerations or abrasions. General: No ecchymosis, erythema, or evidence of infection. Psych: Appears grossly normal Affect normal Attitude cooperative Assessment & Plan Assessment & Plan (1) Trigger thumb, left thumb: Code(s): M65.312 - Trigger thumb, left thumb Category: Medical (2) Arthritis of carpometacarpal (CMC) joint of both thumbs: Code(s): M18.0 - Bilateral primary osteoarthritis of first carpometacarpal joints Category: Medical Plan 1. Trigger thumb, left thumb 2. Bilateral basal joint arthritis Patient is educated about this condition Patient is educated about the treatment options available At this time, patient would like to hold off on any acute intervention, as she has been attending occupational therapy and feels this is helping Patient was advised she should call us if she is interested in any further intervention for her trigger thumb or basal joint arthritis, namely steroid injections and/or surgical intervention Patient was amenable to this plan Follow-up as needed with any acute concerns Orders: Orders XR hand LT min 3V Today M79.642 - Pain in left hand XR hand RT min 3V Today M79.641 - Pain in right hand Coding Level of Care Code New Pt Level 3 (83336) Diagnoses Trigger thumb, left thumb M65.312 Arthritis of carpometacarpal (CMC) joint of both thumbs M18.0
[2024-07-24 10:08] VITALS: BMI 22.5
== END 2024-07-24 10:29 | disposition home or self-care (01) ==
LOC: HO.HOS 09:44
PROVIDERS: PCP Physician Assistant
DX: M65.312 Trigger thumb, left thumb (principal); M18.0 Bilateral primary osteoarthritis of first carpometacarpal joints
CPT/HCPCS: 99203

== ENCOUNTER → 2024-07-24 09:46 | Outpatient (BNV) | payer MEDICARE, OTHER, SELFPAY | PROVIDERS: Visit Provider Radiology Diagnostic Radiology | DX: M79.642 Pain in left hand (principal); M79.641 Pain in right hand | CPT/HCPCS: 73130 ==

== ENCOUNTER 2024-08-15 13:59 | Outpatient (REF) | payer MEDICARE, OTHER, SELFPAY ==
--- OUTSIDE RECORDS SUMMARY | 2024-08-15 16:08 | XMS_ITS ---
Author Organization [facility] Address [address] [place] [address] Care Team Providers Care Knockout Worker Name Role Phone TRISTON GARCIA M.D. Primary Care Provide Laine Monahan Unavailable [phone] Allergies Allergen (clinical drug ingredient) Drug/Non Drug Allergy documented on EMR Reaction Allergy Type Onset Date Status peanut allergenic extract Peanut (Diagnostic) Throat Closes Drug Allergy Active REASON FOR VISIT INTERVAL BREAST & PELVIC, Annual SEALER OPERATOR Physical 60-85+ Medications Medication SIG (Take, Route, [...] 03/02/2023 Encounters Encounter Location Date Provider Diagnosis [facility] [address] [place] [address] 03/02/2023 Laine Hayesva Encounter for screening mammogram [...] * KRISTIAN CARRASCODOB :1950 (72 yo F)Acc No.[id number]:03/02/2023 PROGRESS NOTES Patient:?KRISTIAN CARRASCO Appointment Provider:?Laine loza M.D. :1950???Age:72 Y???Sex:Female D ate:03/02/2023 Address: [address] , [place] Pcp:Ye ZAVALA Subjective: * Chief Complaints: * ???INTERVAL BREAST & PELVICA nnual SEALER OPERATOR Physical 60-85+ * HPI: ???New/Follow-up Patient Consult:? 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 * Medical History:? 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 Control:?[place].?Colonoscopy?yes, 06/2017, BENIGN polyps 06/2014 .?Bone Density:?2021, 04/20/21, [...] 1 capsule Orally Three x a dayDiscontinued Norris 3 120- 180 MG Capsule 1 capsule [...] * Images: Billing Information: * Visit Code:? 88489 Preventive Care Est Pt. Age 65 and over. * Procedure Codes:? * Sign off status: Completed true * Appointment Provider:?Laine Seth M.D. 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
--- OUTSIDE RECORDS SUMMARY | 2024-08-15 16:08 | XMS_ITS | Patient Health Record ---
Author Organization [facility] Address [address] [place] [address] Care Team Providers Care Motor Vehicle Operator Road Supervisor Name Role Phone TRISTON GARCIA M.D. Primary Care Provide Laine Monahan Unavailable [phone] Allergies Allergen (clinical drug ingredient) Drug/Non Drug [...] Status Risk Notes Problem Postmenopausal atrophic vaginitis (28142017) Postmenopausal atrophic vaginitis (N95.2) Active confirmed Problem Age-related osteoporosis (655759181) Age-related osteoporosis without current pathological fracture (M81.0) Active confirmed Problem Screening for malignant neoplasm of breast (249558734) Encounter for screening mammogram for malignant neoplasm of breast (Z12.31) Active confirmed Problem Hyperlipidemia (54963497) Other and unspecified hyperlipidemia (272.4) Active confirmed Major Problem Menopausal symptom (16093589) Symptomatic menopausal or female climacteric states (627.2) Active confirmed Major Problem Osteoporosis (68371413) Unspecified osteoporosis (733.00) Active confirmed Major Problem Gynecological examination normal (665612049240695) Routine gynecological examination (V72.31) Active confirmed Problem Screening for malignant neoplasm of colon (642816594) Special screening for malignant neoplasms, colon (V76.51) Active confirmed Major Vital Signs Temperature 97.7 degrees Fahrenheit 03/06/2024 Blood pressure diastolic 80 mm Hg 03/06/2024 Height 60.8 in 03/06/2024 Blood pressure systolic 128 mm Hg 03/06/2024 Weight 116 lbs 03/06/2024 BMI 22.06 kg/m2 03/06/2024 Encounters Encounter Location Date Provider Diagnosis [address] [place] [address] 03/06/2024 Laine Seth Encounter for gynecological examination [...] Date MEDICARE [address] [place]OG[place] [id number] KRISTIAN CARRASCO Self - patient is the insured [employer] [address] [place] [address] [id number] KRISTIAN CARRASCO Self - patient is [...]
--- OUTSIDE RECORDS SUMMARY | 2024-08-15 16:09 | XMS_ITS | Patient Health Record ---
Author Organization [facility] Address [address] [place] [address] Care Team Providers Care Crm Dynamics Developer Name Role Phone PCP, Need a referral [...] Date Coverage End Date [employer] [address] [place] [address] [id number] KRISTIAN CARRASCO Self - patient is the insured Medical (General) History Medical History History ICD Code stroke on 09/19/2018 high cholesterol
--- OUTSIDE RECORDS SUMMARY | 2024-08-15 16:09 | XMS_ITS ---
Author Organization [facility] Address [address] [place] [address] Care Team Providers Care Barn Manager Name Role Phone TRISTON GARCIA M.D. 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 :1950???Age:73 Y???Sex:Female D ate:03/06/2024 Address: [address], , [place] Pcp:Ye ZAVALA. Subjective: * Chief Complaints: * ???LR MEDICARE PEAnnual QUOTE CLERK Physical 60-85+ * HPI: ???New/Follow-up Patient Consult:? 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 * Medical History:? 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 Control:?Jaqueline.?Colonoscopy?yes, 06/2017, BENIGN polyps 06/2014.?Bone Density:?04/27/23, 2021, 04/20/21, [...] * Images: Billing Information: * Visit Code:? 40796 Preventive Care Est Pt. Age 65 and over. * Procedure Codes:? * Sign off status: Completed true * Appointment Provider:?Laine Seth M.D. Date:?03/06/2024 Generated for Shlomo murguia/Diaz/eTleonardasmitting on:?08/15/2024 04:08 PM EDT History and Physical [...] ate calcium via diet and supplementation Significant QUOTE CLERK problems:: n o significant kapok machine operator symptoms or problems Examination Category Sub-Category [...]
--- OUTSIDE RECORDS SUMMARY | 2024-08-15 16:09 | XMS_ITS | Patient Health Record ---
[facility]ley [facility] Address [address] [place] [address] Care Team Providers Care Industrial Safety Engineer Name Role Phone Ten QUIROZ, Nikos Primary Care Provider Unavailable Blanche Newell Unavailable [phone] Allergies Allergen (clinical drug ingredient) Drug/Non Drug [...] Problem Status W/U Status Risk Notes Problem [id number] Hallux valgus (acquired), left foot (M20.12) Active confirmed Problem [id number] Hallux valgus (acquired), right foot (M20.11) Active confirmed Plan Of Treatment No Information Insurance Providers Payer Name Payer Address Payer Phone Subscriber Number Group Number Insured Name Patient Relationship to Insured Coverage Start Date Coverage End Date Medicare National Govt Sv[employer] [address] [place] [address] [id number] Lili Pathak Self - patient is the insured [facility] ([facility] [address] [place] [address] [id number] Lili Pathak Self - patient is the insured Medical (General) History Medical History History ICD Code Osteoporosis Stroke Surgical History Surgery Date(Month/Year) breast augmentation Retina
== END 2024-08-15 14:00 | disposition home or self-care (01) ==
LOC: HO.LAB 13:59
PROVIDERS: PCP Internal Medicine; Visit Provider Internal Medicine
DX: E55.9 Vitamin D deficiency, unspecified (principal)
CPT/HCPCS: 36415; 82306

== ENCOUNTER 2024-09-29 12:38 | Outpatient (REF) | payer MEDICARE, OTHER, SELFPAY | END 2024-09-29 12:39 | disposition home or self-care (01) | LOC: HO.MAMMO 12:38 | PROVIDERS: PCP Internal Medicine; Visit Provider Internal Medicine | DX: Z12.31 Encounter for screening mammogram for malignant neoplasm of breast (principal) | CPT/HCPCS: 77063; 77067 ==

== ENCOUNTER → 2024-09-29 12:45 | Outpatient (BNV) | payer MEDICARE, OTHER, SELFPAY | PROVIDERS: PCP Internal Medicine; Visit Provider Internal Medicine | DX: Z12.31 Encounter for screening mammogram for malignant neoplasm of breast (principal) | CPT/HCPCS: 77063; 77067 ==

== ENCOUNTER 2024-10-17 15:18 | Outpatient (AMB) | payer MEDICARE, OTHER, SELFPAY ==
--- NOTE | 2024-10-17 15:27 | A.OFFPC_ITS ---
Vital Signs 10/17/24 15:29 Height 5 ft 1 in Weight 118 lb BMI 22.3 BP 138/72 Blood Pressure Location Lt brachial Position Sitting Intake Visit Reasons: stroke, needs 30 minutes Chief Financial Officer Required: No Accompanied by: Self / Same As Patient Allergies peanut (PEANUT) Allergy (Severe, Verified 10/17/24 15:38) ANAPHYLAXIS Medication List - Last Reconciled 10/17/24 by Melania Reynoso MD alendronate 70 mg PO QWEEK ascorbic acid (vitamin C) 100 mg PO DAILY aspirin 81 mg PO DAILY atorvastatin 20 mg PO DAILY calcium polycarbophil (FiberCon) 1,250 mg (2 x 625 mg) PO DAILY 30 days cholecalciferol (vitamin D3) 50 mcg PO DAILY diclofenac sodium 1% (Aleve (diclofenac)) 2 grams topical QID 30 days hydrocortisone acetate (Anusol-HC) 25 mg SD BEDTIME 24 days menthol-zinc oxide 0.44-20.6 % (Calmoseptine) 1 appl topical QID PRN sennosides (senna) 17.2 mg (2 x 8.6 mg) PO BEDTIME PRN Tobacco use date assessed: 10/17/24 Fall risk assessment: No Falls in past year Last assessed Fall Risk: 10/17/24 Dental Screening Dental Screen Date: 10/17/24 Did you have a dental visit in the last 12 months?: Yes Did you have a dental problem in the last 6 months where you did not have access to dental care?: No Was dental information given to patient?: Patient has dentist HPI HPI Comments History of Present Illness Details The patient is a 73-year-old female presenting for management of chronic conditions. She reports a history of hypertension, with current blood pressure readings at 138/72 mmHg, which she describes as super good. Occasionally, she experiences chest pain, which she describes as a pain in the middle of the chest, possibly related to acidity, especially when lying down. Has history of stroke in 2019 with aphasia as residual deficit. The patient has a history of osteoporosis, previously managed with alendronate, which was discontinued due to side effects. She is currently on a weekly regimen for osteoporosis management, and her vitamin D levels are being monitored, with recent adjustments to her supplementation. She is due for a colon cancer screening, which she plans to complete in the upcoming year. Her cholesterol levels are being managed with atorvastatin, and she is on aspirin for stroke prevention. [facility]LY [facility] Medical History (Updated 10/17/24 @ 15:56 by Melania Reynoso MD) Epistaxis Aphasia Dyslipidemia Osteoporosis Physical exam Surgical History Hx of colonoscopy History of esophagogastroduodenoscopy (EGD) H/O bilateral breast reduction surgery Family History Father CVD (cardiovascular disease) Mother Cancer Daughter No problems noted. Social History Housing: Apartment Alcohol intake: never Patient Tobacco Use Status: Never used Tobacco e-Cigarette/Vaping Use: Never Used Second Hand Smoke Exposure: No service: No Current occupational status: unemployed and disabled Cognitive needs: No Hearing needs: No Vision needs: Yes Questionnaire Thrive Questionnaire Date Thrive assessed: 06/02/23 NATALIA-7 AMB Questionnaire NATALIA-7 Date NATALIA - 7 assessed: 06/07/24 Source: Developed by Drs. Juan Ying, Catreina Maldonado, Andre Henley and colleagues, with an educational jamaal from [employer]. Review of Systems Const All systems reviewed & are unremarkable except as noted in HPI and below Card Denies chest pain at rest, Denies chest pain with activity, Denies edema, Denies irregular heart rhythm, Denies claudication, Denies dyspnea, Denies dyspnea on exertion, Denies orthopnea, Denies paroxysmal nocturnal dyspnea and Denies slow heart rate Resp Denies cough, Denies dyspnea and Denies dyspnea on exertion GI Denies abdominal pain, Denies change in bowel habits, Denies excessive flatus, Denies nausea and Denies vomiting Denies urinary incontinence, Denies urinary hesitancy and Denies urinary urgency Musc Denies abnormal gait, Denies atrophy, Denies deformity and Denies limited range of motion Skin/Breast Denies bleeding lesions, Denies changing lesions and Denies rash Neuro Denies abnormal gait, Denies behavioral changes and Denies lack of coordination Psych Denies behavioral changes Physical exam (Primary Care) Vital Signs: Last Vital Signs BP 138/72 10/17/24 15:29 BMI result Body Mass Index 22.3 Tobacco/Smoking Status: Tobacco use Status Tobacco use date assessed 10/17/24 10/17/24 15:35 Patient Tobacco Use Status Never used Tobacco 10/17/24 15:35 e-Cigarette/Vaping Use Never Used 10/17/24 15:35 Thrive Assessment: Date of Thrive Assessment Date Thrive assessed 06/02/23 10/17/24 15:35 Resp Effort & Inspection: normal respiratory effort Auscultation: clear to auscultation bilaterally Cardio Jugular venous distension: no JVD Rate: regular rate Rhythm: regular rhythm Heart sounds: S1 normal heart sound present and S2 normal heart sound present Neuro General: gait normal and no focal motor deficits Speech: Expressive aphasia present Extrem General: Yes full ROM Coding Level of Care Code Est Pt Level 4 (28930) Complex EM visit Add On G2211 Diagnoses Chest pain R07.9 Dyslipidemia E78.5 Osteoporosis M81.0 Hypovitaminosis D E55.9 Epigastric pain R10.13 Cerebral infarction involving left middle cerebral artery I63.512 Time Spent (min) 25 Assessment & Plan Assessment & Plan (1) Chest pain: Code(s): R07.9 - Chest pain, unspecified Category: Medical (2) Dyslipidemia: Code(s): E78.5 - Hyperlipidemia, unspecified Category: Medical (3) Osteoporosis: Code(s): M81.0 - Age-related osteoporosis without current pathological fracture Category: Medical (4) Hypovitaminosis D: Code(s): E55.9 - Vitamin D deficiency, unspecified Category: Medical (5) Epigastric pain: Code(s): R10.13 - Epigastric pain Category: Medical (6) Cerebral infarction involving left middle cerebral artery: Comment: 2019 with aphasia as residual deficit Code(s): I63.512 - Cerebral infarction due to unspecified occlusion or stenosis of left middle cerebral artery Category: Medical Plan The patient will continue her current regimen for hypertension management, with regular monitoring of blood pressure to ensure it remains within target range. For osteoporosis, she will maintain her weekly treatment and continue vitamin D supplementation, with periodic lab checks to monitor levels. A colon cancer screening is planned for the upcoming year, and arrangements will be made to facilitate this. Cholesterol management will continue with atorvastatin, and aspirin will be maintained for stroke prevention, with follow-up labs scheduled in six months to assess lipid levels. Patient was informed and verbally consented to the use of an ambient scribe for clinic note documentation during this visit. Orders: Orders FL upper GI series 10/17/24 R10.13 - Epigastric pain ECG 12 lead EKG 10/17/24 R07.9 - Chest pain, unspecified Lipid Panel 6 Months E78.5 - Hyperlipidemia, unspecified Comprehensive Diana. Panel Fast 6 Months R10.13 - Epigastric pain Referrals Cologuard Test Z12.11 - Encounter for screening for malignant neoplasm of colon, Z12.12 - Encounter for screening for malignant neoplasm of rectum Medications: Discontinued sennosides (senna) Discontinued Reason: No Longer Medically Relevant 17.2 mg (2 x 8.6 mg) PO BEDTIME PRN 60 tabs 2RF constipation
[2024-10-17 15:29] VITALS: BP 138/72; BMI 22.3
== END 2024-10-17 15:58 | disposition home or self-care (01) ==
LOC: HO.HMCH 15:19
PROVIDERS: PCP Internal Medicine; Visit Provider Internal Medicine
DX: R07.9 Chest pain, unspecified (principal); I63.512 Cerebral infarction due to unspecified occlusion or stenosis of left middle cerebral artery; E78.5 Hyperlipidemia, unspecified; M81.0 Age-related osteoporosis without current pathological fracture; E55.9 Vitamin D deficiency, unspecified; R10.13 Epigastric pain

== ENCOUNTER → 2024-10-17 15:18 | Outpatient (BNVA) | payer MEDICARE, OTHER, SELFPAY | PROVIDERS: PCP Internal Medicine; Visit Provider Internal Medicine | DX: R07.9 Chest pain, unspecified (principal); E78.5 Hyperlipidemia, unspecified; M81.0 Age-related osteoporosis without current pathological fracture; R10.13 Epigastric pain; E55.9 Vitamin D deficiency, unspecified; I63.512 Cerebral infarction due to unspecified occlusion or stenosis of left middle cerebral artery | CPT/HCPCS: 99212 ==

== ENCOUNTER → 2024-10-18 11:03 | Outpatient (REF) | payer MEDICARE, OTHER, SELFPAY ==
--- NOTE | 2024-10-18 11:06 | ECG_ITS ---
Test Reason : CHEST PAIN Blood Pressure : */* mmHG Vent. Rate : 58 BPM Atrial Rate : 58 BPM P-R Int : 142 ms QRS Dur : 72 ms QT Int : 416 ms P-R-T Axes : 64 3 43 degrees QTcB Int : 408 ms Sinus bradycardia Otherwise normal ECG When compared with ECG of 24-Dec-2022 16:47, Nonspecific T wave abnormality no longer evident in Lateral leads Referred By: Melania Reynoso Electronically Signed By: NHI POLO MD
== END ==
LOC: HO.CARD 11:03
PROVIDERS: PCP Internal Medicine; Visit Provider Internal Medicine
DX: R07.9 Chest pain, unspecified (principal)
CPT/HCPCS: 93005

== ENCOUNTER → 2024-10-18 11:06 | Outpatient (BNV) | payer MEDICARE, OTHER, SELFPAY | PROVIDERS: PCP Internal Medicine; Visit Provider Internal Medicine Cardiovascular Disease | DX: R00.1 Bradycardia, unspecified (principal) | CPT/HCPCS: 93010 ==

== ENCOUNTER 2025-01-09 08:59 | Outpatient (AMB) | payer MEDICARE, OTHER, SELFPAY ==
--- NOTE | 2025-01-09 09:01 | MHC.PC.OV ---
Vital Signs 01/09/25 09:02 Height 5 ft 1 in Weight 117 lb 8 oz BMI 22.2 BP 130/70 Blood Pressure Location Lt brachial Position Sitting Pulse 85 Pulse Source Pulse Oximeter Temp 97.1 F Temp Source Temporal Artery Scan Pulse Oximetry (%) 98 Oxygen Delivery Method Room Air Intake Visit Reasons: Back pain Intake Note: Patient is here to follow up on Upper Back pain with itchyness. Wide Area Network Systems Administrator Required: No Carpet Finishing Supervisor: Not Required per policy Accompanied by: Self / Same As Patient Allergies peanut (PEANUT) Allergy (Severe, Verified 01/09/25 09:02) ANAPHYLAXIS Medication List - Last Reconciled 01/09/25 by Delonte Nick MD alendronate 70 mg PO QWEEK ascorbic acid (vitamin C) 100 mg PO DAILY aspirin 81 mg PO DAILY atorvastatin 20 mg PO DAILY calcium polycarbophil (FiberCon) 1,250 mg (2 x 625 mg) PO DAILY 30 days cholecalciferol (vitamin D3) 50 mcg PO DAILY Tobacco use date assessed: 01/09/25 Fall risk assessment: No Falls in past year Last assessed Fall Risk: 01/09/25 Dental Screening Dental Screen Date: 10/17/24 HPI HPI Comments History of Present Illness Details The patient is a 74-year-old female presenting with chronic back pain. The pain is described as an itch located internally in the back, with a severity of 6 to 7 out of 10, and has been present intermittently since August of the previous year. The pain fluctuates in intensity, coming and going, and recently reappeared over the weekend. The patient denies any fever, chills, weight changes, or other systemic symptoms. She has a history of stroke and is currently on medications including atorvastatin, aspirin, and alendronate. She has received the shingles vaccination and completed a colon cancer screening with a stool test, which was normal. [facility] Medical History Epistaxis Aphasia Dyslipidemia Osteoporosis Physical exam Surgical History Hx of colonoscopy History of esophagogastroduodenoscopy (EGD) H/O bilateral breast reduction surgery Family History Father CVD (cardiovascular disease) Mother Cancer Daughter No problems noted. Social History Housing: Apartment Alcohol intake: never Patient Tobacco Use Status: Never used Tobacco e-Cigarette/Vaping Use: Never Used Second Hand Smoke Exposure: No service: No Current occupational status: unemployed and disabled Cognitive needs: No Hearing needs: No Vision needs: Yes Questionnaire PHQ-9 Over the last 2 weeks, how often have you been bothered by any of the following problems? 1. Little interest or pleasure in doing things: not at all 2. Feeling down, depressed, or hopeless: not at all 3. Trouble falling or staying asleep, or sleeping too much: not at all 4. Feeling tired or having little energy: not at all 5. Poor appetite or overeating: not at all 6. Feeling bad about yourself - or that you are a failure or have let yourself or your family down: not at all 7. Trouble concentrating on things, such as reading the newspaper or watching television: not at all 8. Moving or speaking so slowly that other people could have noticed. Or the opposite - being so fidgety or restless that you have been moving around a lot more than usual: not at all 9. Thoughts that you would be better off or of hurting yourself in some way: not at all Total score: 0 Depression Screening Interpretation: Negative Depression Screening Done: Yes Source: Developed by Drs. Juan Ying, Caterina Maldonado, Andre Henley and colleagues, with an educational jamaal from [employer]. Thrive Questionnaire Date Thrive assessed: 01/09/25 I am a: Patient What is your living situation today?: I have a steady place to live Within the past 12 months, did the food you bought not last and you didn't have the money to get more?: Never true Within the past 12 months, did you worry whether your food would run out before you got money to buy more?: Never true Do you have trouble paying for medicines?: No Do you have trouble getting transportation to medical appointments?: No Do you have trouble paying your heating and electricity bill?: No Do you have trouble taking care of your child, family member or friend?: No Do you have trouble with day-to-day activities such as bathing, preparing meals, shopping, managing finances, etc.?: No Are you currently unemployed and looking for a job?: No Are you interested in more education?: No Please select the resources that you would like help with: None Currently or been in a relationship where the following occur: No concerns reported THRIVE Score: 0 AUDIT C Alcohol Use Questionnaire (AUDIT-C) 1. How often do you have a drink containing alcohol?: Never Total Score: 0 NATALIA-7 AMB Questionnaire NATALIA-7 Date NATALIA - 7 assessed: 06/07/24 Feeling nervous, anxious, or on edge: 0 = Not at all Not being able to stop or control worryin = Not at all Worrying too much about different things: 0 = Not at all Trouble relaxin = Not at all Being so restless that it is hard to sit still: 0 = Not at all Becoming easily annoyed or irritable: 0 = Not at all Feeling afraid as if something awful might happen: 0 = Not at all Total NATALIA-7 score (0-4 normal; 5-9 mild; 10-14 moderate; 15-21 severe): 0 Source: Developed by Drs. Juan Ying, Caterina Maldonado, Andre Henley and colleagues, with an educational jamaal from [employer]. Review of Systems Const Details: Positives besides what was mentioned in HPI are in BOLD Constitutional: No Weight Change, No Fever, No Chills, No Night Sweats, No Fatigue, No Malaise ENT/Mouth: No Hearing Changes, No Ear Pain, No Nasal Congestion, No Sinus Pain, No Hoarseness, No sore throat, No Rhinorrhea, No Swallowing Difficulty Eyes: No Eye Pain, No Swelling, No Redness, No Foreign Body, No Discharge, No Vision Changes Cardiovascular: No Chest Pain, No SOB, No PND, No Dyspnea on Exertion, No Orthopnea, No Claudication, No Edema, No Palpitations Respiratory: No Cough, No Sputum, No Wheezing, No Smoke Exposure, No Dyspnea Gastrointestinal: No Nausea, No Vomiting, No Diarrhea, No Constipation, No Pain, No Heartburn, No Anorexia, No Dysphagia, No Hematochezia, No Melena, No Flatulence, No Jaundice Genitourinary: No Dysmenorrhea, No DUB, No Dyspareunia, No Dysuria, No Urinary Frequency, No Hematuria, No Urinary Incontinence, No Urgency, No Flank Pain, No Urinary Flow Changes, No Hesitancy Musculoskeletal: No Arthralgias, No Myalgias, No Joint Swelling, No Joint Stiffness, No Back Pain, No Neck Pain, No Injury History Skin: No Skin Lesions, No Pruritis, No Hair Changes, No Breast/Skin Changes, No Nipple Discharge Neuro: No Weakness, No Numbness, No Paresthesias, No Loss of Consciousness, No Syncope, No Dizziness, No Headache, No Coordination Changes, No Recent Falls Psych: No Anxiety/Panic, No Depression, No Insomnia, No Personality Changes, No Delusions, No Rumination, No SI/HI/AH/VH, No Social Issues, No Memory Changes, No Violence/Abuse Hx., No Eating Concerns Heme/Lymph: No Bruising, No Bleeding, No Transfusions History, No Lymphadenopathy Endocrine: No Polyuria, No Polydipsia, No Temperature Intolerance Physical exam (Primary Care) Vital Signs: Last Vital Signs Temp 97.1 F 01/09/25 09:02 Pulse 85 01/09/25 09:02 BP 130/70 01/09/25 09:02 Pulse Ox 98 01/09/25 09:02 Oxygen Delivery Method Room Air 01/09/25 09:02 BMI result Body Mass Index 22.2 Tobacco/Smoking Status: Tobacco use Status Tobacco use date assessed 01/09/25 01/09/25 09:07 Patient Tobacco Use Status Never used Tobacco 01/09/25 09:07 e-Cigarette/Vaping Use Never Used 01/09/25 09:07 PHQ-9: PHQ-9 Score PHQ-9: Total score 0 01/09/25 09:07 Depression Screening Interpretation: Negative Thrive Assessment: Date of Thrive Assessment Date Thrive assessed 01/09/25 01/09/25 09:07 Currently or been in a relationship where the following occur: No concerns reported Const Other: Pertinent findings are in BOLD GENERAL APPEARANCE NAD, activity normal for age, well developed/ well nourished, no cyanosis, pallor, or diaphoresis. EYES lids/conjunctiva normal. EARS/NOSE/THROAT Mucous membranes moist, nares normal, lips/teeth normal uvula midline without oral pharyngeal erythema, exudate or swelling TMs normal bilaterally. No lymphangitis/lymphedema. HEAD/NECK normocephalic atraumatic, no facial trauma, neck is supple. RESPIRATORY respiratory effort normal, speaks in full sentences, no tripod position, no accessory muscle use. Lungs clear to auscultation without rhonchi, wheezes, rales CARDIAC Regular rate and rhythm, no edema. ABDOMINAL Soft, ND/NT. No evidence of fluid wave. No pulsatile masses on exam, rebound tenderness, Jeffries sign or pain over Mcburney's point. MUSCLES/EXTREMITIES No abnormal range of motion, no swelling. SKIN Warm, pink and dry. No rashes, dermatoses, petechiae or lesions. Right upper back lump. NEUROLOGICAL Speech is clear and appropriate. Normal level of consciousness. Gait and coordination are normal. 5/5 strength in all extremities. PSYCH Normal mood and affect. 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 We will get CT scan of the chest to evasluate. Based on Ct scan results we will decide on next step. OTC Tylenol as needed. Plan I discussed with the patient the plan to perform a CT scan to investigate the cause of her back pain, considering the possibility of a lipoma. We also talked about using Tylenol for pain relief as needed. I reassured her that the fluctuating nature of the pain suggests it is not likely to be serious. We will follow up with the CT scan results to determine the next steps. Orders: Orders CT chest wo IV con Today D49.2 - Neoplasm of unspecified behavior of bone, soft tissue, and skin
[2025-01-09 09:02] VITALS: BP 130/70; PULSE 85; TEMP 36.2; O2SAT 98; BMI 22.2
== END 2025-01-09 10:03 | disposition home or self-care (01) ==
LOC: HO.HMCH 09:00
PROVIDERS: PCP Internal Medicine; Visit Provider Internal Medicine
DX: D49.2 Neoplasm of unspecified behavior of bone, soft tissue, and skin (principal)

== ENCOUNTER → 2025-01-09 08:59 | Outpatient (BNVA) | payer MEDICARE, OTHER, SELFPAY | PROVIDERS: PCP Internal Medicine; Visit Provider Internal Medicine | DX: D49.2 Neoplasm of unspecified behavior of bone, soft tissue, and skin (principal) | CPT/HCPCS: 99212 ==

== ENCOUNTER 2025-02-06 09:06 | Outpatient (REF) | payer MEDICARE, OTHER, SELFPAY | END 2025-02-06 09:07 | disposition home or self-care (01) | LOC: HO.XRAY 09:06 | PROVIDERS: PCP Internal Medicine; Visit Provider Internal Medicine | DX: Z13.89 Encounter for screening for other disorder (principal) ==

== ENCOUNTER 2025-02-13 13:17 | Outpatient (AMB) | payer MEDICARE, OTHER, SELFPAY ==
[2025-02-13 13:20] VITALS: BP 136/80; PULSE 73; TEMP 36.6; O2SAT 99; BMI 22.3
--- NOTE | 2025-02-13 13:20 | AM.OFFWIN_ITS ---
Intake Vital Signs 02/13/25 13:20 Height 5 ft 1 in Weight 118 lb BMI 22.3 BP 136/80 Blood Pressure Location Rt brachial Position Sitting Pulse 73 Pulse Source Pulse Oximeter Temp 97.8 F Temp Source Oral Pulse Oximetry (%) 99 Oxygen Delivery Method Room Air Intake Visit Reasons: EP Itchiness on back Intake Note: Patient presents with c/o itchiness & burning on back - ongoing problem x1 year Patient Tobacco Use Status: Never used Tobacco Allergies peanut (PEANUT) Allergy (Severe, Verified 02/13/25 13:29) ANAPHYLAXIS Do you need a note to return to daycare/school/sports/work: No HPI HPI Comments History of Present Illness Details History of Present Illness - The patient is a 74-year-old Tajik f emale presenting with an educational sign language interpreter for persistent pruritus and back pain. - Patient is a difficult historian. - The patient reports experiencing itchi ng and pain in the back for approximately one year, initially starting in one area and spreading to others. - The itching is described as severe and persistent, with a sensation of something under the skin. - She feels like she has something in he r body. - Her pain is in the mid right back and the pain does not radiate anywhere. - Previous consultations with a physicia n did not identify a specific problem besides a mass, and [id number] treatments were attempted without relief. - The patient reports that she has been seen for this in Dec. - A previous physician noted a bulge on the back, leading to a recommendation for imaging studies. - The patient has been waiting for a CT scan do to be done, as she has had x- rays in September that were normal. - She is worried that she has cancer. - She has no new symptoms today. Physical Exam General: Cooperative, healthy appearing, comfortable, no acute distress and well developed Orientation: Patient oriented x3 Limitations: No limitations Neck: Normal visual inspection and Yes full ROM Respiratory: Normal respiratory effort and able to speak in complete sentences. Clear to auscultation bilaterally Cardiovascular: Regular rate and rhythm. Normal S1 and S2 GI: Normal to inspection. Soft to palpation and nontender, non distended. No TTP or CVA tenderness noted. Skin: White spots noted on the back. No other rashes or lesions. Back: FROM of the spine in intact. Flexion and extension is intact. No midline spinous tenderness noted. No step off noted. TTP of the right thoracic paraspinous muscles. Tender, raised soft area noted on the right mid back. No obvious masses noted. Neuro: Patient oriented x3. Sensation is intact. Extremities: Normal to inspection. Strength is 5/5 on the LE. Ambulates with steady gait. Patient was informed and verbally consented to the use of an ambient scribe for clinic note documentation during this visit. [facility] Medical History Epistaxis Aphasia Dyslipidemia Osteoporosis Physical exam Surgical History Hx of colonoscopy History of esophagogastroduodenoscopy (EGD) H/O bilateral breast reduction surgery Family History Father CVD (cardiovascular disease) Mother Cancer Daughter No problems noted. Social History Housing: Apartment Alcohol intake: never Patient Tobacco Use Status: Never used Tobacco e-Cigarette/Vaping Use: Never Used Second Hand Smoke Exposure: No service: No Current occupational status: unemployed and disabled Cognitive needs: No Hearing needs: No Vision needs: Yes Review of Systems Const All systems reviewed & are unremarkable except as noted in HPI and below Physical Exam Vital Signs: Last Vital Signs Temp 97.8 F 02/13/25 13:20 Pulse 73 02/13/25 13:20 BP 136/80 02/13/25 13:20 Pulse Ox 99 02/13/25 13:20 Oxygen Delivery Method Room Air 02/13/25 13:20 BMI result Body Mass Index 22.3 Assessment & Plan Assessment & Plan (1) Back pain: Code(s): M54.9 - Dorsalgia, unspecified Qualifiers: Back pain location: thoracic back pain Chronicity: chronic Back pain laterality: right Qualified Code(s): M54.6 - Pain in thoracic spine; G89.29 - Other chronic pain Plan Most likely mass on the back likely a lipoma? With the educational sign language interpreter, it was explained that she is waiting for the CT scan to do done that was ordered. It seemed as though the patient did not quite understand. I read her the notes from the workload and made her aware that her CT has been scheduled and she needs labs before she has the CT done. plan - Prescribed naproxen for pain management. - Prescribed a five-day course of prednisone to alleviate itching and inflammation. - Recommended follow-up with primary care for further evaluation and management. - Advised to complete imaging studies as scheduled to evaluate the suspected mass. - CT scan ordered by another provider to assess the nature of the mass. - Blood work required prior to CT scan for contrast administration. Medications: New naproxen 500 mg PO Q12H PRN 20 tabs 0RF pain 7 days prednisone 40 mg (2 x 20 mg) PO DAILY 10 tabs 0RF 5 days Coding Level of Care Code Est Pt Level 4 (04955) Diagnoses Chronic right-sided thoracic back pain M54.6; G89.29 Back pain location: thoracic back pain Chronicity: chronic Back pain laterality: right
--- OUTSIDE RECORDS SUMMARY | 2025-02-13 16:58 | XMS_ITS | Encounter Summary ---
Author Organization [facility] Address [address] [place] [address] Phone Care Team Providers Care Sports Medicine Masseur Name Role Phone Laine Seth MD Unavailable Nikos Dinh MD Primary Care Provider Encounter Details Date Type Department Care Team (Late st Contact Info) Description 02/12/2025 Telephone [facility] Neurology [address] [place] [address] Serenity Coombs [place] [address] [place] [address] [email or web address] Social History Tobacco Use Types Packs/Day Years Used Date Smoking Tobacco: Never Smokeless Tobacco: Never Alcohol Use Standard Drinks/Week Comments No 0 (1 standard drink = 0.6 oz pur e alcohol) Education Answer Date Recorded Are you interested in more education? Not on santa e 08/14/2022 Are you concerned about learning? Not on file 08/14/2022 No 08/14/2022 No 08/14/2022 Digital Access Answer Date Recorded No 09/14/2022 No 09/14/2022 Reliable internet access at home? Not on file 09/14/2022 Device with a working camera? Not on file Comments Unknown Sex and Gender Information Value Date Recorded Sex Assigned at Female 01/23/2019 1:35 PM EDT Legal Sex Female 10:04 PM EDT Gender Identity Female 01/23/2019 1:35 PM EDT Sexual Orientation Straight 01/23/2019 12 :49 PM EDT documented as of this encounter Progress Notes * Serenity Coombs [place] - 02/12/2025 11:49 AM EDT Patient came into the office and stated they are on Atorvastatin, they stated they are having back pain. They looked up the medication and potential side effects on line and it said atorvastatin could cause back pain as well as the medication side effects that the pharmacy gives when you pickle solution maker the medication. Advised I would go talk with . Per patient has been on Atorvastatin for 6 years and would not be causing the back pain, and advised that they reach out to tier PCP. Spoke with patient and advised that said since they have been on the Atorvastatin for 6 years he does not feel the back pain is fro the mediation and would advise that they contact hier PCP.Advise that they would be able to order any imaging that may be needed. documented in this encounter Plan of Treatment Upcoming Encounters Date Type Department Care Team (Late st Contact Info) Description 06/07/2025 10:30 AM EST Office Visit [facility] Neurology [address] [place] [address] Regan Lieberman MD [address] [facility] 2nd [place] [address] 10/25/2025 1:30 PM EDT Office Visit [facility] Medicine [address] [place] [address] Raul Montano MD [address] [place] [address], [address] [place] [address] documented as of this encounter Visit Diagnoses Not on filedocumented in this encounter Additional Health Concerns Assessment Noted Time PHQ-2 Depression Total Score: 0 02/22/20 19 10:14 AM EST documented as of this encounter Care Teams Sports Medicine Masseur Relationship Specialty Start Date End Date Nikos Dinh MD [address] [place] [address] PCP - General Internal Medicine 03/24/21 Laine Seth MD [address] [place] [address] [place] [id number] Gynecology 02/24/19 documented as of this encounter Additional Source Comments The information contained in this document represents components of the legal health record. It is not the complete legal health record.[facility]
--- OUTSIDE RECORDS SUMMARY | 2025-02-13 16:59 | XMS_ITS | Encounter Summary ---
Author Organization [facility] Address [address] [place] [address] Phone Care Team Providers Care Bander Hand Name Role Phone Laine Seth MD Unavailable Nikos Dinh MD Primary Care Provider Encounter Details Date Type Department Care Team (Late st Contact Info) Description 03/26/2022 Procedure Pass [address] [address] Social History Tobacco Use Types Packs/Day Years Used Date Smoking Tobacco: Never Smokeless Tobacco: Never Alcohol Use Standard Drinks/Week Comments No 0 (1 standard drink = 0.6 oz pur e alcohol) Comments Unknown Sex and Gender Information Value Date Recorded Sex Assigned at Female 01/23/2019 1:35 PM EDT Legal Sex Female 10:04 PM EDT Gender Identity Female 01/23/2019 1:35 PM EDT Sexual Orientation Straight 01/23/2019 12 :49 PM EDT documented as of this encounter Plan of Treatment Upcoming Encounters Date Type Department Care Team (Late st Contact Info) Description 06/07/2025 10:30 AM EST Office Visit [facility] Neurology [address] [place] [address] Regan Lieberman MD [address] [facility], 2nd [place] [address] 10/25/2025 1:30 PM EDT Office Visit [facility] Medicine [address] [place] [address] Raul Montano MD [address] [facility], [address] [place] [address] [email or web address] documented as of this encounter Visit Diagnoses Not on filedocumented in this encounter Additional Health Concerns Assessment Noted Time PHQ-2 Depression Total Score: 0 02/22/20 19 10:14 AM EST documented as of this encounter Care Teams Bander Hand Relationship Specialty Start Date End Date Nkios Dinh MD [address] [place] [address] PCP - General Internal Medicine 03/24/21 Laine Seth MD [address] [place] [address] [place] [id number] Gynecology 02/24/19 documented as of this encounter Additional Source Comments The information contained in this document represents components of the legal health record. It is not the complete legal health record.[facility]
--- OUTSIDE RECORDS SUMMARY | 2025-02-13 16:59 | XMS_ITS | Clinical Summary ---
Author Organization [facility] Address [address] [facility] [address] [place] [address] Phone Care Team Providers Care Take Out Waiter Name Role Phone Laine Seth MD Unavailable Nikos Dinh MD Primary Care Provider Allergies Active Allergy Reactions Criticality Noted Date Comments Peanut Anaphylaxis High 09/15/2018 Medications calcium-vits C7-M-F4-minerals (BONE ESSENTIALS) 166.75 mg- 166.75 unit Cap Active garlic 1,000 mg Cap Active magnesium oxide,aspartate,ci tr 400 mg Cap 2 tablet Active phgzococ-ismd-qblw ous gluconat (MULTIVITAMIN WITH MINERALS) 9 mg iron/15 mL Liqd 1 tab(s) Acti ve omega-3 fatty acids-fish oil 300-1,000 mg Cap 1 capsule Act parminder Medication-Free TextIndications:ta kes two days every week Multimineral Plus - Tablet, Sig: Orally Once daily Indications: takes two days every week Active Medication-Free Text Magnesium Aspartate 400 Tablet, Si tablet Orally Once a day Active Medication-Free Text Garlic 1000 mg Tablet, Sig: Orally 4 daily Active Medication-Free Text Gugulipid 500 mg Capsule, Sig: Orally ONE TID Active multivitamin with minerals Liqd 1 tab(s) Orally Once daily Active calcium carbonate-vitamin D3 (CALCIUM 600 + D,3,) 1,500 mg (600 mg elemental)-200 units Tab 1 tablet Orally Once a day Active Medication-Free Text [place] 3 120-180 MG Capsule, Si capsule Orally Once a day Active calcium/vits D3/C/K2/minerals (BONE ESSENTIALS ORAL) Orally Once daily Active cholecalciferol (VITAMIN D3) 1,000 unit tablet Take 1,000 Units by mouth daily. Active loratadine (CLARITIN) 10 mg tablet Take 10 mg by mouth daily. Active coenzyme Q10 30 mg capsule Take 60 mg by mouth 3 (three) times a day. Active RESVERATROL ORAL Take 40 mg by mouth daily. Active alendronate (FOSAMAX) 70 MG tablet TAKE 1 TABLET BY MOUTH ONCE PER WEEK WITH 6-8OZ WATER @ LEAST 30MIN BEFORE FOOD/DRINK. 12 tablet 3 02/01/20 19 Active Additional Information Patient not taking.Reported on 08/07/2024 ascorbic acid (VITAMIN C ORAL) Take by mouth. Active meclizine (ANTIVERT) 25 mg tabletIndications: Vertigo Take 1 tablet (25 mg total) by mouth 3 (three) times a day as needed for dizziness. 30 tablet 04/30/19 24 Active aspirin 81 MG EC tabletIndications: Cerebrovascular accident (CVA), unspecified mechanism TAKE 1 TABLET BY MOUTH EVERY DAY 90 tablet 3 03/22/20 24 Active atorvastatin (LIPITOR) 20 MG tabletIndications: Cerebrovascular accident (CVA), unspecified mechanism,Hyperlip idemia, unspecified hyperlipidemia type Take 1 tablet (20 mg total) by mouth daily. 90 tablet 3 06/02/19 25 Active teriparatide (FORTEO) 20 mcg/dose (560mcg/2.24mL) PnIj Inject under the skin. 07/27/19 25 Active mv-min/iron/folic/ calcium/vitK (WOMEN'S MULTIVITAMIN ORAL) Take 3 tablets by mouth daily. Active coenzyme Q10 200 mg capsule Take 200 mg by mouth daily. Active calc/D3/mag ox/molecular spectroscopist/elayne/Zn/col (JOINT HEALTH-BONE STRENGTH ORAL) Take by mouth. Active ferrous sulfate (IRON ORAL) Take 27 mg by mouth daily. Active KRILL OIL ORAL Take 500 mg by mouth daily. Active Active Problems Problem Noted Date Diagnosed Date Cerebrovascular accident (CVA) 11/28/2018 Overview (11/28/2018): 09/19/18 Expressive aphasia 11/28/2018 Acute bilateral low back pain without sciatica 0 09/15/2018 Osteoporosis 05/27/2017 Impaired fasting glucose 05/27/2017 Pure hypercholesterolemia 05/27/2017 Hemorrhage of rectum and anus 05/27/2017 Seasonal allergies 05/27/2017 Encounters Date Type Department Care Team Description 02/12/2025 Telephone [facility] Neurology [address] [place] [address] Serenity Coombs [place] from Last 3 Months Immunizations Immunization Administration Dates Next Due Hep A-Hep B 06/25/2010,11/28/2009,10/29/2009 Tdap 09/24/2009 Family History Medical History Relation Comments Heart disease Father Hypertension Father Cancer Mother Diabetes Mother Heart disease Mother Hypertension Mother Heart disease Sister Relation Status Comments Brother (Age 71) Father (Age 63) Mother (Age 73) Sister Social History Tobacco Use Types Packs/Day Years [...] Orientation Straight 01/23/2019 12 :49 PM EDT Last Filed Vital Signs Vital Sign Reading Time Taken Comments Blood Pressure 130/80 02/21/2019 10:04 AM EST Pulse 84 06/02/2024 10:48 AM EST Temperature 36.6 C (97.8 F) 06/02/2024 10:48 AM EST Respiratory Rate 16 01/31/2019 11:45 AM EDT Oxygen Saturation 98% 06/02/2024 10:48 AM EST Inhaled Oxygen Concentration - - Weight 54.1 kg (119 lb 3.2 oz) 06/02/2024 10:48 AM EST Height 154.9 cm (5' 1 ) 06/02/2024 10:48 AM EST Body Mass Index 22.52 06/02/2024 10:48 AM EST Plan of Treatment Upcoming Encounters Date Type Department Care Team (Late st Contact Info) Description 06/07/2025 10:30 AM EST Office Visit [facility] Neurology [address] [place] [address] Regan Lieberman MD [address] [facility], 2nd [place] [address] [email or web address] 10/25/2025 1:30 PM EDT Office Visit [address] [address] Raul Montano MD [address] [place] [address], [address] [place] [address] [email or web address] Health Maintenance Due Date Last Done Comments HEPATITIS C SCREENING 1966 COLOGUARD 1993 FOBT 1993 SIGMOIDOSCOPY 1993 VIRTUAL COLONOSCOPY 1993 PNEUMOCOCCAL VACCINES (50+ years) (1 of 1 - PCV) 1998 ZOSTER VACCINES (1 of 2) 1998 FIT TEST 03/04/2017 03/04/2016 FOLLOW UP BONE DENSITY TESTING 04/15/2019 04/15/2017 Adult Td,Tdap Booster 09/25/2019 09/24/2009 DEPRESSION SCREENING 02/22/2020 02/21/2019 LIPID PANEL 10/22/2020 10/23/2019, 1107/2018, 12/13/2018, Additional history exists COLONOSCOPY 08/24/2022 08/24/2017 COLORECTAL CANCER SCREENING 08/24/2022 RSV VACCINE (1 - 1-dose 75+ series) 11/27/2023 INFLUENZA VACCINE (#1) 2024 COVID-19 VACCINE (2 - season) 2024 06/25/2020 HEPATITIS A VACCINES Aged Out 06/25/2010, 11/28/2009, 10/29/2009 No longer eligible based on patient's age to complete this topic OSTEOPOROSIS SCREENING INITIAL (ONE-TIME) Completed 04/15/2017 SMOKING STATUS SCREENING (Once After 26 Yrs) Completed 02/21/2019 HIB VACCINES Aged Out No longer eligi ble based on patient's age to complete this topic MENINGOCOCCAL VACCINES (ACWY) Aged Out No longer eligible based on patient's age to complete this topic MENINGOCOCCAL VACCINES (B) Aged Out N o longer eligible based on patient's age to complete this topic Medical Devices Not on file Procedures Procedure Name Priority Date/Time Associated Diagnosis Comments LIPID PANEL Routine 02/20/2019 9:30 AM EST Cerebrovascular accident (CVA), unspecified mechanism Pure hypercholesterolemia HM COLONOSCOPY FOR RESULT ENTRY ONLY Routine 08/24/2017 OUTSIDE BONE DENSITY SCREENING Routine 04/15/2017 from Last 3 Months or Most Recently Relevant to Health Maintenance Results * (ABNORMAL) Lipid panel (02/20/2019 9:30 AM EST) HDL 58 mg/dL [facility] Comment: Interpretation <40 mg/dL: Low HDL cholesterol (major risk factor for CHD) Greater than or equal to 60 mg/dL: High HDL cholesterol ( negative risk factor for CHD) HDL - cholesterol is affected by a number of factors, e.g. smoking, excerise, hormones, sex and age. CHOLESTEROL 152 0 - 240 mg/dL [facility] TRIGLYCERIDES 73 30 - 160 mg/dL [facility] LDL 79 50 - 129 mg/dL [facility] Comment: LDL levels in terms of risk for coronary heart disease: <100 mg/dL: Optimal 100-129 mg/dL: Near or above optimal 130-159 mg/dL: Borderline high 160-189 mg/dL: High >190 mg/dL: Very High CARDIAC RISK RATIO 2.6(L) 3.3 - 4.4 C [facility] Blood 02/20/2019 9:30 AM EST 02/20/2019 9:33 AM EST us Lino Rivera MD LAB BLOOD ORDERABLES Final Re sult [address] [place] [address] * COLONOSCOPY FOR RESULT ENTRY ONLY (08/24/2017) us Historical Provider HEALTH MAINTENANCE Final Result * OUTSIDE BONE DENSITY SCREENING (04/15/2017) [facility] BONE DENSITY SCREENING - EXTERNAL osteoprosis us Historical Provider HEALTH MAINTENANCE Final Result from Last 3 Months or Most Recently Relevant to Health Maintenance Insurance [employer] MEDICARE SUPPLEMENT MEDICARE PART A & B [employer] MEDICARE SUPPLEMENT MEDICARE PART A & B [employer] MEDICARE SUPPLEMENT MEDICARE PART A & B [employer] [facility] EXTENSION MEDICARE SUPPLEMENT [facility] PART [facility] & [facility] [employer] MEDICARE SUPPLEMENT MEDICARE PART A & B Member Subscriber Plan / Payer (Ef fective 2019-Present) Name:Lili Schuster Member ID:[id number] Relation to Subscriber:Self Name:Lili Schuster Subscriber ID:[id number] Payer ID:[id number] Group ID:Not on file Type:Medicare Address: [employer] [address] [employer] MEDICARE SUPPLEMENT MEDICARE PART A & B [employer] MEDICARE SUPPLEMENT MEDICARE PART A & B [facility] MEDICARE SUPPLEMENT MEDICARE PART A & B [facility] MEDICARE SUPPLEMENT MEDICARE PART A & B Advance Directives For more information, please contact: [phone] (9AM - 5PM [facility], Wednesday-Wednesday) Documents on File Type Date Recorded Patient Regional Climate Change Analyst Expl anation Healthcare Proxy 11/28/2018 Current [facility] care proxy 11/23/2018 Care Teams Take Out Waiter Relationship Specialty Start Date End Date Nikos Dinh MD [address] [place] [address] PCP - General Internal Medicine 03/24/21 Laine Seth MD [address] [place] [address] [place] [id number] Gynecology 02/24/19 Additional Source Comments The information contained in this document represents components of the legal health record. It is not the complete legal health record.[facility]
== END 2025-02-13 14:54 | disposition home or self-care (01) ==
PROVIDERS: PCP Internal Medicine; Visit Provider Physician Assistant Medical
DX: M54.6 Pain in thoracic spine (principal); G89.29 Other chronic pain

== ENCOUNTER → 2025-02-13 13:17 | Outpatient (BNVA) | payer MEDICARE, OTHER, SELFPAY | PROVIDERS: PCP Internal Medicine; Visit Provider Physician Assistant Medical | DX: M54.6 Pain in thoracic spine (principal); G89.29 Other chronic pain | CPT/HCPCS: 99212 ==

== ENCOUNTER 2025-02-20 13:16 | Outpatient (REF) | payer MEDICARE, OTHER, SELFPAY ==
[2025-02-20 14:18] LABS: Anion Gap 10 (12-20); Blood Urea Nitrogen 16 mg/dL (9-16); Calcium 9.3 mg/dL (8.4-10.2); Carbon Dioxide 30 mmol/L (22-29); Chloride 106 mmol/L (96-108); Estimated Glomerular Filt Rate > 60; Potassium 4.4 mmol/L (3.3-5.1); Sodium 142 mmol/L (135-145)
--- OUTSIDE RECORDS SUMMARY | 2025-02-20 16:12 | XMS_ITS | Clinical Summary ---
Author Organization [facility] Address [address] [place] [address] Phone Care Team Providers Care Manufacturing Quality Engineer Name Role Phone Laine Seth MD Unavailable Nikos Dinh MD Primary Care Provider Allergies Active Allergy Reactions Criticality Noted Date Comments Peanut Anaphylaxis High 09/15/2018 Medications calcium-vits U4-N-W9-minerals (BONE ESSENTIALS) 166.75 mg- 166.75 unit Cap Active garlic 1,000 mg Cap Active magnesium oxide,aspartate,ci tr 400 mg Cap 2 tablet Active lswaixwg-vuyl-xxwt ous gluconat (MULTIVITAMIN WITH MINERALS) 9 mg [...] Orally Once a day Active Medication-Free Text [place] 3 120-180 MG Capsule, Si capsule Orally [...] 200 mg by mouth daily. Active calc/D3/mag ox/utility helicopter repairer/elayne/Zn/col (JOINT HEALTH-BONE STRENGTH ORAL) Take by mouth. [...] Type Department Care Team Description 02/12/2025 Telephone [facility] Neurology [address] [place] [address] Serenity Coombs MA from Last 3 Months [...] Description 06/07/2025 10:30 AM EST Office Visit [facility] Neurology [address] [place] [address] Regan Lieberman MD [address] [facility], 2nd [place] [address] [email or web address] 10/25/2025 1:30 PM EDT Office Visit [address] [address] Raul Montano MD [address] [place] [address], [address] [place] [address] [email or web address] Health Maintenance Due Date Last Done Comments [...] (02/20/2019 9:30 AM EST) HDL 58 mg/dL [facility] Comment: Interpretation <40 mg/dL: Low HDL cholesterol (major risk factor for CHD) Greater than or equal to 60 mg/dL: High HDL cholesterol ( negative risk factor for CHD) HDL - cholesterol is affected by a number of factors, e.g. smoking, excerise, hormones, sex and age. CHOLESTEROL 152 0 - 240 mg/dL [facility] TRIGLYCERIDES 73 30 - 160 mg/dL [facility] LDL 79 50 - 129 mg/dL [facility] Comment: LDL levels in terms of risk for coronary heart disease: <100 mg/dL: Optimal 100-129 mg/dL: Near or above optimal 130-159 mg/dL: Borderline high 160-189 mg/dL: High >190 mg/dL: Very High CARDIAC RISK RATIO 2.6(L) 3.3 - 4.4 C [facility] Blood 02/20/2019 9:30 AM EST 02/20/2019 9:33 AM EST us Lino Rivera MD LAB BLOOD BKR ORDERABLES Sigrid franz Result [address] [address] * COLONOSCOPY FOR RESULT ENTRY ONLY (08/24/2017) us Historical Provider HEALTH MAINTENANCE Final Result * OUTSIDE BONE DENSITY SCREENING (04/15/2017) [facility] BONE DENSITY SCREENING - EXTERNAL osteoprosis us Historical Provider MD HEALTH MAINTENANCE Final Result from Last 3 Months or Most Recently Relevant to Health Maintenance Insurance [email or web address] MEDICARE SUPPLEMENT MEDICARE PART A & B [employer] MEDICARE SUPPLEMENT MEDICARE PART A & B [employer] MEDICARE SUPPLEMENT MEDICARE PART A & B [facility] EXTENSION MEDICARE SUPPLEMENT MEDICARE PART A & B [facility] EXTENSION MEDICARE SUPPLEMENT MEDICARE PART A & B Member Subscriber Plan / Payer (Ef fective 2019-Present) Name:Lili Schuster Member ID:[id number] Relation to Subscriber:Self Name:Lili Schuster Subscriber ID:[id number] Payer ID:[id number] Group ID:Not on file Type:Medicare Address: [employer] [address] [employer] EXTENSION MEDICARE SUPPLEMENT MEDICARE PART A & B [employer] MEDICARE SUPPLEMENT MEDICARE PART A & B [facility] MEDICARE SUPPLEMENT MEDICARE PART A & B [facility] MEDICARE SUPPLEMENT MEDICARE PART A & B Advance Directives For more information, please contact: [phone] (9AM - 5PM [facility], Wednesday-Wednesday) Documents on File Type Date Recorded Patient Interceptor Operator Expl anation Healthcare Proxy 11/28/2018 Current [facility] care proxy 11/23/2018 Care Teams Manufacturing Quality Engineer Relationship Specialty Start Date End Date Nikos Dinh MD [address] [place] [address] PCP - General Internal Medicine 03/24/21 Laine Seth MD [address] [address] [place] [address] Gynecology 02/24/19 Additional Source Comments The information contained in this document represents components of the legal health record. It is not the complete legal health record.[facility]
--- OUTSIDE RECORDS SUMMARY | 2025-02-20 16:12 | XMS_ITS | Encounter Summary ---
Author Organization [facility] Address [address] [facility] [facility] [address] [facility] [address] [place] [address] Phone Care Team Providers Care Licensing Engineer Name Role Phone Laine Seth MD Unavailable Nikos Dinh MD Primary Care Provider Encounter Details Date Type Department Care Team (Late st Contact Info) Description 03/26/2022 Procedure Pass [address] [address] Social History Tobacco Use Types Packs/Day Years [...] Description 06/07/2025 10:30 AM EST Office Visit [facility] Neurology [address] [place] [address] Regan Lieberman MD [address] [facility], 2nd [place] [address] 10/25/2025 1:30 PM EDT Office Visit [facility] Medicine [address] [place] [address] Raul Montano MD [address] [facility], [address] [place] [address] [email or web address] documented as of this encounter Visit Diagnoses Not on filedocumented in this encounter Additional Health Concerns Assessment Noted Time PHQ-2 Depression Total Score: 0 02/22/20 19 10:14 AM EST documented as of this encounter Care Teams Licensing Engineer Relationship Specialty Start Date End Date Nikos Dinh MD [address] [place] [address] PCP - General Internal Medicine 03/24/21 Laine Seth MD [address] [place] [address] Gynecology 02/24/19 documented as of this encounter Additional Source Comments The information contained in this document represents components of the legal health record. It is not the complete legal health record.[facility]
== END 2025-02-20 13:17 | disposition home or self-care (01) ==
LOC: HO.LAB 13:16
PROVIDERS: PCP Internal Medicine; Visit Provider Internal Medicine
DX: Z00.00 Encounter for general adult medical examination without abnormal findings (principal)
CPT/HCPCS: 36415; 80048

== ENCOUNTER 2025-03-12 07:59 | Outpatient (REF) | payer MEDICARE, OTHER, SELFPAY ==
--- NOTE | ~2025-03-12 | CT_ITS ---
EXAMINATION: CT CHEST WITH IV CONTRAST INDICATION: D49.2 - Neoplasm of unspecified behavior of bone, soft tissue, and skin COMPARISON: Previous chest CTA October 2019 TECHNIQUE: Helical CT scan of the chest was performed following administration of intravenous contrast. Coronal and sagittal reformatted images were generated and reviewed. This CT exam was performed with one or more of the following dose reduction techniques: automated exposure control, adjustment of the mA and/or kV according to patient size, use of iterative reconstruction technique. DLP: 70 mGy-cm CHEST: THYROID: Small left thyroid nodule measuring 5 mm. Thyroid gland otherwise unremarkable. LUNGS: Biapical pleural and parenchymal scarring and 4 mm peripheral or subpleural left upper lobe nodule axial image 175 series 3. This is similar to October 2019 exam. No new pulmonary nodule. Central airways are clear. MEDIASTINUM: There is no mediastinal lymphadenopathy. URIEL: There is no hilar lymphadenopathy. CARDIOVASCULATURE: The heart is normal in size. There is no pericardial effusion. The thoracic aorta is tortuous. There is atherosclerotic disease and narrowing at the origin of the left subclavian artery. There is a bovine arch. There may be a small esophageal hernia. DEGREE OF CORONARY CALCIFICATION: mild PLEURA: There is no pleural effusion. No pneumothorax. MAIN AIRWAYS: The mainstem bronchi and proximal branches are patent. AXILLA: There is no axillary lymphadenopathy. No chest wall mass. Postsurgical changes to the breasts likely related to patient's history of reduction mammoplasty. BONES AND SOFT TISSUES: Degenerative changes of the spine and shoulders. UPPER ABDOMEN: The visualized portions of the liver, spleen, and adrenals are unremarkable. CT/CT chest w IV con IMPRESSION: Biapical pleural and parenchymal scarring and small peripheral or subpleural 4 mm left upper lobe nodule similar to 2019 exam. No new or enlarging pulmonary nodules. No adenopathy. Mild atherosclerotic disease and coronary artery calcification. 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 Recommend correlation with blood pressures in both upper extremities to see if there is a discrepancy. Electronically signed by: Rosario Levi MD 03/12/2025 09:13 AM [facility]
--- OUTSIDE RECORDS SUMMARY | 2025-03-12 08:02 | XMS_ITS | Encounter Summary ---
Author Organization [facility] Address [address] [facility] [address] [place] [address] Phone Care Team Providers Care Specimen Accessioner Name Role Phone Laine Seth MD Unavailable Nikos Dinh MD Primary Care Provider Reason for Visit * Reason Comments Medication Refill Encounter Details Date Type Department Care Team (Late st Contact Info) Description 03/08/2025 Refill [facility] Neurology [address] [place] [address] Regan Lieberman MD [address] [facility], 2nd [place] [address] [email or web address] [email or web address] Refill Social History Tobacco Use Types Packs/Day Years [...] as of this encounter Progress Notes * Haylee Jackson MA - 03/08/2025 9:03 AM EST Rx Care Gap Status - Instructions for Clinical Staff (prescriber discretion applies): > Mismatch review guide > N/a - No action needed Visit Info Last visit: 06/02/2024 Regan Lieberman MD - Neurology [facility] [place] > Requested f/u: Return in about 1 year (around 06/02/2025). Upcoming visit: 06/07/2025 Regan Lieberman MD - Neurology [facility] [place] ACTIONS TAKEN BY Haylee Jackson MA - Criteria met. Aspirin Rx Protocol - aspirin Criteria met; renew for up to 12 months. Visit in the past 14 months: Yes documented in this encounter Plan of Treatment Upcoming Encounters Date Type Department Care Team (Late st Contact Info) Description 06/07/2025 10:30 AM EST Office Visit [facility] Neurology [address] [place] [address] Regan Lieberman MD [address] [place] [address], 2nd [place] [address] [email or web address] 10/25/2025 1:30 PM EDT Office Visit [facility] Medicine [address] [place] [address] Raul Montano MD [address] [facility], [address] [place] [address] [email or web address] documented as of this encounter Visit Diagnoses Diagnosis Cerebrovascular accident (CVA), unspecified mechanism documented in this encounter Additional Health Concerns Assessment Noted Time PHQ-2 Depression Total Score: 0 02/22/20 10:14 AM EST documented as of this encounter Care Teams Specimen Accessioner Relationship Specialty Start Date End Date Nikos Dinh MD [address] [place] [address] PCP - General Internal Medicine 03/24/21 Laine Seth MD [address] [place] [address] Gynecology 02/24/19 documented as of this encounter Additional Source Comments The information contained in this document represents components of the legal health record. It is not the complete legal health record.[facility]
--- OUTSIDE RECORDS SUMMARY | 2025-03-12 08:02 | XMS_ITS | Encounter Summary ---
Author Organization [facility] Address [address] [facility] [address] [place] [address] Phone Care Team Providers Care Extractive Metallurgist Name Role Phone Laine Seth MD Unavailable Nikos Dinh MD Primary Care Provider Encounter Details Date Type Department Care Team (Late st Contact Info) Description 03/26/2022 Procedure Pass [address] [address] Social History Tobacco Use Types Packs/Day Years [...] Description 06/07/2025 10:30 AM EST Office Visit [facility] Neurology [address] [place] [address] Regan Lieberman MD [address] [facility], 2nd [place] [address] 10/25/2025 1:30 PM EDT Office Visit [facility] [address] [place] [address] Raul Montano MD [address] [facility], [address] [place] [address] [email or web address] documented as of this encounter Visit Diagnoses Not on filedocumented in this encounter Additional Health Concerns Assessment Noted Time PHQ-2 Depression Total Score: 0 02/22/20 19 10:14 AM EST documented as of this encounter Care Teams Extractive Metallurgist Relationship Specialty Start Date End Date Nikos Dinh MD [address] [place] [address] PCP - General Internal Medicine 03/24/21 Laine Seth MD [address] [place] [address] Gynecology 02/24/19 documented as of this encounter Additional Source Comments The information contained in this document represents components of the legal health record. It is not the complete legal health record.[facility]
--- OUTSIDE RECORDS SUMMARY | 2025-03-12 08:02 | XMS_ITS | Clinical Summary ---
Author Organization [facility] Address [address] [place] [address] Phone Care Team Providers Care Animal Feeder Name Role Phone Laine Seth MD Unavailable Nikos Dinh MD Primary Care Provider Allergies Active Allergy Reactions Criticality Noted Date Comments Peanut Anaphylaxis High 09/15/2018 Medications calcium-vits X2-C-E6-minerals (BONE ESSENTIALS) 166.75 mg- 166.75 unit Cap Active garlic 1,000 mg Cap Active magnesium oxide,aspartate,c itr 400 mg Cap 2 tablet Activ e ldpxodav-aynw-jdj pura gluconat (MULTIVITAMIN WITH MINERALS) 9 mg iron/15 mL Liqd 1 tab(s) Active omega-3 fatty acids-fish oil 300-1,000 mg Cap 1 capsule Act parminder Medication-Free TextIndications:t akes two days every week Multimineral Plus - [...] Orally Once a day Active Medication-Free Text [place] 3 120-180 MG Capsule, Si capsule Orally [...] LEAST 30MIN BEFORE FOOD/DRINK. 12 tablet 3 019 Active Additional Information Patient not taking.Reported on 08/07/2024 ascorbic acid (VITAMIN C ORAL) Take by mouth. Active meclizine (ANTIVERT) 25 mg tabletIndications :Vertigo Take 1 tablet (25 mg total) by mouth 3 (three) times a day as needed for dizziness. 30 tablet 024 Active atorvastatin (LIPITOR) 20 MG tabletIndications :Cerebrovascular accident (CVA), unspecified mechanism,Hyperli pidemia, unspecified hyperlipidemia type Take 1 tablet (20 mg total) by mouth daily. 90 tablet 3 025 Active teriparatide (FORTEO) 20 mcg/dose (560mcg/2.24mL) PnIj Inject under the skin. 025 Active mv-min/iron/folic /calcium/vitK (WOMEN'S MULTIVITAMIN ORAL) Take 3 tablets by mouth daily. Active coenzyme Q10 200 mg capsule Take 200 mg by mouth daily. Active calc/D3/mag ox/helicopter technician/elayne/Zn/co l (JOINT HEALTH-BONE STRENGTH ORAL) Take by mouth. Active ferrous sulfate (IRON ORAL) Take 27 mg by mouth daily. Active KRILL OIL ORAL Take 500 mg by mouth daily. Active aspirin 81 MG EC tabletIndications :Cerebrovascular accident (CVA), unspecified mechanism TAKE 1 TABLET BY MOUTH EVERY DAY 90 tablet 3 025 Active aspirin 81 MG EC tabletIndications :Cerebrovascular accident (CVA), unspecified mechanism TAKE 1 TABLET BY MOUTH EVERY DAY 90 tablet 3 024 2024 Discontinued Active Problems Problem Noted Date Diagnosed Date Cerebrovascular accident (CVA) 11/28/2018 Overview (11/28/2018): 09/19/18 Expressive aphasia 11/28/2018 Acute bilateral low back pain without sciatica 0 09/15/2018 Osteoporosis 05/27/2017 Impaired fasting glucose 05/27/2017 Pure hypercholesterolemia 05/27/2017 Hemorrhage of rectum and anus 05/27/2017 Seasonal allergies 05/27/2017 Encounters Date Type Department Care Team Description 03/08/2025 Refill [facility] Neurology [address] [place] [address] Regan Lieberman MD Medication Refill 02/21/2025 [facility] [address] [place] [address] Regan Lieberman MD 02/12/2025 Telephone [facility] Neurology [address] [place] [address] Serenity Coombs MA from Last 3 Months [...] Description 06/07/2025 10:30 AM EST Office Visit [facility] Neurology [address] [place] [address] Regan Lieberman MD 22 [facility], 2nd [place] [address] [email or web address] 10/25/2025 1:30 PM EDT Office Visit [facility] [address] [place] [address] Raul Montano MD [address] [facility], [address] [place] [address] [email or web address] Health Maintenance Due Date Last Done Comments HEPATITIS C SCREENING 1966 COLOGUARD 1993 FOBT 1993 SIGMOIDOSCOPY 1993 VIRTUAL COLONOSCOPY 1993 PNEUMOCOCCAL VACCINES (50+ years) (1 of 1 - PCV) 1998 ZOSTER VACCINES (1 of 2) 1998 FIT TEST 03/04/2017 03/04/2016 FOLLOW UP BONE DENSITY TESTING 04/15/2019 04/15/2017 Adult Td,Tdap Booster 09/25/2019 09/24/2009 DEPRESSION SCREENING 02/22/2020 02/21/2019 LIPID PANEL 10/22/2020 10/23/2019, 07/2018, 12/13/2018, Additional history exists COLONOSCOPY 08/24/2022 08/24/2017 COLORECTAL CANCER SCREENING 08/24/2022 RSV VACCINE (1 - 1-dose 75+ series) 11/27/2023 INFLUENZA VACCINE (#1) 2024 COVID-19 VACCINE (2 - 2024- season) 2024 06/25/2020 HEPATITIS A VACCINES Aged [...] Cerebrovascular accident (CVA), unspecified mechanism Pure hypercholesterolemia COLONOSCOPY FOR RESULT ENTRY ONLY Routine 08/24/2017 OUTSIDE BONE DENSITY SCREENING Routine 04/15/2017 from Last 3 Months or Most Recently Relevant to Health Maintenance Results * (ABNORMAL) Lipid panel (02/20/2019 9:30 AM EST) HDL 58 mg/dL [facility] Comment: Interpretation <40 mg/dL: Low HDL cholesterol (major risk factor for CHD) Greater than or equal to 60 mg/dL: High HDL cholesterol ( negative risk factor for CHD) HDL - cholesterol is affected by a number of factors, e.g. smoking, excerise, hormones, sex and age. CHOLESTEROL 152 0 - 240 mg/dL [facility] TRIGLYCERIDES 73 30 - 160 mg/dL [facility] LDL 79 50 - 129 mg/dL [facility] Comment: LDL levels in terms of risk for coronary heart disease: <100 mg/dL: Optimal 100-129 mg/dL: Near or above optimal 130-159 mg/dL: Borderline high 160-189 mg/dL: High >190 mg/dL: Very High CARDIAC RISK RATIO 2.6(L) 3.3 - 4.4 C [facility] Blood 02/20/2019 9:30 AM EST 02/20/2019 9:33 AM EST us Lino Rivera MD LAB BLOOD BKR ORDERABLES Sigrid l Result [facility] [address] [place] [address] * COLONOSCOPY FOR RESULT ENTRY ONLY (08/24/2017) Historical Provider HEALTH MAINTENANCE Final Result * OUTSIDE BONE DENSITY SCREENING (04/15/2017) [facility] BONE DENSITY SCREENING - EXTERNAL osteoprosis Historical Provider HEALTH MAINTENANCE Final Result from Last 3 Months or Most Recently Relevant to Health Maintenance Insurance [facility] EXTENSION MEDICARE SUPPLEMENT MEDICARE PART A & B MEDICARE PART A [place] [address] [place] [address] EXTENSION MEDICARE SUPPLEMENT MEDICARE PART A & B [employer] EXTENSION MEDICARE SUPPLEMENT MEDICARE PART A & B Member Subscriber Plan / Payer (Ef fective 2019-) Name:Lili Schuster Member ID:[id number] Relation to Subscriber:Self Name:Lili Schuster Subscriber ID:[id number] Payer ID:[id number] Group ID:Not on file Type:Medicare Address: [facility] ([facility]) [facility] [address] [place] [address] [employer] [facility] EXTENSION MEDICARE SUPPLEMENT MEDICARE PART A & B [facility] EXTENSION MEDICARE SUPPLEMENT MEDICARE PART A & B [employer] [facility] EXTENSION MEDICARE SUPPLEMENT MEDICARE PART A & B [employer] [facility] EXTENSION MEDICARE SUPPLEMENT MEDICARE PART A & B [facility] EXTENSION MEDICARE SUPPLEMENT MEDICARE PART A & B Advance Directives For more information, please contact: [phone] (9AM - 5PM [facility], Wednesday-Wednesday) Documents on File Type Date Recorded Patient Newborn Hearing Screener Expl anation Healthcare Proxy 11/28/2018 Current [facility] care proxy 11/23/2018 Care Teams Animal Feeder Relationship Specialty Start Date End Date Nikos Dinh MD [address] [place] [address] PCP - General Internal Medicine 03/24/21 Laine Seth MD [address] [place] [address] Gynecology 02/24/19 Additional Source Comments The information contained in this document represents components of the legal health record. It is not the complete legal health record.[facility]
[2025-03-12] MEDS: iohexoL 350 MG/ML 100 ML INFUS..BTL IV (08:18)
== END 2025-03-12 08:00 | disposition home or self-care (01) ==
LOC: HO.CT 07:59
PROVIDERS: PCP Internal Medicine; Visit Provider Internal Medicine
DX: D49.2 Neoplasm of unspecified behavior of bone, soft tissue, and skin (principal)
CPT/HCPCS: 71260; Q9967

== ENCOUNTER → 2025-03-12 08:02 | Outpatient (BNV) | payer MEDICARE, OTHER, SELFPAY | PROVIDERS: PCP Internal Medicine; Visit Provider Radiology Diagnostic Radiology | DX: I70.90 Unspecified atherosclerosis (principal); I25.84 Coronary atherosclerosis due to calcified coronary lesion; I77.1 Stricture of artery | CPT/HCPCS: 71260 ==